=== PATIENT | male | born 1950 | race Caucasian/White ===

== ENCOUNTER → 2017-08-10 12:08 | Outpatient (CLI) | payer MEDICARE, OTHER, SELFPAY ==
--- NOTE | 2017-07-09 13:48 | EKG12_ITS ---
Test Reason : PRE OP Blood Pressure : / mmHG Vent. Rate : 068 BPM Atrial Rate : 068 BPM P-R Int : 176 ms QRS Dur : 078 ms QT Int : 380 ms P-R-T Axes : 073 -08 056 degrees QTc Int : 404 ms Normal sinus rhythm Low voltage QRS Possible Inferior infarct , age undetermined Abnormal ECG Confirmed by REMIGIO CROSS, GIL ([id number]), purchase request editor AMBREEN RIVERA ([id number]) on 07/12/2017 3:20:43 PM Referred By: Pramod Martin Confirmed By:GIL FLOOD MD
[2017-07-09 15:33] LABS: Hematocrit 44.9 % (40-54); Hemoglobin 14.8 g/dl (13.0-16.5); Mean Corpuscular Hgb 28.8 pg (27.0-32.0); Mean Corpuscular Volume 87.5 fL (80-94); Mean Platelet Vol. 11.5 fl (6.2-12.0); Platelet Count 178 K/mm3 (150-450); RBC Distribution Width CV 14.2 % (11.6-14.6); RBC Distribution Width SD 44.6 fl (35.1-43.9); Red Blood Count 5.13 M/mm3 (4.6-6.2); White Blood Count 8.5 K/mm3 (4.4-11.0)
[2017-07-09 15:41] LABS: International Normalized Ratio 1.1; Prothrombin Time (Protime)PT. 13.4 SECONDS (11.7-14.9); Scan Indicated on CBC? Y/N NO
[2017-07-09 15:42] LABS: Partial Thromboplast Time 34.9 Seconds (24.1-36.2)
[2017-07-09 16:06] LABS: AST(SGOT) 14 U/L (15-37); Alanine Aminotransfer ALT/SGPT 17 U/L (12-78); Albumin, Serum 3.4 g/dL (3.4-5.0); Alkaline Phosphatase 83 U/L (45-117); Anion Gap 9 (5-15); BUN 16 mg/dL (7-18); BUN/Creat Ratio 9.9 RATIO (10-20); Bilirubin, Direct 0.14 mg/dL (0.00-0.30); Calcium,Total 8.5 mg/dL (8.5-10.1); Chloride 98 mmol/L (98-107); Creatinine, Serum 1.62 mg/dL (0.70-1.30); EST Glomerular Filtration Rate 45 mL/min (>60); Est Glom Filt Rate - Afr Amer 55 mL/min (>60); Globulin 3.9 g/dL (2.2-4.2); Glucose 339 mg/dL (70-110); Potassium 4.4 mmol/L (3.5-5.1); Protein, Total 7.3 g/dL (6.4-8.2); Sodium Level 134 mmol/L (136-145)
[2017-07-09 16:32] LABS: Hemoglobin A1c 9.5 % (4.2-6.3)
== END ==
PROVIDERS: Family Provider Family Medicine; PCP Family Medicine; Visit Provider Surgery
DX: R94.31 Abnormal electrocardiogram [ECG] [EKG] (principal); Z53.9 Procedure and treatment not carried out, unspecified reason; I25.10 Atherosclerotic heart disease of native coronary artery without angina pectoris; Z95.5 Presence of coronary angioplasty implant and graft; E11.9 Type 2 diabetes mellitus without complications
CPT/HCPCS: 36415; 80048; 80076; 83036; 85027; 85610; 85730

== ENCOUNTER 2017-08-20 12:24 | Day surgery (SDC) | payer MEDICARE, OTHER, SELFPAY ==
[2017-08-20] VITALS (7 sets, daily range): BP systolic 127–171; BP diastolic 65–89; PULSE 54–68; RESP 16–20; TEMP 36.2–37; O2SAT 82–100; BMI 46.9
[2017-08-20 13:21] LABS: Bedside Glucose 183 mg/dL (70-110)
--- NOTE | 2017-08-20 14:00 | RAD_ITS ---
STUDY: X-RAY - LUMBAR SPINE REASON FOR EXAM: Male, 67 years old. Status post kyphoplasty TECHNIQUE: 7 view(s) of the lumbar spine were obtained. COMPARISON: Prior study of 03/04/2017 FINDINGS: Status post vertebroplasty changes of unknown level vertebral body noted. There is moderately severe decrease in vertical height with anterior wedging of this vertebral body. There is demonstrated a small amount of contrast extravasation into the adjacent superior disc space. RAD/Spine 1 View Any Level IMPRESSION: Status post vertebroplasty changes of an unknown level vertebral body. There is a small amount of contrast extravasation into the disc space superior to this vertebra. Electronically Signed: Alejandro Weinberg MD at 16:13 EST , Service support ,
[2017-08-20] MEDS: Cefazolin 2 GM in 0.9% Normal Saline 100 ML IV (14:24)
[2017-08-20] MEDS: Bupivacaine 0.25% 30 ML Vial (15:00)
[2017-08-20 15:40] LABS: Bedside Glucose 191 mg/dL (70-110)
--- NOTE | 2017-08-20 16:59 | SUR.PHASEII ---
reports that patient has no pain meds at home. Called Dr Yu office. Office states that Dr Lombardi can write a script for a couple days worth of pain meds and that patient can pick it up at the office. Notified patient and family of above info. They state they will probably not scrap picker the script as it will be a hassle. gave discharge instruction for kyphoplasty from [facility] on demand. patient and family deny questions.
== END 2017-08-20 17:03 | disposition home or self-care (01) ==
LOC: SDC 12:25 → ACINP 12:26 → AC 12:32
PROVIDERS: Family Provider Family Medicine; PCP Family Medicine; Visit Provider Anesthesiology Pain Medicine
DX: S22.089A Unspecified fracture of T11-T12 vertebra, initial encounter for closed fracture (principal); M89.9 Disorder of bone, unspecified; M80.08XA Age-related osteoporosis with current pathological fracture, vertebra(e), initial encounter for fracture; I10 Essential (primary) hypertension; K21.9 Gastro-esophageal reflux disease without esophagitis; F32.9 Major depressive disorder, single episode, unspecified; E11.9 Type 2 diabetes mellitus without complications; E78.00 Pure hypercholesterolemia, unspecified; Z79.4 Long term (current) use of insulin; Z87.891 Personal history of nicotine dependence; Z85.72 Personal history of non-Hodgkin lymphomas
CPT/HCPCS: 22513; 22515; 72020; 76000; 82962; J3010; J7120; J2405

== ENCOUNTER → 2017-09-29 13:26 | Outpatient (CLI) | payer MEDICARE, OTHER, SELFPAY ==
[2017-09-29 14:11] LABS: Amphetamine Urine VISTA NEGATIVE (<1000 ng/mL); Barbiturate Urine VISTA NEGATIVE (< 200 ng/mL); Benzodiazepine Urine VISTA NEGATIVE (< 200 ng/mL); Cocaine Urine VISTA NEGATIVE (< 300 ng/mL); Ecstacy Urine VISTA NEGATIVE (< 500 ng/mL); Methadone Urine VISTA NEGATIVE (< 300 ng/mL); PCP Urine VISTA NEGATIVE (< 25 ng/mL); THC Urine VISTA NEGATIVE (< 50 ng/mL); Vista UDS pH Range 6
== END ==
PROVIDERS: Family Provider Family Medicine; PCP Family Medicine; Visit Provider Anesthesiology Pain Medicine
DX: F11.20 Opioid dependence, uncomplicated (principal)
CPT/HCPCS: 80307

== ENCOUNTER 2017-11-16 16:08 | Emergency (ER) | payer MEDICARE, OTHER, SELFPAY ==
[2017-11-16 16:09] VITALS: BP 120/68; PULSE 65; RESP 20; TEMP 36.7; O2SAT 98; BMI 44.7
--- NOTE | 2017-11-16 16:12 | RAD_ITS ---
STUDY: X-RAY - LEFT HAND REASON FOR EXAM: Male, 67 years old. Smashed fingers TECHNIQUE: 3 view(s) of the hand. There is a ring on the fourth digit. COMPARISON: None. FINDINGS: There is a well-corticated appearing step-off in the distal radius suggesting prior injury. There is positive ulnar variance and chondrocalcinosis. Normal visualized carpal bones. Normal carpal articulations Normal carpometacarpal articulation of the thumb. Normal second through fifth carpometacarpal joints. Normal metacarpi. Normal metacarpophalangeal joint of the thumb. Normal interphalangeal joint of the thumb. Normal proximal and distal phalanges of the thumb. There is chondrocalcinosis or heterotopic bone at the metacarpophalangeal joint of the second digit and to a lesser degree the third digit. There is degenerative change of the first through fifth distal interphalangeal joints. Normal phalanges of the second through fifth fingers. RAD/Hand Min 3 Views IMPRESSION: Remote or prior fracture of the distal radius. Chondrocalcinosis involving the wrist and metacarpophalangeal joints of the second and third digits consistent with degenerative change and can be associated with osteoarthritis and/or other etiologies such as pleural phosphate arthritides. There is degenerative change without definitive evidence of an acute fracture of the second and third digits. Electronically Signed: Siobhan Alex MD at 16:37 EDT Tel , Service support ,
--- NOTE | 2017-11-16 17:09 | ED.DCSUM_ITS ---
- ER Visit Summary Date of Service: 11/16/17 Chief Complaint: Left hand injury History of Present Illness: The patient is a 67 M who states that just prior to arrival he was putting in screens and a storm window came down smashing his fingertips. He notes injury to the left index and long fingertips. Physical Examination: Afebrile vital signs are stable There is a very small subungual hematoma involving the left index fingernail. There is a 0.5 cm superficial well approximated non-gaping laceration to the volar aspect of the left long finger. Test Results: Hand films through protocol were negative for fracture Emergency Department Course and Treatment: Tetanus is updated with Adacel. Wound was cleansed and dressed. Follow-up as needed return if worsening. Impression: 1. Left index finger subungual hematoma 2. Left long finger 0.5 cm laceration without repair 3. Tetanus update This note was generated with [employer] dictation software. It may contain incorrect words, spelling, and punctuation that were not noted in review of the chart prior to signing ED Disposition - Plan for ED Patient: Disposition: Home or Assisted Living Chief Complaint: Upper Extremity Injury Instructions: Subungual Hematoma, ED Laceration Hand Referrals: Jorge Dao DO [Primary Care Provider] - As Needed
[2017-11-16] MEDS: Diphth,Pertuss(Acell),Tet Vac 0.5 ML Vial IM (17:27)
== END 2017-11-16 17:31 | disposition home or self-care (01) ==
PROVIDERS: Emergency Provider Emergency Medicine; Family Provider Family Medicine; PCP Family Medicine
DX: S61.213A Laceration without foreign body of left middle finger without damage to nail, initial encounter (principal); S60.122A Contusion of left index finger with damage to nail, initial encounter; W22.8XXA Striking against or struck by other objects, initial encounter; Y93.9 Activity, unspecified; Y92.9 Unspecified place or not applicable; Z23 Encounter for immunization; I10 Essential (primary) hypertension; E78.00 Pure hypercholesterolemia, unspecified; E66.9 Obesity, unspecified; Z79.4 Long term (current) use of insulin; Z79.899 Other long term (current) drug therapy
CPT/HCPCS: 73130; 90715; 99282

== ENCOUNTER 2017-12-15 13:00 | Inpatient (IN) | payer MEDICARE, OTHER, SELFPAY ==
[2017-12-15 13:02] VITALS: BP 128/68; PULSE 60; PULSE 66; RESP 18; TEMP 36.3; O2SAT 98; BMI 43.7
[2017-12-15 13:23] VITALS: O2SAT 95
--- NOTE | 2017-12-15 13:37 | CT_ITS ---
STUDY: CT BRAIN WITHOUT CONTRAST REASON FOR EXAM: Male, 67 years old. Fall. History of subdural hemorrhage 2014. RADIATION DOSAGE (If Supplied By Facility): CTDIvol = ( 44.99 ) mGy, DLP = ( 812.98 ) mGycm TECHNIQUE: Transaxial CT imaging of the brain was performed without administration of intravenous contrast material. Individualized dose optimization techniques were used for this CT. COMPARISON: January 29, 2015. FINDINGS: Normal soft tissue structures. Normal calvarium. There is asymmetry of the ventricles consistent with an anatomic variant. There are areas of decreased attenuation within the white matter tracts of the supratentorial brain, consistent with microvascular disease changes. This is most marked in the right frontal region. Normal basal ganglia and thalami. Normal brainstem. Normal cerebellum. There is no intracranial hemorrhage. There are no findings of an acute ischemic infarction. There is stable mucoperiosteal reaction in the maxillary sinuses. CT/Brain/Head without Contrast IMPRESSION: 1. Focal area of low attenuation in the right frontal white matter thought to represent a remote infarct. This was not present on the prior exam. There is no evidence of edema midline shift or sulcal effacement to suggest acuity. Remainder of the findings are unchanged and unremarkable. Electronically Signed: Kayode Mohan DO at 15:03 EDT Tel [phone], Service support ,
--- NOTE | 2017-12-15 13:38 | EKG12_ITS ---
Test Reason : FALL Blood Pressure : / mmHG Vent. Rate : 060 BPM Atrial Rate : 060 BPM P-R Int : 168 ms QRS Dur : 096 ms QT Int : 424 ms P-R-T Axes : 035 -13 048 degrees QTc Int : 424 ms Normal sinus rhythm Normal ECG Confirmed by CARITO GREWAL MD ([id number]), news editor AMBREEN RIVERA ([id number]) on 12/28/2017 12:58:14 PM Referred By: BAR Confirmed By:CARITO GREWAL MD
[2017-12-15] MEDS: Morphine 4 MG/ML Syringe IV (14:23)
[2017-12-15] MEDS: Ondansetron 4 MG/2 ML Vial IV (14:23)
[2017-12-15 14:27] LABS: Absolute Lymphocyte Count 0.81 X10^3/ul (0.83-4.51); Absolute Neutrophil Count 8.7 X10^3/uL (2.0-7.7); Basophil# 0.01 X10^3/uL; Basophil% 0.1 % (0-1); Eosinophil# 0.08 X10^3/uL; Eosinophils% 0.8 % (0-5); Hematocrit 43.9 % (40-54); Hemoglobin 14.5 g/dl (13.0-16.5); Lymphocyte # 0.81 X10^3/ul (4.0); Lymphocyte % 7.6 % (19-41); Mean Corpuscular Hgb 27.6 pg (27.0-32.0); Mean Corpuscular Volume 83.5 fL (80-94); Mean Platelet Vol. 11.6 fl (6.2-12.0); Monocyte# 0.98 X10^3/uL; Monocyte% 9.2 % (0-10); Neutrophil # 8.71 X10^3/uL (2.7-7.7); Platelet Count 185 K/mm3 (150-450); RBC Distribution Width CV 15.1 % (11.6-14.6); RBC Distribution Width SD 45.8 fl (35.1-43.9); Red Blood Count 5.26 M/mm3 (4.6-6.2); White Blood Count 10.6 K/mm3 (4.4-11.0)
[2017-12-15 14:28] LABS: POSITIVE COUNT NO; POSITIVE DIFFERENTIAL NO; POSITIVE MORPHOLOGY NO
[2017-12-15 14:44] LABS: Anion Gap 6 (5-15); BUN 18 mg/dL (7-18); BUN/Creat Ratio 11.5 RATIO (10-20); Calcium,Total 8.2 mg/dL (8.5-10.1); Chloride 104 mmol/L (98-107); Creatinine, Serum 1.57 mg/dL (0.70-1.30); EST Glomerular Filtration Rate 47 mL/min (>60); Est Glom Filt Rate - Afr Amer 57 mL/min (>60); Estimated Creatinine Clearance 47.96 ml/min; Glucose 139 mg/dL (74-106); Potassium 4.2 mmol/L (3.5-5.1); Sodium Level 138 mmol/L (136-145)
--- NOTE | 2017-12-15 14:55 | RAD_ITS ---
STUDY: X-RAY - UNILATERAL RIBS ( LEFT ) WITH CHEST REASON FOR EXAM: Male, 67 years old. Left mid lateral rib pain secondary to injury. TECHNIQUE - RIBS: 5 view(s) of the ribs. TECHNIQUE - CHEST: Single PA view of the chest. COMPARISON: April 05, 2016. FINDINGS - RIBS: Normal visualized ribs without a demonstrated fracture. FINDINGS - CHEST: Stable right jugular Port-A-Cath. The lungs are clear and expanded. No acute infiltrate or mass. There is no pneumothorax. There is no demonstrated pleural abnormality. Normal size heart. Normal mediastinum and tanya. Normal visualized pulmonary arteries. Normal visualized aortic arch and descending thoracic aorta. There are diffuse degenerative changes of the visualized thoracic spine. There is degenerative osteoarthritis of the bilateral shoulders. There is no demonstrated abnormality of the visualized soft tissue structures of the upper abdomen. RAD/Ribs Uni Min 3V w/PA Chest IMPRESSION: RIBS: Normal x-ray examination of the ribs. CHEST: No acute cardiopulmonary disease or interval change. Electronically Signed: Kayode Mohan DO at 15:11 EDT Tel [phone], Service support ,
[2017-12-15 15:57] VITALS: BP 127/60; PULSE 80; RESP 18; O2SAT 96
--- NOTE | 2017-12-15 15:59 | ED.VISSUMM ---
- ER Visit Summary Date of Service: 12/15/17 Chief Complaint: Ribs hurt History of Present Illness: The patient is a 67 M with frequent falls. He fell today and hit his left ribs on a lawn chair. He fell because his legs are weak. This is not a new issue, and he falls frequently. He does use a cane, but is unsteady even with the cane. He denies loss of consciousness. He denies head or neck pain. He only complains of pain to his left lateral chest wall. Worse with breathing and moving. Physical Examination: Vital signs unremarkable. Alert and oriented. No acute distress. Head and neck atraumatic. Neck nontender. Cranial nerves grossly intact. Heart regular. Lungs clear. Left anterior lateral inferior ribs are tender to palpation. No crepitus or deformity noted. Abdomen soft and nontender. Back is nontender. Extremities atraumatic. Skin appears slightly pale but otherwise unremarkable. He is alert and oriented with no focal or lateralizing neurologic abnormalities grossly. Test Results: EKG showed sinus rhythm at a rate of 60. No acute ischemia or infarction changes. CBC normal. Glucose 139 creatinine 1.57. Urinalysis pending. Troponin normal. X-rays of his ribs and chest showed no acute findings. 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 Emergency Department Course and Treatment: Patient received fluids, morphine, and Zofran while awaiting results. Patient's expressed to me that he falls very frequently. He is unsteady on his feet at baseline. He is continuing to do worse at home and she is concerned about his safety. Patient also does not feel comfortable going home. I advised that there is not much to do to help him in a short stay in the hospital, but he may require custodial or rehab placement. He voiced understanding. We will contact the hospitalist for further care. Treatment Plan: As above Disposition: Admission Impression: 1. Frequent falls 2. Left rib pain This note was generated with [employer] dictation software. It may contain incorrect words, spelling, and punctuation that were not noted in review of the chart prior to signing ED Disposition - Plan for ED Patient: Chief Complaint: Fall Referrals: Jorge Dao DO [Primary Care Provider] -
--- NOTE | 2017-12-15 16:03 | ED.DCSUM_ITS ---
- ER Visit Summary Date of Service: 12/15/17 Chief Complaint: Ribs hurt History of Present Illness: The patient is a 67 M with frequent falls. He fell today and hit his left ribs on a lawn chair. He fell because his legs are weak. This is not a new issue, and he falls frequently. He does use a cane, but is unsteady even with the cane. He denies loss of consciousness. He denies head or neck pain. He only complains of pain to his left lateral chest wall. Worse with breathing and moving. Physical Examination: Vital signs unremarkable. Alert and oriented. No acute distress. Head and neck atraumatic. Neck nontender. Cranial nerves grossly intact. Heart regular. Lungs clear. Left anterior lateral inferior ribs are tender to palpation. No crepitus or deformity noted. Abdomen soft and nontender. Back is nontender. Extremities atraumatic. Skin appears slightly pale but otherwise unremarkable. He is alert and oriented with no focal or lateralizing neurologic abnormalities grossly. Test Results: EKG showed sinus rhythm at a rate of 60. No acute ischemia or infarction changes. CBC normal. Glucose 139 creatinine 1.57. Urinalysis pending. Troponin normal. X-rays of his ribs and chest showed no acute findings. 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 Emergency Department Course and Treatment: Patient received fluids, morphine, and Zofran while awaiting results. Patient's expressed to me that he falls very frequently. He is unsteady on his feet at baseline. He is continuing to do worse at home and she is concerned about his safety. Patient also does not feel comfortable going home. I advised that there is not much to do to help him in a short stay in the hospital, but he may require mcc or rehab placement. He voiced understanding. We will contact the hospitalist for further care. Treatment Plan: As above Disposition: Admission Impression: 1. Frequent falls 2. Left rib pain This note was generated with [employer] dictation software. It may contain incorrect words, spelling, and punctuation that were not noted in review of the chart prior to signing ED Disposition - Plan for ED Patient: Chief Complaint: Fall Referrals: Jorge Dao DO [Primary Care Provider] -
--- NOTE | 2017-12-15 16:05 | CM.ED ---
CM INITIAL ASSESSMENT: Patient assessed in the ED with his at bedside. Home: Patient lives in a one story home with his . He states there are no steps into the home. HHS/Aides: Patient denies currently having HHS/aides. He states he's previously had HHS through [facility] and would be agreeable to receiving care from [facility] again, if needed. DME: Patient states he uses a cane, showever chair, and grab bars for the shower. He has a walker available to him. Home Oxygen: Denies. Pharmacy: [facility] in [place] Advance Directives: Yes, patient states his medical POA is Jorge Dao. Upon viewing patient's e-chart, the scanned AD documents are in fact for the patient's . Will notify family and request them to bring in the correct documents. PCP: Jorge Dao Specialists: Dr. Skelton, Dr. Villafana, Dr. Pandey at [facility] for non hodgkin's lymphoma, and [facility] for skin cancer removal. DC Plan: Undetermined. Patient would like to return home upon discharge. Patient's states that the patient was a resident at [facility] three years ago after a brain bleed. CM will continue to follow for safe and effective discharge planning.
[2017-12-15 16:13] VITALS: BP 139/69; PULSE 58; RESP 18; TEMP 34.4
--- NOTE | 2017-12-15 16:20 | CM.ED ---
Patient states that, if a senior living home is recommended, his preference would be [facility]. He was a previous resident there approximately three years ago. Patient and updated to bring in patient's advance directive documents to be correctly scanned to e-chart. HIM notified to correct chart.
[2017-12-15 16:35] LABS: Bacteria 0 SEEN /hpf (None Seen); Mucous, Urine 0 SEEN /hpf (<or=2+); Red Blood Cells-Urine 0 SEEN /hpf (0-5)
[2017-12-15 16:37] LABS: Color, Urine Yellow (Yellow); Glucose, Dipstick Normal (Normal); Ketone-Dipstick Negative (Negative); Leukocyte Esterase-Dipstick 100 /ul (Negative); Nitrite-Dipstick Negative (Negative); Occult Blood-Urine Negative /ul (Negative); Protein-Dipstick Negative (Negative); Specific Gravity, Urine 1.015 (1.002-1.030); Urine Bilirubin Dipstick Negative (Negative); Urine Clarity Sl. Cloudy (Clear); Urine Urobilinogen Normal (Normal)
--- NOTE | 2017-12-15 16:37 | HP.PCM_ITS ---
Problem List (1) Acute on chronic renal failure Status: Acute (2) Non Hodgkin's lymphoma Status: Chronic (3) Hypertension Status: Chronic (4) Morbid obesity Status: Chronic (5) Diabetes mellitus Status: Chronic (6) Hyperlipidemia Status: Chronic History of Present Illness Date of Admission: 12/15/17 Chief Complaint: Recurrent falls The patient is a 67 year old M with past medical history of essential hypertension, obesity, dyslipidemia, type 2 diabetes and non Hodgkin's lymphoma who presented to the emergency room due to recurrent falls. He most recently fell last night and presents today with left-sided chest wall pain. He denied any associated shortness of breath, chest x ray done in the emergency room is unremarkable. Due to his recurrent falls his family is concerned that they may not be able take care of him at home and he will like to go to a residential facility for rehab. . Past Medical History Past Medical History (Chronic Problems): Chronic Problems Pancytopenia (Chronic) Non Hodgkin's lymphoma (Chronic) Hypertension (Chronic) Morbid obesity (Chronic) History of DVT (deep vein thrombosis) (Chronic) Diabetes mellitus (Chronic) Hyperlipidemia (Chronic) Allergies niacin Allergy (Verified 12/15/17 13:01) Hives piroxicam [From Feldene] Adverse Reaction (Verified 12/15/17 13:01) Upset Stomach rivaroxaban [From Xarelto] Adverse Reaction (Verified 12/15/17 13:01) BRAIN BLEED Home Medications: Ambulatory Orders Medication Instructions Recorded Ascorbic Acid [Vitamin C] 1,000 mg PO DAILY@0800 05/30/13 Atorvastatin Calcium [Lipitor] 80 mg PO DAILY 05/30/13 Paroxetine HCl [Paxil] 20 mg PO DAILY 12/04/14 Pantoprazole Sodium [Protonix] 40 mg PO DAILY 02/14/16 Multivitamins,Therapeutic 1 tablet PO DAILYCM tablet 03/12/16 [Multivitamin] Furosemide 40 mg PO DAILY 04/05/16 Amlodipine [Norvasc] 5 mg PO DAILY 07/08/17 Enoxaparin Sodium [Lovenox] 40 mg SQ QHS 07/08/17 Insulin Aspart [Novolog Flexpen] 50 units SC TIDAC 07/08/17 Insulin Glargine [Lantus (BKC)] 50 units SC BID 07/08/17 Metoprolol Tartrate [Lopressor 12.5 mg PO BID 07/08/17 (beta jacoby)] Surgical History: noncontributory Psychiatric History: No pertinent psych hx Smoking Status: Former smoker - *Family History Maternal History Items: No pertinent history Paternal History Items: No pertinent history Review of Systems Comment: All Systems were reviewed with pertinent positives mentioned in the HPI above. VTE Information - Inpt Only VTE Present on Admission: No VTE Mechan Device Prophylaxis: SCD's VTE Pharm Prophylaxis ordered?: No - Physical Exam General: Alert, Oriented x3 Neck: Supple, No JVD Lungs: Clear to auscultation, No rales Cardiovascular: Regular rate, Normal S1, Normal S2 Abdomen: Bowel Sounds Present, Soft, Non Tender, Non-Distended Extremities: No edema Neurological: Cranial nerves II-XII grossly intact, Motor Exam 5/5 strength throughout Psych/Mental Status: Normal Affect Vital Signs Temp Pulse Resp BP Pulse Ox 94 F L 58 L 18 139/69 H 96 12/15/17 16:13 12/15/17 16:13 12/15/17 16:13 12/15/17 16:13 12/15/17 15:57 Oxygen Delivery Method Room Air Weight: 142 kg Body Mass Index (BMI) 43.7 Finger Stick Blood Glucose 191 Laboratory Tests Past 24 Hrs 12/15/17 12/15/17 12/15/17 14:19 14:19 16:30 WBC 10.6 RBC 5.26 Hgb 14.5 Hct 43.9 MCV 83.5 MCH 27.6 MCHC 33.0 RDW 15.1 H RDW Differential 45.8 H Plt Count 185 MPV 11.6 Immature Gran % (Auto) 0.300 Neut % (Auto) 82.0 H Lymph % (Auto) 7.6 L [place] % (Auto) 9.2 Eos % (Auto) 0.8 Baso % (Auto) 0.1 Absolute Neuts (auto) 8.7 H Absolute Lymphs (auto) 0.81 L Total Counted Not Reportable Sodium 138 Potassium 4.2 Chloride 104 Carbon Dioxide 28.0 Anion Gap 6 BUN 18 Creatinine 1.57 H Estim Creat Clear Calc 47.96 Est GFR (MDRD) Af Amer 57 L Est GFR (MDRD) Non-Af 47 L BUN/Creatinine Ratio 11.5 Glucose 139 H Calcium 8.2 L Troponin I < 0.015 Urine Color Pending Urine Clarity Pending Urine pH Pending Ur Specific [place] Pending Urine Protein Pending Urine Glucose (UA) Pending Urine Ketones Pending Urine Occult Blood Pending Urine Nitrite Pending Urine Bilirubin Pending Urine Urobilinogen Pending Ur Leukocyte Esterase Pending Urine RBC Pending Urine WBC Pending Ur Squamous Epith Cells Pending Urine Bacteria Pending Urine Mucus Pending Assessment/Plan All Active Problems Sepsis (Acute) Acute on chronic renal failure (Acute) Hyponatremia (Acute) Febrile neutropenia (Acute) 1. Recurrent falls; fall precautions PT/OT, social workers and case management to evaluate for residential facility. 2. Left chest wall contusion status post fall; no rib fracture noted, would optimize pain control 3. Morbid obesity; weight loss recommended. 4. Diabetes type 2, will resume his home insulin regimen as it is. 5. Stage III chronic kidney disease; would avoid potential nephrotoxic medications, will monitor his renal parameters closely. 6. History of non-Hodgkin's lymphoma; he is in remission. 7. History of DVT ; he is currently not on anticoagulation therapy. We will start him on Lovenox for DVT prophylaxis Code Visit OBSV E&M: [id number] Initial observation care L3
[2017-12-15 16:44] LABS: Squamous Epithelial Cells - UA 0-5 SEEN /hpf (0-5)
[2017-12-15 16:46] LABS: White Blood Cells 0-5 SEEN /hpf (0-5)
[2017-12-15 17:04] VITALS: BMI 43.7
[2017-12-15 17:10] VITALS: BMI 43.8
[2017-12-15 17:55] LABS: Bedside Glucose 93 mg/dL (70-110)
[2017-12-15 22:00] VITALS: BP 135/74; PULSE 57; RESP 18; TEMP 36.8; O2SAT 96
[2017-12-15 22:15] VITALS: PULSE 57
[2017-12-15] MEDS: Metoprolol(XL)Succ 25 MG Tablet 12.5 MG PO (22:15)
[2017-12-15] MEDS: traMADol 50 MG Tablet PO (22:18)
[2017-12-15 23:01] LABS: Bedside Glucose 167 mg/dL (70-110)
[2017-12-16] VITALS (10 sets, daily range): BP systolic 107–151; BP diastolic 49–80; PULSE 52–61; RESP 14–18; TEMP 36.4–36.8; O2SAT 92–98
[2017-12-16 06:56] LABS: Bedside Glucose 119 mg/dL (70-110)
[2017-12-16] MEDS: traMADol 50 MG Tablet PO ×2 (07:24→21:43)
[2017-12-16] MEDS: Ascorbic Acid 500 MG Tablet 1000 MG PO (08:07)
[2017-12-16] MEDS: Pantoprazole Sodium 40 MG Tablet PO (08:07)
[2017-12-16] MEDS: amLODIPine 5 MG Tablet PO (08:07)
[2017-12-16] MEDS: Multivitamins,Therapeutic Tablet 1 TABLET PO (08:07)
[2017-12-16] MEDS: Metoprolol(XL)Succ 25 MG Tablet 12.5 MG PO ×2 (08:08→21:38)
[2017-12-16] MEDS: Enoxaparin 40 MG/0.4 ML Syringe SC (08:09)
--- NOTE | 2017-12-16 10:06 | MRI_ITS ---
STUDY: MRI BRAIN WITHOUT CONTRAST REASON FOR EXAM: Male, 67 years old. WEAKNESS,RECURRENT FALLS, HX PRIOR BLEED, NON HODGKINS LYMPHOMA TECHNIQUE: Standardized multiplanar fat and water weighted pulse sequences were obtained. COMPARISON: CT December 15, 2017 FINDINGS: Motion artifact limits the exam. There is a small area of DWI hyperintensity of the medial right frontal lobe which does not demonstrate associated ADC hypointensity. On the T2 and FLAIR sequences there is associated hyperintensity. No focal lesion is seen. The findings are suspicious for a metastasis. There could be another smaller metastasis of the right occipital lobe medially. There appear to be several early subacute lacunar infarcts of the centrum semiovale, tomas radiata and basal ganglia on the right which demonstrate DWI, T2 and FLAIR hyperintensity. There is no significant mass effect or midline shift. Normal thalami. There is no extra-axial fluid accumulation. Normal flow voids within the major intracranial circulation suggesting patency by spin echo criteria. Normal sella turcica, pituitary gland, infundibular stalk, optic chiasm and hypothalamus. Normal tectal plate and pineal gland. Normal midbrain, sukumar and medulla. Normal cerebellum. Normal basal cisterns. There is minimal fluid in the left mastoid air cells.. Normal bilateral internal auditory canals. No demonstrated orbital abnormality, within the constraints of a routine brain study. There is mild right maxillary sinusitis.. Normal calvarium and skull base. Normal visualized soft tissue structures. Normal visualized upper cervical spine. MRI/Brain without Contrast IMPRESSION: There is suspicion of metastatic disease. Contrast-enhanced MRI sequences are recommended. There appear to be early subacute infarcts of the right cerebrum. Electronically Signed: Annemarie Riggs MD at 13:53 EDT , Service support ,
[2017-12-16] MEDS: Glucerna Shake 120 ML LIQUID PO ×2 (11:45→17:14)
--- NOTE | 2017-12-16 13:48 | PCM.PROGNOTE ---
<Kishore Rodríguez - Last Filed: 12/16/17 16:09> Subjective: Pt desires placement. States he was walking into his house and collapsed suddenly. He denies LOC. He denies focal weakness, dizziness, LH, numbness, tingling, blurry vision. NO CP today and no SOB or pleurisy. - Physical Exam General: Alert, Oriented x3, Cooperative HEENT: Atraumatic, PERRLA, EOMI, Normocephalic Neck: Supple, No JVD, Negative Carotid Bruits Lungs: Clear to auscultation, Normal air movement Cardiovascular: Regular rate, No murmurs Abdomen: Bowel Sounds Present, Soft, Non Tender Extremities: No edema, Capillary Refill Less than 3 Seconds Skin: No rashes, No breakdown Musculoskeletal: No Tenderness to Palpation of Joints or Extremities Neurological: Cranial nerves II-XII grossly intact Psych/Mental Status: Normal Affect, Appropriate, Alert and oriented to time, place, person, mood and affect Vital Signs Temp Pulse Resp BP Pulse Ox 97.8 F 52 L 18 130/64 H 94 12/16/17 08:02 12/16/17 08:08 12/16/17 08:02 12/16/17 08:02 12/16/17 08:02 Oxygen Delivery Method Room Air Weight: 142.4 kg Body Mass Index (BMI) 43.7 Intake and Output for Last 24 Hours 12/14/17 12/15/17 12/16/17 23:59 23:59 23:59 Intake Total 480 / 480 Balance 480 / 480 Laboratory Tests Past 24 Hrs 12/15/17 16:30 Urine Color Yellow Urine Clarity Sl. Cloudy Urine pH 6.0 Ur Specific [place] 1.015 Urine Protein Negative Urine Glucose (UA) Normal Urine Ketones Negative Urine Occult Blood Negative Urine Nitrite Negative Urine Bilirubin Negative Urine Urobilinogen Normal Ur Leukocyte Esterase 100 H Urine RBC 0 SEEN Urine WBC 0-5 SEEN Ur Squamous Epith Cells 0-5 SEEN Urine Bacteria 0 SEEN Urine Mucus 0 SEEN POC Glucose 12/16/17 12/15/17 12/15/17 06:51 22:10 17:48 POC Glucose 119 H 167 H 93 Medical Necessity - Tobacco Use Smoking Status: Former smoker Assessment/Plan All Active Problems Sepsis (Acute) Acute on chronic renal failure (Acute) Hyponatremia (Acute) Febrile neutropenia (Acute) 1. Recurrent falls - ct brain with possible remote infarct. He will have an MRI to better evaluate. Continue PTOT. Rib XR without evidence of fracture. UA neg. Trop neg. If prior CVA: should restart statin and consider aspirin ? hx brain bleed from xarelto in chart. 2. CKD III - does not appear significantly above baseline. 3. DMt2 - continue current therapy 4. Hx NHL - in remission 5. Morbid obesity - dietary consult. 6. Hx DVT - not on OAC. ppx ordered. DVT ppx: heparin DC planning: pt now stating he wants to go home. This patient was seen by Kishore Rodríguez PA-C under the supervision of Doctor Alyce. <Rosario Mead E - Last Filed: 12/17/17 08:00> - Physical Exam Vital Signs Temp Pulse Resp BP Pulse Ox 98.1 F 59 L 18 151/75 H 98 12/16/17 14:02 12/16/17 15:14 12/16/17 14:02 12/16/17 14:02 12/16/17 14:02 Assessment/Plan Hospitalist note: I am seeing this patient in conjunction with Kishore Rodríguez. I independently seen and examined the patient. Progress note above, laboratory data and imaging studies reviewed and I agree with above treatment plan. Patient was admitted because of frequent falls, had a fall before the day of admission in his left side. He complained of left lateral rib pain. He denied chest pain shortness of breath. Denied headache, blurred vision or slurred speech. His vital signs are stable. - Physical Exam General: Alert, Oriented x3, Cooperative, No apparent distress. HEENT: Atraumatic, PERRLA, EOMI. Neck: Supple, No JVD, Negative Carotid Bruits, Trachea Midline, Thyroid Normal. Lungs: Clear to auscultation, Normal air movement, No rhonchi, No wheeze, No rales. Cardiovascular: Regular rate, Regular Rhythm, Normal S1, Normal S2, PMI Normal. Abdomen: Bowel Sounds Present, Soft, Non Tender, Non-Distended, No Hepato-splenomegaly. Extremities: No clubbing, No cyanosis, No edema Skin: No rashes, No breakdown Neurological: Neuro grossly intact Vital Signs are stable. Assessment and plan: #1 recurrent falls/left lateral rib pain: CT scan brain with possible old infarct. X-ray of the ribs showed no acute fractures, official report is pending. Urine analysis revealed no evidence of acute cystitis. MRI brain revealed suspicious metastatic right frontal lobe lesion as well as a likely subacute infarct of the right cerebrum. Patient had a history of cerebral bleed while on Xarelto back in 2014. He had another episode of cerebral bleed while on Lovenox 07/10/2016 for DVT. Plan for PT OT evaluation and treatment. #2 abnormal MRI: It showed questionable metastatic right frontal lesion as well as subacute infarct of the right cerebrum. He has no focal deficit. Oncology consulted, recommended MRI of the brain with contrast. Neurology consulted for probable stroke, 2D echocardiogram and bilateral carotid Doppler ordered. #3 other chronic medical problems: Stable, continue current medications as above. This note was generated with [employer] dictation software. It may contain incorrect words, spelling, and punctuation that were not noted in checking the note before signing. Code Visit Inpatient E&M: 82526 Subs Hosp L3
--- NOTE | 2017-12-16 13:58 | PN_ITS ---
Addendum entered and electronically signed by ALISON Lyons 12/16/17 16:14: Code Visit Called patient's PCP Dr. Dao who was able to offer the following historical items: -Patient's Oncologist is Dr. Hogan at [facility] -He had Cerebral bleed on xarelto and had a drain placed for this at [facility] 6.16.15. -He had cerebral bleed while on lovenox for DVT 05/2017 -He had Diffuse B cell lymphoma in 2012 -He had Testicular Cancer with orchiectomy 1991 -His activity has been dimishing at recent visits. Addendum entered and electronically signed by ALISON Lyons 12/16/17 15:44: Code Visit Addendum: MRI with possible early subacute infarct and possible mets. Pt has a hx of brain bleed while on xarelto 4 years ago. He was told he should not take aspirin for bleed risk as well. He used to see an oncologist in [place] for NHL - states he never had mets and that it went into spontaneous remission. He cannot remember his oncologist, it was not Dr. Mckeon. Pt also was choking on his lunch in front of me states went down the wrong tube - speech therapy eval. Original Note: <Kishore Rodríguez - Last Filed: 12/16/17 16:09> Subjective: Pt desires placement. States he was walking into his house and collapsed suddenly. He denies LOC. He denies focal weakness, dizziness, LH, numbness, tingling, blurry vision. NO CP today and no SOB or pleurisy. - Physical Exam General: Alert, Oriented x3, Cooperative HEENT: Atraumatic, PERRLA, EOMI, Normocephalic Neck: Supple, No JVD, Negative Carotid Bruits Lungs: Clear to auscultation, Normal air movement Cardiovascular: Regular rate, No murmurs Abdomen: Bowel Sounds Present, Soft, Non Tender Extremities: No edema, Capillary Refill Less than 3 Seconds Skin: No rashes, No breakdown Musculoskeletal: No Tenderness to Palpation of Joints or Extremities Neurological: Cranial nerves II-XII grossly intact Psych/Mental Status: Normal Affect, Appropriate, Alert and oriented to time, place, person, mood and affect Vital Signs Temp Pulse Resp BP Pulse Ox 97.8 F 52 L 18 130/64 H 94 06/28/18 08:02 12/16/17 08:08 12/16/17 08:02 12/16/17 08:02 12/16/17 08:02 Oxygen Delivery Method Room Air Weight: 142.4 kg Body Mass Index (BMI) 43.7 Intake and Output for Last 24 Hours 12/14/17 12/15/17 12/16/17 23:59 23:59 23:59 Intake Total 480 / 480 Balance 480 / 480 Laboratory Tests Past 24 Hrs 12/15/17 16:30 Urine Color Yellow Urine Clarity Sl. Cloudy Urine pH 6.0 Ur Specific [place] 1.015 Urine Protein Negative Urine Glucose (UA) Normal Urine Ketones Negative Urine Occult Blood Negative Urine Nitrite Negative Urine Bilirubin Negative Urine Urobilinogen Normal Ur Leukocyte Esterase 100 H Urine RBC 0 SEEN Urine WBC 0-5 SEEN Ur Squamous Epith Cells 0-5 SEEN Urine Bacteria 0 SEEN Urine Mucus 0 SEEN POC Glucose 12/16/17 12/15/17 12/15/17 06:51 22:10 17:48 POC Glucose 119 H 167 H 93 Medical Necessity - Tobacco Use Smoking Status: Former smoker Assessment/Plan All Active Problems Sepsis (Acute) Acute on chronic renal failure (Acute) Hyponatremia (Acute) Febrile neutropenia (Acute) 1. Recurrent falls - ct brain with possible remote infarct. He will have an MRI to better evaluate. Continue PTOT. Rib XR without evidence of fracture. UA neg. Trop neg. If prior CVA: should restart statin and consider aspirin ? hx brain bleed from xarelto in chart. 2. CKD III - does not appear significantly above baseline. 3. DMt2 - continue current therapy 4. Hx NHL - in remission 5. Morbid obesity - dietary consult. 6. Hx DVT - not on OAC. ppx ordered. DVT ppx: heparin DC planning: pt now stating he wants to go home. This patient was seen by Kishore Rodríguez PA-C under the supervision of Doctor Alyce. <Rosario Mead E - Last Filed: 12/17/17 08:00> - Physical Exam Vital Signs Temp Pulse Resp BP Pulse Ox 98.1 F 59 L 18 151/75 H 98 12/16/17 14:02 12/16/17 15:14 12/16/17 14:02 12/16/17 14:12/16/17 14:02 Assessment/Plan Hospitalist note: I am seeing this patient in conjunction with Kishore Rodríguez. I independently seen and examined the patient. Progress note above, laboratory data and imaging studies reviewed and I agree with above treatment plan. Patient was admitted because of frequent falls, had a fall before the day of admission in his left side. He complained of left lateral rib pain. He denied chest pain shortness of breath. Denied headache, blurred vision or slurred speech. His vital signs are stable. - Physical Exam General: Alert, Oriented x3, Cooperative, No apparent distress. HEENT: Atraumatic, PERRLA, EOMI. Neck: Supple, No JVD, Negative Carotid Bruits, Trachea Midline, Thyroid Normal. Lungs: Clear to auscultation, Normal air movement, No rhonchi, No wheeze, No rales. Cardiovascular: Regular rate, Regular Rhythm, Normal S1, Normal S2, PMI Normal. Abdomen: Bowel Sounds Present, Soft, Non Tender, Non-Distended, No Hepato- splenomegaly. Extremities: No clubbing, No cyanosis, No edema Skin: No rashes, No breakdown Neurological: Neuro grossly intact Vital Signs are stable. Assessment and plan: #1 recurrent falls/left lateral rib pain: CT scan brain with possible old infarct. X-ray of the ribs showed no acute fractures, official report is pending. Urine analysis revealed no evidence of acute cystitis. MRI brain revealed suspicious metastatic right frontal lobe lesion as well as a likely subacute infarct of the right cerebrum. Patient had a history of cerebral bleed while on Xarelto back in 2014. He had another episode of cerebral bleed while on Lovenox 07/10/2016 for DVT. Plan for PT OT evaluation and treatment. #2 abnormal MRI: It showed questionable metastatic right frontal lesion as well as subacute infarct of the right cerebrum. He has no focal deficit. Oncology consulted, recommended MRI of the brain with contrast. Neurology consulted for probable stroke, 2D echocardiogram and bilateral carotid Doppler ordered. #3 other chronic medical problems: Stable, continue current medications as above. This note was generated with [employer] software. It may contain incorrect words, spelling, and punctuation that were not noted in checking the note before signing. Code Visit Inpatient E&M: 86974 [facility] Hosp L3
--- NOTE | 2017-12-16 14:05 | CASEMGMT ---
Social Work: Met with patient in room. Introduced self and the role of the social services designee. Discussed D/C planning as patient is having frequent falls at home. Reviewed OBS status with patient and explained that Medicare requires a 3 day qualifying inpatient stay for SNF placement under Medicare benefit. Patient states that he prefers to return home at D/C. This ICT BUSINESS ANALYST discussed home therapy with patient and patient is agreeable to home health referral. Patient currently has a walker and shower chair in the home. Patient encouraged to utilize walker in the home. Spoke with Kenyetta Moser RN CM regarding patient preference to return home. Kenyetta will check with patient on home care agency preference and make referral. Will continue to follow to assist as needed with D/C planning. SHOBHA Bush
--- NOTE | 2017-12-16 17:44 | PCM.CONS.B ---
- Consult Date of Consult: 12/16/17 Patient requested to be seen by Dr. Mead for abnormal MRI scan, possible metastatic lesions in right frontal lobe and history of non-Hodgkin lymphoma in complete remission. Final recommendation will be communicated to Dr. Mead and also by electronic medical record. - Reason for Consult History of non-Hodgkin lymphoma in remission Abnormal MRI brain and history of fall The patient is a 67 year old M with past medical history of essential hypertension, obesity, dyslipidemia, type 2 diabetes and h/o non Hodgkin's lymphoma in remission who presented to the emergency room due to recurrent falls. He most recently fell last night and presents today with left-sided chest wall pain. He denied any associated shortness of breath, chest x ray done in the emergency room is unremarkable. Patient had a cerebral hemorrhage in 2014 while taking Xarelto for DVT. Patient denies a history of stroke or TIA symptoms. He has no headaches, mental status changes. Patient has no cough or shortness of breath. No change in bowel habit, abdominal pain, jaundice, or melena or weight loss. He has no fever, chills or night sweats. CT scan of the brain was unremarkable for area of low attenuation in the right frontal white matter thought to represent an remote infarct. There is no edema, midline shift or effacement. MRI scan of the brain without contrast today indicates suspicion of metastatic disease or area of hyperintensity of the medial right frontal lobe on T2 and FLAIR sequence. No specific lesion is seen. A smaller area on the right occipital lobe medially also seen. There appeared to be early subacute infarct of the right cerebrum Past Medical History Past Medical History (Chronic Problems): Chronic Problems Pancytopenia (Chronic) Non Hodgkin's lymphoma (Chronic) Hypertension (Chronic) Morbid obesity (Chronic) History of DVT (deep vein thrombosis) (Chronic) Diabetes mellitus (Chronic) Hyperlipidemia (Chronic) Allergies niacin Allergy (Verified 12/15/17 13:01) Hives piroxicam [From Feldene] Adverse Reaction (Verified 12/15/17 13:01) Upset Stomach rivaroxaban [From Xarelto] Adverse Reaction (Verified 12/15/17 13:01) BRAIN BLEED Home Medications: Ambulatory Orders Medication Instructions Recorded Ascorbic Acid [Vitamin C] 1,000 mg PO DAILY@0800 05/30/13 Atorvastatin Calcium [Lipitor] 80 mg PO DAILY 05/30/13 Paroxetine HCl [Paxil] 20 mg PO DAILY 12/04/14 Pantoprazole Sodium [Protonix] 40 mg PO DAILY 02/14/16 Multivitamins,Therapeutic 1 tablet PO DAILYCM tablet 03/12/16 [Multivitamin] Furosemide 40 mg PO DAILY 04/05/16 Amlodipine [Norvasc] 5 mg PO DAILY 07/08/17 Enoxaparin Sodium [Lovenox] 40 mg SQ QHS 07/08/17 Insulin Aspart [Novolog Flexpen] 50 units SC TIDAC 07/08/17 Insulin Glargine [Lantus (BKC)] 50 units SC BID 07/08/17 Metoprolol Tartrate [Lopressor 12.5 mg PO BID 07/08/17 (beta jacoby)] Surgical History: noncontributory Psychiatric History: No pertinent psych hx Smoking Status: Former smoker - *Family History Maternal History Items: No pertinent history Paternal History Items: No pertinent history Review of Systems Comment: All Systems were reviewed with pertinent positives mentioned in the HPI above. - Physical Exam General: Alert, Oriented x3 Neck: Supple, No JVD Lungs: Clear to auscultation, No rales Cardiovascular: Regular rate, Normal S1, Normal S2 Abdomen: Bowel Sounds Present, Soft, Non Tender, Non-Distended Extremities: No edema Neurological: Cranial nerves II-XII grossly intact, Motor Exam 5/5 strength throughout Psych/Mental Status: Normal Affect no mental status changes MMS 29 Vital Signs Temp Pulse Resp BP Pulse Ox 94 F L 58 L 18 139/69 H 96 12/15/17 16:13 12/15/17 16:13 12/15/17 16:13 12/15/17 16:13 12/15/17 15:57 Oxygen Delivery Method Room Air Weight: 142 kg Body Mass Index (BMI) 43.7 Finger Stick Blood Glucose 191 Laboratory Tests Past 24 Hrs 12/15/17 12/15/17 12/15/17 14:19 14:19 16:30 WBC 10.6 RBC 5.26 Hgb 14.5 Hct 43.9 MCV 83.5 MCH 27.6 MCHC 33.0 RDW 15.1 H RDW Differential 45.8 H Plt Count 185 MPV 11.6 Immature Gran % (Auto) 0.300 Neut % (Auto) 82.0 H Lymph % (Auto) 7.6 L [place] % (Auto) 9.2 Eos % (Auto) 0.8 Baso % (Auto) 0.1 Absolute Neuts (auto) 8.7 H Absolute Lymphs (auto) 0.81 L Total Counted Not Reportable Sodium 138 Potassium 4.2 Chloride 104 Carbon Dioxide 28.0 Anion Gap 6 BUN 18 Creatinine 1.57 H Estim Creat Clear Calc 47.96 Est GFR (MDRD) Af Amer 57 L Est GFR (MDRD) Non-Af 47 L BUN/Creatinine Ratio 11.5 Glucose 139 H Calcium 8.2 L Troponin I < 0.015 Urine Color Pending Urine Clarity Pending Urine pH Pending Ur Specific [place] Pending Urine Protein Pending Urine Glucose (UA) Pending Urine Ketones Pending Urine Occult Blood Pending Urine Nitrite Pending Urine Bilirubin Pending Urine Urobilinogen Pending Ur Leukocyte Esterase Pending Urine RBC Pending Urine WBC Pending Ur Squamous Epith Cells Pending Urine Bacteria Pending Urine Mucus Pending Assessment/Plan All Active Problems 1. Abnormal MRI scan of the brain still be consistent with either a remote infarct or bleed, metastatic disease involving the right frontal lobe or primary brain tumor is still a possibility, although subacute infarct is more likely. The Patient remained neurologically stable with no mental status changes. 2. History of non-Hodgkin's lymphoma; he is in remission by history, he last saw Dr. Pal at 3 years ago. PLAN: -I recommend a contrast enhanced MRI sequence and of the brain after appropriate hydration overnight. -Consult neurology for further evaluation -If his MRI scan the brain is suggestive of a primary tumor in the right frontal lobe; then neuro surgery evaluation for biopsy is also appropriate once patient is stabilized. -Further recommendations depending on the results of his MRI scan tomorrow. cc: Dr. Heriberto Mccoy; Dr. Jorge Dao, Dr. Rosario Mead Code Visit Office Visits / Consults: [id number] IP Consult L4
[2017-12-16] MEDS: 0.9% Normal Saline 1,000 ML 100 ML IV (18:12)
[2017-12-16 22:45] LABS: Bedside Glucose 212 mg/dL (70-110)
[2017-12-17] VITALS (13 sets, daily range): BP systolic 121–147; BP diastolic 64–83; PULSE 51–62; RESP 16–18; TEMP 36.4–37; O2SAT 92–96; BMI 43.7
[2017-12-17] MEDS: 0.9% Normal Saline 1,000 ML 100 ML IV ×2 (04:12→14:34)
[2017-12-17] MEDS: 0.9% NaCl VAD Flush 10 ML IV ×2 (04:48)
[2017-12-17 05:24] LABS: Anion Gap 6 (5-15); BUN 17 mg/dL (7-18); BUN/Creat Ratio 12.7 RATIO (10-20); Calcium,Total 7.8 mg/dL (8.5-10.1); Chloride 106 mmol/L (98-107); Creatinine, Serum 1.34 mg/dL (0.70-1.30); EST Glomerular Filtration Rate 56 mL/min (>60); Est Glom Filt Rate - Afr Amer 68 mL/min (>60); Estimated Creatinine Clearance 56.19 ml/min; Glucose 156 mg/dL (74-106); Potassium 4.4 mmol/L (3.5-5.1); Sodium Level 139 mmol/L (136-145)
--- NOTE | 2017-12-17 07:50 | MRI_ITS ---
STUDY: MRI BRAIN WITH CONTRAST REASON FOR EXAM: Male, 67 years old. Concern for brain mets. TECHNIQUE: Standardized multiplanar fat and water weighted pulse sequences were obtained. 14 ml of Gadavist contrast material was administered intravenously for the contrast portion of the examination. COMPARISON: 12/16/2017 FINDINGS: Post contrast examination is performed to follow-up a noncontrast examination performed the day before. At the area of the vasogenic edema, there are multiple irregularly shaped enhancing lesions. The most prominent lesions are as follows: 1.2 cm left anterior frontal 2. 0.3 cm right anterior frontal adjacent to the frontal horn 4 mm right coronal radiata. 2 cm left caudate. 1 cm right occipital adjacent to the occipital horn MRI/Brain WITH Contrast IMPRESSION: Multiple enhancing lesions, consistent with intracranial lymphoma. N.B. : The above information has been verbally conveyed by Bennie Ricardo MD to , Covering Physician, on 12/17/2017 11:13:53 (ET). Electronically Signed: Bennie Ricardo MD at 9:56 EDT Tel , Service support , N.B. : The above information has been verbally conveyed by Bennie Ricardo MD to , Covering Physician, on 12/17/2017 11:13:53 (ET).
--- NOTE | 2017-12-17 08:00 | ECHOCS_ITS ---
Reason For Study: TIA/CVA Procedure This was a 2D Doppler, Color Flow transthoracic echocardiogram. Study quality was technically difficult due to patient body habitus. The patient was unable to lay on his left side due to broken left ribs. All images were taken with the patient supine. Contrast injection was performed. Exam performed portable in patient room. Left Ventricle Normal LV size. The estimated ejection fraction is 60 %. Transmitral diastolic flow velocities suggest mild (stage 1) diastolic dysfunction (reversed pattern). No regional wall motion abnormalities noted. Right Ventricle Normal RV size. Normal systolic function. Atria Normal left atrium. Normal right atrium. Mitral Valve Normal mitral valve. Tricuspid Valve Normal tricuspid valve. Aortic Valve Trisinus/trileaflet aortic valve. Planimetered aortic valve area 1.6 cm2. Pulmonic Valve The pulmonic valve is not well visualized. Great Vessels Mildly dilated aortic root. The pulmonary artery is normal size. Normal inferior vena cava. Pericardium/Pleural No pericardial effusion. Medication Diluted definity 2ml given slow IV push to enhance endocardial definition. Performed a rapid injection of agitated mix of 9 cc saline and 1cc air to assess for atrial septal defect. MMode/2D Measurements & Calculations LVIDd: 4.9 cm IVSd: 1.1 cm LVOT diam: 2.0 cm LVIDs: 3.4 cm LVPWd: 1.3 cm LVOT area: 3.1 cm2 FS: 30.2 % Ao root diam: 4.1 cm LAV(MOD-sp2): 65.6 ml ACS: 1.3 cm Aortic Valve Planimetry: 1.6 cm2 LA dimension: 3.6 cm Time Measurements MV dec time: 0.41 sec Doppler Measurements & Calculations MV E max gerardo: 56.3 cm/sec Lat Peak E' Gerardo: 9.8 cm/sec Med Peak E' Gerardo: 6.3 cm/sec MV A max gerardo: 77.1 cm/sec E/E' lat: 5.7 E/E' med: 9.0 MV E/A: 0.73 MV V2 max: 83.8 cm/sec MV P1/2t max gerardo: 83.0 cm/sec Ao V2 max: 168.5 cm/sec MV max P.8 mmHg MV P1/2t: 79.9 msec Ao max P.4 mmHg MV V2 mean: 41.6 cm/sec MV dec slope: 304.4 cm/sec2 Ao V2 mean: 117.8 cm/sec MV mean P.85 mmHg MVA(P1/2t): 2.8 cm2 Ao mean P.2 mmHg MV V2 VTI: 31.5 cm Ao V2 VTI: 37.7 cm MVA(VTI): 1.7 cm2 WILDER(I,D): 1.4 cm2 WILDER(V,D): 1.7 cm2 LV V1 max: 93.4 cm/sec SV(LVOT): 53.8 ml PA V2 max: 79.0 cm/sec LV V1 max P.5 mmHg LV V1 mean P.4 mmHg LV V1 mean: 53.1 cm/sec LV V1 VTI: 17.1 cm Interpretation Summary Normal LV size. The estimated ejection fraction is 60 %. Transmitral diastolic flow velocities suggest mild (stage 1) diastolic dysfunction (reversed pattern). Contrast injection was performed. Compared to prior study, there is no significant change. Ordering Physician: Kishore Rodríguez Referring Physician: ALEXANDRO GALDAMEZ Performed By: Wisam Oleary RCS
--- NOTE | 2017-12-17 08:00 | CDU_ITS ---
Reason For Study: CVA Rt. Velocities/BP Lt. Velocities/BP Prox CCA 64.5/0.0 cm/sec. Prox CCA 92.6/11.1 cm/sec. Mid CCA 73.9/11.1 cm/sec. Mid CCA 75.0/9.97 cm/sec. Dist CCA 76.2/9.97 cm/sec. Dist CCA 52.6/9.04 cm/sec. Prox ICA 39.4/7.95 cm/sec. Prox ICA 50.3/11.0 cm/sec. Mid ICA 52.2/8.64 cm/sec. Mid ICA 64.4/16.1 cm/sec. Dist ICA 42.0/10.2 cm/sec. Dist ICA 79.5/12.2 cm/sec. Rt. ICA/CCA = 52.2/73.9=0.70. Lt. ICA/CCA = 79.5/75.0=1.1. Prox ECA 41.0/0.0 cm/sec. Prox ECA 78.2/0.0 cm/sec. Rt. Vert. 34.6/8.25 cm/sec. Lt. Vert. 34.0/8.33 cm/sec. Right Extracranial There is heterogeneous, smooth atherosclerotic plaque noted in the right common carotid artery. There is homogeneous, smooth atherosclerotic plaque noted in the right internal carotid artery. The distal right internal carotid artery is not well visualized. There is heterogeneous, smooth atherosclerotic plaque noted in the right external carotid artery. Antegrade flow is noted in the right vertebral artery. Left Extracranial There is homogeneous, smooth atherosclerotic plaque noted in the left common carotid artery. There is homogeneous, smooth atherosclerotic plaque noted in the left internal carotid artery. The distal left internal carotid artery is not well visualized. There is homogeneous, smooth atherosclerotic plaque noted in the left external carotid artery. The left external carotid artery is not well visualized. Antegrade flow is noted in the left vertebral artery. Procedure Carotid Duplex [id number]. The study was technically difficult. Exam performed portable in patient room. Interpretation Summary Mild (<50%) stenosis right extracranial internal carotid. Mild (<50%) stenosis left extracranial internal carotid. Flow within the vertebral arteries is antegrade bilaterally. Ordering Physician: Kishore Rodríguez Referring Physician: ALEXANDRO GALDAMEZ Performed By: Sasha Guardado, HUGO, RVT
--- NOTE | 2017-12-17 08:01 | PCM.PROGNOTE ---
Subjective: Chief complaint: Follow-up after admission for recurrent falls, physical debility, left lateral rib pain, found to have abnormal MRI with questionable metastatic lesion and subacute infarction of the right cerebrum. Patient seen and examined. No acute events overnight. He still complaining of left lateral chest pain at the site of the fall. He mentioned that his legs are still weak bilaterally with no focal deficit. Denied any other symptoms. I explained to the patient that his MRI showed that he may have metastatic lesion versus primary brain tumor as well as stroke and we need to do an MRI with contrast. I informed the patient that he does have stage III chronic kidney disease and giving him IV contrast might worsen his kidney function. He agreed to proceed with MRI with IV contrast. His vital signs are stable. - Physical Exam General: Alert, Oriented x3, Cooperative, No apparent distress HEENT: Atraumatic, PERRLA, EOMI, Normocephalic Oral: Moist Mucosa, No Gingival or Mucosal Lesions/ Ulcerations Neck: Supple, No JVD, Negative Carotid Bruits, Trachea Midline, Thyroid Normal Size and Texture Lungs: Clear to auscultation, No rhonchi, No wheeze, No rales, Diminished Cardiovascular: Regular rate, Regular Rhythm, Normal S1, Normal S2, No murmurs Abdomen: Bowel Sounds Present, Soft, Non Tender, Non-Distended, No Hepato-splenomegaly Extremities: No clubbing, No cyanosis, No edema Skin: No rashes, No breakdown Lymphatic: No Cervical, Supraclavicular, or Inguinal Adenopathy Neurological: Cranial nerves II-XII grossly intact, Motor Exam 5/5 strength throughout Psych/Mental Status: Normal Affect, Appropriate, Alert and oriented to time, place, person, mood and affect Vital Signs Temp Pulse Resp BP Pulse Ox 97.5 F L 52 L 18 125/67 H 94 12/17/17 04:06 12/17/17 07:00 12/17/17 04:06 12/17/17 04:06 12/17/17 04:06 Oxygen Delivery Method Room Air Body Mass Index (BMI) 43.7 Intake and Output for Last 24 Hours 12/15/17 12/16/17 12/17/17 23:59 23:59 23:59 Intake Total 480 / 960 1358 / 1358 Balance 480 / 960 1358 / 1358 Laboratory Tests Past 24 Hrs 12/17/17 04:45 Sodium 139 Potassium 4.4 Chloride 106 Carbon Dioxide 27.0 Anion Gap 6 BUN 17 Creatinine 1.34 H Estim Creat Clear Calc 56.19 Est GFR (MDRD) Af Amer 68 Est GFR (MDRD) Non-Af 56 L BUN/Creatinine Ratio 12.7 Glucose 156 H Calcium 7.8 L POC Glucose 12/16/17 21:31 POC Glucose 212 H Medical Necessity - Tobacco Use Smoking Status: Never smoker Assessment/Plan All Active Problems Sepsis (Acute) Acute on chronic renal failure (Acute) Hyponatremia (Acute) Febrile neutropenia (Acute) This is a 67 years old male patient presented to the emergency room because of recurrent falls and generalized weakness and initially was admitted for PT OT as well as placement to intermediate facility. CT scan brain done and revealed probable acute infarct which MRI brain done and revealed questionable metastatic disease. #1 recurrent falls/functional decline/left lateral chest and rib pain: Patient complains of bilateral leg weakness and knee pain, no focal weakness. CT scan brain revealed questionable remote infarction in the right frontal lobe. Chest/rib x-ray done and no obvious rib fractures on the left side, official report is pending. Routine blood work was remarkable for chronically elevated creatinine, otherwise normal. His vital signs are stable. Plan for PT OT evaluation and treatment, awaiting official report of the chest/rib x-ray. #2 abnormal MRI: Because the CT scan showed questionable remote infarction, MRI brain without contrast done and revealed suspicious metastatic disease in the medial right frontal lobe as well as probable subacute infarction of the right cerebrum involving centrum semi-ovale, tomas radiata and basal ganglia. 2D echocardiogram and carotid Doppler ordered for evaluation of possible stroke. Patient has no focal deficit on physical examination. He does have history of non-Hodgkin's lymphoma as well as testicular cancer. Oncology consulted and recommended MRI brain with contrast which was done today and revealed metastatic disease according to available report from the radiologist Dr. Ricardo, awaiting official report. Plan to discuss with oncology about the future plan. #3 stage III chronic kidney disease: Baseline creatinine has been around 1.4-2 mg/dL. Admission creatinine is 1.57 mg/dL. Patient is on IV fluids, creatinine came down to 1.3 for fluid. Patient received IV contrast of the. He was informed that this IV contrast may worsen his kidney function and he agreed to proceed. Plan to continue IV fluids, Mucomyst twice daily, repeat BMP tomorrow morning. #4 history of DVT: With history of recurrent cerebral bleed while on Xarelto and Lovenox. Plan for no anticoagulation. SCDs for DVT prophylaxis. #5 history of non-Hodgkin's lymphoma: According to the patient, it has been in remission, last chemotherapy was more than 1-1/2 years ago. 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 Will discuss with oncology. #6 history of left testicular cancer: Status post left orchiectomy long time ago. #7 hypertension: Blood pressure stable, continue Norvasc and metoprolol. #8 type 2 diabetes mellitus: ADA diet, Accu-Cheks, insulin sliding scale, continue Lantus insulin as well as sliding scale. #9 DVT prophylaxis: SCDs. This note was generated with [employer] dictation software. It may contain incorrect words, spelling, and punctuation that were not noted in checking the note before signing. Code Visit Inpatient E&M: 39057 Subs Hosp L3
[2017-12-17] MEDS: Multivitamins,Therapeutic Tablet 1 TABLET PO (09:37)
[2017-12-17] MEDS: Ascorbic Acid 500 MG Tablet 1000 MG PO (09:37)
[2017-12-17] MEDS: amLODIPine 5 MG Tablet PO (09:38)
[2017-12-17] MEDS: Metoprolol(XL)Succ 25 MG Tablet 12.5 MG PO ×2 (09:38→21:53)
[2017-12-17] MEDS: Pantoprazole Sodium 40 MG Tablet PO (09:38)
[2017-12-17] MEDS: Glucerna Shake 120 ML LIQUID PO ×2 (09:43→12:32)
--- NOTE | 2017-12-17 09:57 | CON.PCM_ITS ---
Reason for Consult Date of Consultation: 12/17/17 Reason for Consultation: possible brain mets History of Present Illness: The patient is a 67 year old male with the below noted history. 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 pt feels normal now, remote history of tob. per admit h&p:The patient is a 67 year old M with past medical history of essential hypertension, obesity, dyslipidemia, type 2 diabetes and non Hodgkin' s lymphoma who presented to the emergency room due to recurrent falls. He most recently fell last night and presents today with left-sided chest wall pain. He denied any associated shortness of breath, chest x ray done in the emergency room is unremarkable. Due to his recurrent falls his family is concerned that they may not be able take care of him at home and he will like to go to a penitentiary facility for rehab. Past Medical History Past Medical History (Chronic Problems): Chronic Problems Pancytopenia (Chronic) Non Hodgkin's lymphoma (Chronic) Hypertension (Chronic) Morbid obesity (Chronic) History of DVT (deep vein thrombosis) (Chronic) Diabetes mellitus (Chronic) Hyperlipidemia (Chronic) Allergies niacin Allergy (Verified 12/15/17 13:01) Hives piroxicam [From Feldene] Adverse Reaction (Verified 12/15/17 13:01) Upset Stomach rivaroxaban [From Xarelto] Adverse Reaction (Verified 12/15/17 13:01) BRAIN BLEED Home Medications: Ambulatory Orders Medication Instructions Recorded Ascorbic Acid [Vitamin C] 1,000 mg PO DAILY@0800 05/30/13 Atorvastatin Calcium [Lipitor] 80 mg PO DAILY 05/30/13 Paroxetine HCl [Paxil] 20 mg PO DAILY 12/04/14 Multivitamins,Therapeutic 1 tablet PO DAILYCM tablet 03/12/16 [Multivitamin] Amlodipine [Norvasc] 5 mg PO DAILY 07/08/17 Enoxaparin Sodium [Lovenox] 40 mg SQ DAILY 07/08/17 Insulin Glargine [Lantus (BKC)] 50 units SC DAILY 07/08/17 Insulin Glargine/Lixisenatide 50 unit SQ QHS 12/15/17 [Soliqua 100 Unit-33 Mcg/ml Pen] Metoprolol(XL)Succ [Toprol Xl 12.5 mg PO BID 12/15/17 (Beta Mandeep)] Pantoprazole Sodium [Pantoprazole 40 mg PO DAILY 12/15/17 Sodium] Testosterone Cypionate 1 ml IM Q14D 12/15/17 [Testosterone Cypionate] traMADol [Ultram] 50 mg PO BID 12/15/17 Furosemide [Lasix] 40 mg PO DAILY 12/16/17 Magnesium Oxide [Mag-Ox 400] 1,200 mg PO DAILY 12/16/17 Surgical History: noncontributory Psychiatric History: No pertinent psych hx Smoking Status: Never smoker - *Family History Maternal History Items: No pertinent history Paternal History Items: No pertinent history Review of Systems Constitutional: Denies: Chills, Fever, Weight Change HEENT: Denies: Head Aches, Sinus Congestion, Sinus Drainage Cardiovascular: Denies: Chest Pain, Palpitations Respiratory: Denies: Cough, Shortness of breath at rest, Sputum production Gastrointestinal: Denies: Abdominal Pain, Nausea, Vomiting Genitourinary: Denies: Dysuria Musculoskeletal: Denies: Joint Pain, Joint Tenderness Skin: Denies: Rash, Wounds Neurological: Denies: Numbness, Tingling, Focal weakness Psychiatric: Denies: Anxiety, Depression, Homicidal Ideations, Suicidal Ideations Hematologic/ Lymphatic: Denies: Easy Bruising, Easy Bleeding - Physical Exam General: Alert, Oriented x3, Cooperative, No apparent distress Neurological: Cranial nerves II-XII grossly intact, Deep Tendon Reflexes 2+/4 and Symmetrical, Neuro grossly intact, Motor Exam 5/5 strength throughout Psych/Mental Status: Flat Affect Vital Signs Temp Pulse Resp BP Pulse Ox 36.4 C L 59 L 18 125/67 H 94 12/17/17 04:06 12/17/17 09:38 12/17/17 04:06 12/17/17 04:06 12/17/17 04:06 Oxygen Delivery Method Room Air Body Mass Index (BMI) 43.7 Intake and Output for Last 24 Hours 12/15/17 12/16/17 12/17/17 23:59 23:59 23:59 Intake Total 480 / 960 1358 / 1358 Balance 480 / 960 1358 / 1358 Laboratory Tests Past 24 Hrs 12/17/17 04:45 Sodium 139 Potassium 4.4 Chloride 106 Carbon Dioxide 27.0 Anion Gap 6 BUN 17 Creatinine 1.34 H Estim Creat Clear Calc 56.19 Est GFR (MDRD) Af Amer 68 Est GFR (MDRD) Non-Af 56 L BUN/Creatinine Ratio 12.7 Glucose 156 H Calcium 7.8 L POC Glucose 12/16/17 21:31 POC Glucose 212 H Current Home Med List Medication Instructions Recorded Confirmed Type Ascorbic Acid [Vitamin C] 1,000 mg PO DAILY@0800 05/30/13 12/15/17 History Atorvastatin Calcium [Lipitor] 80 mg PO DAILY 05/30/13 12/15/17 History Paroxetine HCl [Paxil] 20 mg PO DAILY 12/04/14 12/15/17 History Multivitamins,Therapeutic 1 tablet PO DAILYCM tablet 03/12/16 12/15/17 Rx [Multivitamin] Amlodipine [Norvasc] 5 mg PO DAILY 07/08/17 12/15/17 History Enoxaparin Sodium [Lovenox] 40 mg SQ DAILY 07/08/17 12/15/17 History Insulin Glargine [Lantus (BKC)] 50 units SC DAILY 07/08/17 12/15/17 History Insulin Glargine/Lixisenatide 50 unit SQ QHS 12/15/17 12/15/17 History [Soliqua 100 Unit-33 Mcg/ml Pen] Metoprolol(XL)Succ [Toprol Xl 12.5 mg PO BID 12/15/17 12/15/17 History (Beta Mandeep)] Pantoprazole Sodium [Pantoprazole 40 mg PO DAILY 12/15/17 12/15/17 History Sodium] Testosterone Cypionate 1 ml IM Q14D 12/15/17 12/15/17 History [Testosterone Cypionate] traMADol [Ultram] 50 mg PO BID 12/15/17 12/15/17 History Furosemide [Lasix] 40 mg PO DAILY 12/16/17 12/16/17 History Magnesium Oxide [Mag-Ox 400] 1,200 mg PO DAILY 12/16/17 12/16/17 History Current Medications Generic Name Dose Route Start Last Admin Trade Name Freq PRN Reason Stop Dose Admin Acetylcysteine 1,200 mg 12/17/17 10:00 Mucomyst PO 12/18/17 10:01 BID ALFA Amlodipine Besylate 5 mg 12/16/17 10:00 12/17/17 09:38 Norvasc PO 5 mg DAILY ALFA Administration Ascorbic Acid 1,000 mg 12/16/17 08:00 12/17/17 09:37 Vitamin C PO 1,000 mg DAILY@0800 ALFA Administration Heparin Sodium (Beef Lung) 500 unit 12/15/17 16:59 Heparin 500 Unit/5 Ml (100/Ml) IV UD PRN HEPARIN FLUSH Sodium Chloride 250 mls @ 15 mls/hr 12/15/17 17:00 IV .[id number] PRN SALINE FLUSH Sodium Chloride 1,000 mls @ 100 mls/hr 12/16/17 17:45 12/17/17 04:12 IV 100 mls/hr .Q10H ALFA Administration Insulin Glargine 50 units 12/15/17 22:00 12/16/17 21:39 Lantus (Bkc) SC 50 u QHS ALFA Administration Magnesium Hydroxide 30 ml 12/15/17 16:21 Milk Of Magnesia PO DAILY PRN PRN Constipation Metoprolol Succinate 12.5 mg 12/15/17 22:00 12/17/17 09:38 Toprol Xl (Beta Mandeep) PO 12.5 mg BID ALFA Administration Multivitamins 1 tablet 12/16/17 08:00 12/17/17 09:37 Multivitamin PO 1 tablet DAILYCM ALFA Administration Nutritional Formula (Lactose Free) 120 ml 12/16/17 08:00 12/17/17 09:43 Glucerna Shake PO 120 ml TIDCM ALFA Administration Pantoprazole Sodium 40 mg 12/16/17 10:00 12/17/17 09:38 Protonix PO 40 mg DAILY ALFA Administration Paroxetine HCl 20 mg 12/16/17 10:00 12/17/17 09:38 Paxil PO 20 mg DAILY ALFA Administration Sodium Chloride 10 ml 12/15/17 16:59 12/17/17 04:48 IV 10 ml UD PRN Administration VAD FLUSH Tramadol HCl 50 mg 12/15/17 18:46 12/16/17 21:43 Ultram PO 50 mg BID PRN PRN Administration MODERATE PAIN (4-5/10) mri and ct reviewed, appears to have at least 4 lesions consistent with mets, bilateral frontal, left basal ganglia, and right occipital. the right frontal lesion is edematous consistent with mass lesion. there are punctate right subcortical white matter infarcts, acute/subacute Assessment/Plan 1. brain mets: if no obvious source recommend referral to neurosurgery for biopsy 2. stroke: this is likely a hypercoaguable state due to malignancy. the stroke is very small and otherwise not clinically significant
[2017-12-17] MEDS: Acetylcysteine (Mucomyst Oral) 20% SOLN 1200 MG PO ×2 (10:00→21:54)
--- NOTE | 2017-12-17 11:00 | CASEMGMT ---
JOELLE spoke with patient again regarding placement since he is an inpatient now. He said he wants to go home. SW asked him how his feels and he said she told him whatever he wants. SW will check back if patient's comes in. Susan CISNEROS MSW
[2017-12-17 11:36] LABS: Bedside Glucose 236 mg/dL (70-110)
[2017-12-17] MEDS: Insulin Lispro 100 UNIT/ML INSULN.PEN SC ×3 (12:33→21:55)
--- NOTE | 2017-12-17 13:09 | CT_ITS ---
STUDY: CT CHEST WITHOUT CONTRAST REASON FOR EXAM: Male, 67 years old. The patient has a history of bladder cerebral metastasis. RADIATION DOSAGE (If Supplied By Facility): CTDIvol = ( 27.25 ) mGy, DLP = ( 945.76 ) mGycm TECHNIQUE: Transaxial imaging was performed without the administration of intravenous contrast material. Multiplanar coronal and sagittal images were reformatted. Individualized dose optimization techniques were used for this CT. COMPARISON: None. FINDINGS: A left-sided portacatheter is seen. Mild degree of increased markings at the left lung base suggestive of left basilar atelectasis. There is no demonstrated pleural abnormality. There are calcifications of the coronary arteries. There are multiple small lymph nodes within the mediastinum, which are normal in size and morphology most compatible with reactive lymph hyperplasia. Normal hilar regions. Normal unenhanced pulmonary arteries. Normal aorta arch and descending thoracic aorta. Prior vertebroplasty of the T12 vertebrae without loss of height of the T12 vertebrae. There is no demonstrated abnormality of the visualized upper abdomen. CT/Chest without Contrast IMPRESSION: Mild increased markings at the left lung base suggestive of atelectasis. Electronically Signed: Rayo Fowler MD at 15:13 EDT Tel [phone], Service support ,
--- NOTE | 2017-12-17 13:09 | CT_ITS ---
STUDY: CT ABDOMEN AND PELVIS WITHOUT CONTRAST REASON FOR EXAM: Male, 67 years old. History of brain metastasis. RADIATION DOSAGE (If Supplied By Facility): CTDIvol = ( 27.60 ) mGy, DLP = ( 1659.85 ) mGycm TECHNIQUE: Transaxial images were obtained from the dome of the diaphragm to the symphysis pubis without oral contrast, and without intravenous contrast. Sagittal and coronal images were reconstructed. Individualized dose optimization techniques were used for this CT. COMPARISON: Comparison is made with prior examination dated May 06, 2017. FINDINGS: Mild degree of increased markings at the left lung base suggestive of atelectasis. Coronary artery calcification. Normal liver. The gallbladder is contracted. Normal spleen. Normal pancreas. Normal bilateral adrenal glands. Normal right kidney. Normal left kidney. Mild degree of nonspecific bilateral perinephric stranding. Normal visualized stomach. Normal small intestine. Normal colon. The appendix is visualized and appears normal. There is scattered atherosclerotic calcification of the abdominal aorta, without a demonstrated aneurysm. Normal inferior vena cava. Normal retroperitoneum. Normal urinary bladder. There is a small umbilical hernia containing fat. Loss of height of the T12 vertebrae with evidence of a vertebroplasty. Degenerative changes. CT/Abdomen/Pelvis without Cont IMPRESSION: Findings suggestive mild left basilar atelectasis. No acute abnormality is seen. Electronically Signed: Rayo Fowler MD at 15:11 EDT Tel [phone], Service support ,
--- NOTE | 2017-12-17 13:10 | PCM.PN.BLA ---
Progress Note I called and I informed him that brain MRI with contrast revealed multiple metastatic lesions and this could be metastasis versus primary brain tumor. He recommended to discuss the case with the patient's primary oncologist Dr. Pal at [facility] and also recommended CT scan chest, abdomen and pelvis without contrast. I spoke with Dr. 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 He mentioned that it is likely that this type of lymphoma can spread to brain. I spoke with Dr. Mccoy after that and he recommended to do CT scan chest, abdomen and pelvis without contrast looking for primary and if those CAT scans came back unremarkable, patient may have primary brain tumor and in that case, he needs to be evaluated by neurosurgery. CT scan chest, abdomen and pelvis ordered.
--- NOTE | 2017-12-17 13:13 | PN_ITS ---
Progress Note I called and I informed him that brain MRI with contrast revealed multiple metastatic lesions and this could be metastasis versus primary brain tumor. He recommended to discuss the case with the patient's primary oncologist Dr. Pal at [facility] and also recommended CT scan chest, abdomen and pelvis without contrast. I spoke with Dr. 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 He mentioned that it is likely that this type of lymphoma can spread to brain. I spoke with Dr. Mccoy after that and he recommended to do CT scan chest, abdomen and pelvis without contrast looking for primary and if those CAT scans came back unremarkable, patient may have primary brain tumor and in that case, he needs to be evaluated by neurosurgery. CT scan chest, abdomen and pelvis ordered.
--- NOTE | 2017-12-17 16:01 | PCM.PN.BLA ---
Progress Note Hematology oncology progress note: Patient has history of diffuse large B-cell lymphoma ( limited to his abdomen & pelvis ) treated with chemotherapy & radiation therapy I reviewed MRI with the patient today. Multiple lesions in the brain consistent with either metastatic disease or ROCKET ASSEMBLY OPERATOR lymphoma. Patient has mild headache but neurologically stable. CT chest abdomen and pelvis without contrast showed no adenopathy or primary cancer. IMPRESSION: 1. Multiple brain lesions suggestive of either ROCKET ASSEMBLY OPERATOR lymphoma or metastatic carcinoma Plan: -Consider starting dexamethasone 2-4mg twice daily -Transfer to [place]; either or [facility] for neurosurgery evaluation and biopsy 2. Acute stroke: Likely hypercoagulable state due to malignancy Plan: -Continue Lovenox subcu injection now -Follow neurological status. cc: Dr. Jorge Dao, Dr. Heriberto Mccoy; Dr. Noel Squires; Dr. Rosario Mead
--- NOTE | 2017-12-17 16:10 | PN_ITS ---
Progress Note Hematology oncology progress note: Patient has history of diffuse large B-cell lymphoma ( limited to his abdomen & pelvis ) treated with chemotherapy & radiation therapy I reviewed MRI with the patient today. Multiple lesions in the brain consistent with either metastatic disease or WIRELESS MANAGER lymphoma. Patient has mild headache but neurologically stable. CT chest abdomen and pelvis without contrast showed no adenopathy or primary cancer. IMPRESSION: 1. Multiple brain lesions suggestive of either WIRELESS MANAGER lymphoma or metastatic carcinoma Plan: -Consider starting dexamethasone 2-4mg twice daily -Transfer to [place]; either or [facility] for neurosurgery evaluation and biopsy 2. Acute stroke: Likely hypercoagulable state due to malignancy Plan: -Continue Lovenox subcu injection now -Follow neurological status. cc: Dr. Jorge Dao, Dr. Heriberto Mccoy; Dr. Noel Squires; Dr. Rosario Mead
[2017-12-17 16:45] LABS: Bedside Glucose 248 mg/dL (70-110)
[2017-12-17] MEDS: traMADol 50 MG Tablet PO (19:30)
[2017-12-17 22:35] LABS: Bedside Glucose 248 mg/dL (70-110)
[2017-12-18] VITALS (14 sets, daily range): BP systolic 114–151; BP diastolic 65–78; PULSE 51–62; RESP 16–18; TEMP 36.5–36.9; O2SAT 93–98; BMI 43.7
[2017-12-18] MEDS: 0.9% Normal Saline 1,000 ML 100 ML IV ×2 (00:18→09:56)
[2017-12-18] MEDS: 0.9% NaCl VAD Flush 10 ML IV ×2 (04:42→04:43)
[2017-12-18 04:47] LABS: Absolute Lymphocyte Count 0.94 X10^3/ul (0.83-4.51); Absolute Neutrophil Count 6.4 X10^3/uL (2.0-7.7); Basophil# 0.02 X10^3/uL; Basophil% 0.2 % (0-1); Eosinophil# 0.34 X10^3/uL; Hematocrit 42.4 % (40-54); Lymphocyte # 0.94 X10^3/ul (4.0); Lymphocyte % 11.1 % (19-41); Mean Corpuscular Hgb 27.7 pg (27.0-32.0); Mean Corpuscular Volume 83.8 fL (80-94); Monocyte# 0.72 X10^3/uL; Monocyte% 8.5 % (0-10); Neutrophil # 6.44 X10^3/uL (2.7-7.7); Neutrophil % 75.8 % (47-70); POSITIVE COUNT NO; POSITIVE DIFFERENTIAL NO; POSITIVE MORPHOLOGY NO; Platelet Count 190 K/mm3 (150-450); RBC Distribution Width SD 45.1 fl (35.1-43.9); Red Blood Count 5.06 M/mm3 (4.6-6.2); White Blood Count 8.5 K/mm3 (4.4-11.0)
[2017-12-18 05:11] LABS: Anion Gap 7 (5-15); BUN 17 mg/dL (7-18); BUN/Creat Ratio 12.4 RATIO (10-20); Chloride 104 mmol/L (98-107); Creatinine, Serum 1.37 mg/dL (0.70-1.30); EST Glomerular Filtration Rate 55 mL/min (>60); Est Glom Filt Rate - Afr Amer 66 mL/min (>60); Estimated Creatinine Clearance 54.96 ml/min; Glucose 162 mg/dL (74-106); Potassium 4.2 mmol/L (3.5-5.1); Sodium Level 138 mmol/L (136-145)
[2017-12-18 07:01] LABS: Bedside Glucose 151 mg/dL (70-110)
[2017-12-18] MEDS: Multivitamins,Therapeutic Tablet 1 TABLET PO (08:40)
[2017-12-18] MEDS: Glucerna Shake 120 ML LIQUID PO ×3 (08:40→16:17)
[2017-12-18] MEDS: Insulin Lispro 100 UNIT/ML INSULN.PEN SC ×4 (08:40→22:40)
[2017-12-18] MEDS: Ascorbic Acid 500 MG Tablet 1000 MG PO (08:40)
[2017-12-18] MEDS: Pantoprazole Sodium 40 MG Tablet PO (09:11)
[2017-12-18] MEDS: Metoprolol(XL)Succ 25 MG Tablet 12.5 MG PO ×2 (09:11→22:37)
[2017-12-18] MEDS: amLODIPine 5 MG Tablet PO (09:11)
[2017-12-18] MEDS: traMADol 50 MG Tablet PO ×2 (09:11→20:19)
[2017-12-18] MEDS: Acetylcysteine (Mucomyst Oral) 20% SOLN 1200 MG PO (09:11)
--- NOTE | 2017-12-18 10:07 | PCM.PROGNOTE ---
Subjective: Chief complaint: Follow-up after admission for frequent falls, physical debility, left lateral rib pain, metastatic brain lesions and acute versus subacute right subcortical infarcts. Patient seen and examined. No acute events overnight. Still complaining of left lateral chest discomfort/pain. No other symptoms. His vital signs are stable. - Physical Exam General: Alert, Oriented x3, Cooperative, No apparent distress HEENT: Atraumatic, PERRLA, EOMI, Normocephalic Oral: Moist Mucosa, No Gingival or Mucosal Lesions/ Ulcerations Neck: Supple, No JVD, Negative Carotid Bruits, Trachea Midline, Thyroid Normal Size and Texture Lungs: Clear to auscultation, No rhonchi, No wheeze, No rales, Diminished Cardiovascular: Regular rate, Regular Rhythm, Normal S1, Normal S2, No murmurs Abdomen: Bowel Sounds Present, Soft, Non Tender, Non-Distended, No Hepato-splenomegaly Extremities: No clubbing, No cyanosis, No edema Skin: No rashes, No breakdown Lymphatic: No Cervical, Supraclavicular, or Inguinal Adenopathy Neurological: Cranial nerves II-XII grossly intact, Neuro grossly intact Psych/Mental Status: Flat Affect, Alert and oriented to time, place, person, mood and affect Vital Signs Temp Pulse Resp BP Pulse Ox 97.7 F L 60 16 150/78 H 95 12/18/17 08:38 12/18/17 09:11 12/18/17 08:38 12/18/17 08:38 12/18/17 08:38 Oxygen Delivery Method Room Air Body Mass Index (BMI) 43.7 Intake and Output for Last 24 Hours 12/16/17 12/17/17 12/18/17 23:59 23:59 23:59 Intake Total 480 / 960 2900 / 2900 2696 / 2696 Balance 480 / 960 2900 / 2900 2696 / 2696 Laboratory Tests Past 24 Hrs 12/18/17 12/18/17 04:40 04:40 WBC 8.5 RBC 5.06 Hgb 14.0 Hct 42.4 MCV 83.8 MCH 27.7 MCHC 33.0 RDW 15.0 H RDW Differential 45.1 H Plt Count 190 MPV 11.0 Immature Gran % (Auto) 0.400 Neut % (Auto) 75.8 H Lymph % (Auto) 11.1 L Wheeler % (Auto) 8.5 Eos % (Auto) 4.0 Baso % (Auto) 0.2 Absolute Neuts (auto) 6.4 Absolute Lymphs (auto) 0.94 Total Counted Not Reportable Sodium 138 Potassium 4.2 Chloride 104 Carbon Dioxide 27.0 Anion Gap 7 BUN 17 Creatinine 1.37 H Estim Creat Clear Calc 54.96 Est GFR (MDRD) Af Amer 66 Est GFR (MDRD) Non-Af 55 L BUN/Creatinine Ratio 12.4 Glucose 162 H Calcium 8.0 L POC Glucose 12/18/17 12/17/17 12/17/17 06:49 21:52 16:35 POC Glucose 151 H 248 H 248 H 12/17/17 11:27 POC Glucose 236 H Clinical Impression(s) from Imaging Studies Brain CT 12/15/17 13:37 IMPRESSION: 1. Focal area of low attenuation in the right frontal white matter thought to represent a remote infarct. This was not present on the prior exam. There is no evidence of edema midline shift or sulcal effacement to suggest acuity. Remainder of the findings are unchanged and unremarkable. Electronically Signed: Kayode Mohan DO at 15:03 EDT Tel [phone], Service support , Ribs w/Chest X-Ray 12/15/17 14:55 IMPRESSION: RIBS: Normal x-ray examination of the ribs. CHEST: No acute cardiopulmonary disease or interval change. Electronically Signed: Kayode Mohan DO at 15:11 EDT Tel [phone], Service support , Brain MRI 12/16/17 10:06 IMPRESSION: There is suspicion of metastatic disease. Contrast-enhanced MRI sequences are recommended. There appear to be early subacute infarcts of the right cerebrum. Electronically Signed: Annemarie Riggs MD at 13:53 EDT , Service support , Brain MRI 12/17/17 07:50 IMPRESSION: Multiple enhancing lesions, consistent with intracranial lymphoma. N.B. : The above information has been verbally conveyed by Bennie Ricardo MD to , Covering Physician, on 12/17/2017 11:13:53 (ET). Electronically Signed: Bennie Ricardo MD at 9:56 EDT Tel , Service support , N.B. : The above information has been verbally conveyed by Bennie Ricardo MD to , Covering Physician, on 12/17/2017 11:13:53 (ET). Abdomen/Pelvis CT 12/17/17 13:09 IMPRESSION: Findings suggestive mild left basilar atelectasis. No acute abnormality is seen. Electronically Signed: Rayo Fowler MD at 15:11 EDT Tel [phone], Service support , Chest CT 12/17/17 13:09 IMPRESSION: Mild increased markings at the left lung base suggestive of atelectasis. Electronically Signed: Rayo Fowler MD at 15:13 EDT Tel [phone], Service support , Medical Necessity - Tobacco Use Smoking Status: Former smoker Assessment/Plan This is a 67 years old male patient presented to the emergency room because of recurrent falls and generalized weakness and initially was admitted for PT OT as well as [facility] scan brain done and revealed probable acute infarct which MRI brain done and revealed metastatic brain lesions. #1 recurrent falls/functional decline/left lateral chest and rib pain: He is on tramadol for pain control. X-ray shows no acute findings, no rib fractures. His vital signs are stable. Plan for PT OT evaluation and treatment, [facility] pending insurance approval. #2 Metastatic brain lesions: MRI brain with contrast revealed 4 enhancing lesions consistent with metastasis, it is in the left anterior frontal lobe, right frontal, right tomas radiata, left caudate and right occipital region. CT scan chest, abdomen and pelvis revealed no evidence of active lymphadenopathy. After discussion with Dr. Mccoy as well as patient's oncologist up in [facility], Dr. Seymour, plan is to have the patient follow-up with Dr. Seymour outpatient this coming week for further evaluation workup. Patient has no focal deficit on physical exam. #3 very small acute versus subacute punctate right subcortical infarcts: Without focal deficit. 2D echocardiogram revealed ejection fraction 60%. Neurology consulted, mentioned that this very small stroke and clinically not significant. #4 stage III chronic kidney disease: Baseline creatinine has been around 1.4-2 mg/dL. Admission creatinine is 1.57 mg/dL. patient has been on IV fluids after he received contrast for MRI brain. Today's creatinine is 1.7, stable at baseline. #5 history of DVT: With history of recurrent cerebral bleed while on Xarelto and Lovenox. Plan for no anticoagulation. SCDs for DVT prophylaxis. #6 history of diffuse large B cell non-Hodgkin's lymphoma: Status post chemotherapy. CT scan chest, abdomen and pelvis revealed no active disease. Plan to follow-up with his oncologist at [facility] this coming week. #7 history of left testicular cancer: Status post left orchiectomy long time ago. #8 hypertension: Blood pressure stable, continue Norvasc and metoprolol. #9 type 2 diabetes mellitus: ADA diet, Accu-Cheks, insulin sliding scale, continue Lantus insulin as well as sliding scale. #10 DVT prophylaxis: SCDs. This note was generated with [employer] dictation software. It may contain incorrect words, spelling, and punctuation that were not noted in checking the note before signing. Code Visit Inpatient E&M: 70126 Subs Hosp L2
--- NOTE | 2017-12-18 10:21 | PN_ITS ---
Subjective: Chief complaint: Follow-up after admission for frequent falls, physical debility , left lateral rib pain, metastatic brain lesions and acute versus subacute right subcortical infarcts. Patient seen and examined. No acute events overnight. Still complaining of left lateral chest discomfort/pain. No other symptoms. His vital signs are stable. - Physical Exam General: Alert, Oriented x3, Cooperative, No apparent distress HEENT: Atraumatic, PERRLA, EOMI, Normocephalic Oral: Moist Mucosa, No Gingival or Mucosal Lesions/ Ulcerations Neck: Supple, No JVD, Negative Carotid Bruits, Trachea Midline, Thyroid Normal Size and Texture Lungs: Clear to auscultation, No rhonchi, No wheeze, No rales, Diminished Cardiovascular: Regular rate, Regular Rhythm, Normal S1, Normal S2, No murmurs Abdomen: Bowel Sounds Present, Soft, Non Tender, Non-Distended, No Hepato- splenomegaly Extremities: No clubbing, No cyanosis, No edema Skin: No rashes, No breakdown Lymphatic: No Cervical, Supraclavicular, or Inguinal Adenopathy Neurological: Cranial nerves II-XII grossly intact, Neuro grossly intact Psych/Mental Status: Flat Affect, Alert and oriented to time, place, person, mood and affect Vital Signs Temp Pulse Resp BP Pulse Ox 97.7 F L 60 16 150/78 H 95 12/18/17 08:38 12/18/17 09:11 12/18/17 08:38 12/18/17 08:38 12/18/17 08:38 Oxygen Delivery Method Room Air Body Mass Index (BMI) 43.7 Intake and Output for Last 24 Hours 12/16/17 12/17/17 12/18/17 23:59 23:59 23:59 Intake Total 480 / 960 2900 / 2900 2696 / 2696 Balance 480 / 960 2900 / 2900 2696 / 2696 Laboratory Tests Past 24 Hrs 12/18/17 12/18/17 04:40 04:40 WBC 8.5 RBC 5.06 Hgb 14.0 Hct 42.4 MCV 83.8 MCH 27.7 MCHC 33.0 RDW 15.0 H RDW Differential 45.1 H Plt Count 190 MPV 11.0 Immature Gran % (Auto) 0.400 Neut % (Auto) 75.8 H Lymph % (Auto) 11.1 L [place] % (Auto) 8.5 Eos % (Auto) 4.0 Baso % (Auto) 0.2 Absolute Neuts (auto) 6.4 Absolute Lymphs (auto) 0.94 Total Counted Not Reportable Sodium 138 Potassium 4.2 Chloride 104 Carbon Dioxide 27.0 Anion Gap 7 BUN 17 Creatinine 1.37 H Estim Creat Clear Calc 54.96 Est GFR (MDRD) Af Amer 66 Est GFR (MDRD) Non-Af 55 L BUN/Creatinine Ratio 12.4 Glucose 162 H Calcium 8.0 L POC Glucose 12/18/17 12/17/17 12/17/17 06:49 21:52 16:35 POC Glucose 151 H 248 H 248 H 12/17/17 11:27 POC Glucose 236 H Clinical Impression(s) from Imaging Studies Brain CT 12/15/17 13:37 IMPRESSION: 1. Focal area of low attenuation in the right frontal white matter thought to represent a remote infarct. This was not present on the prior exam. There is no evidence of edema midline shift or sulcal effacement to suggest acuity. Remainder of the findings are unchanged and unremarkable. Electronically Signed: Kayode Mohan DO at 15:03 EDT Tel [phone], Service support , Ribs w/Chest X-Ray 12/15/17 14:55 IMPRESSION: RIBS: Normal x-ray examination of the ribs. CHEST: No acute cardiopulmonary disease or interval change. Electronically Signed: Kayode Mohan DO at 15:11 EDT Tel [phone], Service support , Brain MRI 12/16/17 10:06 IMPRESSION: There is suspicion of metastatic disease. Contrast-enhanced MRI sequences are recommended. There appear to be early subacute infarcts of the right cerebrum. Electronically Signed: Annemarie Riggs MD at 13:53 EDT , Service support , Brain MRI 12/17/17 07:50 IMPRESSION: Multiple enhancing lesions, consistent with intracranial lymphoma. N.B. : The above information has been verbally conveyed by Bennie Ricardo MD to , Covering Physician, on 12/17/2017 11:13:53 (ET). Electronically Signed: Bennie Ricardo MD at 9:56 EDT Tel , Service support , N.B. : The above information has been verbally conveyed by Bennie Ricardo MD to , Covering Physician, on 12/17/2017 11:13:53 (ET). Abdomen/Pelvis CT 12/17/17 13:09 IMPRESSION: Findings suggestive mild left basilar atelectasis. No acute abnormality is seen. Electronically Signed: Rayo Fowler MD at 15:11 EDT Tel [phone], Service support , Chest CT 12/17/17 13:09 IMPRESSION: Mild increased markings at the left lung base suggestive of atelectasis. Electronically Signed: Rayo Fowelr MD at 15:13 EDT Tel [phone], Service support , Medical Necessity - Tobacco Use Smoking Status: Former smoker Assessment/Plan This is a 67 years old male patient presented to the emergency room because of recurrent falls and generalized weakness and initially was admitted for PT OT as well as placement to custodial facility. CT scan brain done and revealed probable acute infarct which MRI brain done and revealed metastatic brain lesions. #1 recurrent falls/functional decline/left lateral chest and rib pain: He is on tramadol for pain control. X-ray shows no acute findings, no rib fractures. His vital signs are stable. Plan for PT OT evaluation and treatment, placement to custodial facility pending insurance approval. #2 Metastatic brain lesions: MRI brain with contrast revealed 4 enhancing lesions consistent with metastasis, it is in the left anterior frontal lobe, right frontal, right tomas radiata, left caudate and right occipital region. CT scan chest, abdomen and pelvis revealed no evidence of active lymphadenopathy. After discussion with Dr. Mccoy as well as patient's oncologist up in [facility], Dr. Seymour, plan is to have the patient follow-up with Dr. Seymour outpatient this coming week for further evaluation workup. Patient has no focal deficit on physical exam. #3 very small acute versus subacute punctate right subcortical infarcts: Without focal deficit. 2D echocardiogram revealed ejection fraction 60%. Neurology consulted, mentioned that this very small stroke and clinically not significant. #4 stage III chronic kidney disease: Baseline creatinine has been around 1.4-2 mg/dL. Admission creatinine is 1.57 mg/dL. patient has been on IV fluids after he received contrast for MRI brain. Today's creatinine is 1.7, stable at baseline. #5 history of DVT: With history of recurrent cerebral bleed while on Xarelto and Lovenox. Plan for no anticoagulation. SCDs for DVT prophylaxis. #6 history of diffuse large B cell non-Hodgkin's lymphoma: Status post chemotherapy. CT scan chest, abdomen and pelvis revealed no active disease. Plan to follow-up with his oncologist at [facility] this coming week. #7 history of left testicular cancer: Status post left orchiectomy long time ago. #8 hypertension: Blood pressure stable, continue Norvasc and metoprolol. #9 type 2 diabetes mellitus: ADA diet, Accu-Cheks, insulin sliding scale, continue Lantus insulin as well as sliding scale. #10 DVT prophylaxis: SCDs. This note was generated with [employer] dictation software. It may contain incorrect words, spelling, and punctuation that were not noted in checking the note before signing. Code Visit Inpatient E&M: 38875 Subs Hosp L2
[2017-12-18 10:46] LABS: Bedside Glucose 175 mg/dL (70-110)
--- NOTE | 2017-12-18 12:18 | CASEMGMT ---
Social Work Referral for placement. Spoke with patient in room along with patient spouse. Patient reporting to now want placement to a [facility] facility. Patient reporting to not be able to return home with spouse. Patient spouse agreeable to this and confirming to not be able to help patient within the home. Patient first choice is [facility] and second choice is [facility] (if they are accepting medicare now). Patient and patient spouse aware that no referrals can be made over the weekend and social work will follow up with patient on Wednesday. Support given. Collaborating with RN CM and Doctor, both aware of above information. 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 Ashlyn SOLIS, GENERAL PURCHASING AGENT
[2017-12-18 17:05] LABS: Bedside Glucose 177 mg/dL (70-110)
[2017-12-19] VITALS (15 sets, daily range): BP systolic 101–135; BP diastolic 61–86; PULSE 50–66; RESP 16–20; TEMP 36.3–37.2; O2SAT 93–98; BMI 43.7
[2017-12-19 00:51] LABS: Bedside Glucose 235 mg/dL (70-110)
[2017-12-19 06:55] LABS: Bedside Glucose 199 mg/dL (70-110)
--- NOTE | 2017-12-19 07:41 | PCM.PROGNOTE ---
Subjective: Chief complaint: Follow-up after admission for frequent falls, physical debility, left lateral rib pain, metastatic brain lesions and acute versus subacute right subcortical infarcts. Patient seen and examined. No acute events overnight. He is asymptomatic, denies any complaints. His vital signs are stable. - Physical Exam General: Alert, Oriented x3, Cooperative, No apparent distress HEENT: Atraumatic, PERRLA, EOMI, Normocephalic Oral: Moist Mucosa, No Gingival or Mucosal Lesions/ Ulcerations Neck: Supple, No JVD, Negative Carotid Bruits, Trachea Midline, Thyroid Normal Size and Texture Lungs: Clear to auscultation, No rhonchi, No wheeze, No rales, Diminished Cardiovascular: Regular rate, Regular Rhythm, Normal S1, Normal S2, PMI Normal Abdomen: Bowel Sounds Present, Soft, Non Tender, Non-Distended, No Hepato-splenomegaly, Obese Extremities: No clubbing, No cyanosis, No edema Skin: No rashes, No breakdown Lymphatic: No Cervical, Supraclavicular, or Inguinal Adenopathy Neurological: Cranial nerves II-XII grossly intact, Neuro grossly intact Psych/Mental Status: Flat Affect, Alert and oriented to time, place, person, mood and affect Vital Signs Temp Pulse Resp BP Pulse Ox 98.3 F 50 L 16 120/70 98 12/19/17 06:00 12/19/17 06:59 12/19/17 06:00 12/19/17 06:00 12/19/17 06:00 Oxygen Delivery Method Room Air Body Mass Index (BMI) 43.7 Intake and Output for Last 24 Hours 12/17/17 12/18/17 12/19/17 23:59 23:59 23:59 Intake Total 2900 / 2900 4336 / 4336 120 / 120 Balance 2900 / 2900 4336 / 4336 120 / 120 POC Glucose 12/19/17 12/18/17 12/18/17 06:50 22:35 16:13 POC Glucose 199 H 235 H 177 H 12/18/17 10:35 POC Glucose 175 H Medical Necessity - Tobacco Use Smoking Status: Former smoker Assessment/Plan This is a 67 years old male patient presented to the emergency room because of recurrent falls and generalized weakness and initially was admitted for PT OT as well as placement to [facility] facility. CT scan brain done and revealed probable acute infarct which MRI brain done and revealed metastatic brain lesions. #1 recurrent falls/functional decline/left lateral chest and rib pain: He is on tramadol for pain control. X-ray shows no acute findings, no rib fractures. His vital signs are stable. Awaiting insurance approval for placement to [facility] facility. #2 Metastatic brain lesions: MRI brain with contrast revealed 4 enhancing lesions consistent with metastasis, it is in the left anterior frontal lobe, right frontal, right tomas radiata, left caudate and right occipital region. CT scan chest, abdomen and pelvis revealed no evidence of active lymphadenopathy. After discussion with Dr. Mccoy as well as patient's oncologist up in [facility], Dr. Seymour, plan is to have the patient follow-up with Dr. Seymour outpatient this coming week for further evaluation workup. Patient has no focal deficit on physical exam. #3 very small acute versus subacute punctate right subcortical infarcts: Without focal deficit. 2D echocardiogram revealed ejection fraction 60%. Neurology consulted, mentioned that this very small stroke and clinically not significant. #4 stage III chronic kidney disease: Baseline creatinine has been around 1.4-2 mg/dL. Admission creatinine is 1.57 mg/dL. patient has been on IV fluids after he received contrast for MRI brain. Yesterday's creatinine is 1.7, stable at baseline. #5 history of DVT: With history of recurrent cerebral bleed while on Xarelto and Lovenox. Plan for no anticoagulation. SCDs for DVT prophylaxis. #6 history of diffuse large B cell non-Hodgkin's lymphoma: Status post chemotherapy. CT scan chest, abdomen and pelvis revealed no active disease. Plan to follow-up with his oncologist at [facility] this coming week. #7 history of left testicular cancer: Status post left orchiectomy long time ago. #8 hypertension: Blood pressure stable, continue Norvasc and metoprolol. #9 type 2 diabetes mellitus: ADA diet, Accu-Cheks, insulin sliding scale, continue Lantus insulin as well as sliding scale. #10 DVT prophylaxis: SCDs. This note was generated with [employer] software. It may contain incorrect words, spelling, and punctuation that were not noted in checking the note before signing. Code Visit Inpatient E&M: 22653 Subs Hosp L2
--- NOTE | 2017-12-19 07:48 | PN_ITS ---
Subjective: Chief complaint: Follow-up after admission for frequent falls, physical debility , left lateral rib pain, metastatic brain lesions and acute versus subacute right subcortical infarcts. Patient seen and examined. No acute events overnight. He is asymptomatic, denies any complaints. His vital signs are stable. - Physical Exam General: Alert, Oriented x3, Cooperative, No apparent distress HEENT: Atraumatic, PERRLA, EOMI, Normocephalic Oral: Moist Mucosa, No Gingival or Mucosal Lesions/ Ulcerations Neck: Supple, No JVD, Negative Carotid Bruits, Trachea Midline, Thyroid Normal Size and Texture Lungs: Clear to auscultation, No rhonchi, No wheeze, No rales, Diminished Cardiovascular: Regular rate, Regular Rhythm, Normal S1, Normal S2, PMI Normal Abdomen: Bowel Sounds Present, Soft, Non Tender, Non-Distended, No Hepato- splenomegaly, Obese Extremities: No clubbing, No cyanosis, No edema Skin: No rashes, No breakdown Lymphatic: No Cervical, Supraclavicular, or Inguinal Adenopathy Neurological: Cranial nerves II-XII grossly intact, Neuro grossly intact Psych/Mental Status: Flat Affect, Alert and oriented to time, place, person, mood and affect Vital Signs Temp Pulse Resp BP Pulse Ox 98.3 F 50 L 16 120/70 98 12/19/17 06:00 12/19/17 06:59 12/19/17 06:00 12/19/17 06:00 12/19/17 06:00 Oxygen Delivery Method Room Air Body Mass Index (BMI) 43.7 Intake and Output for Last 24 Hours 12/17/17 12/18/17 12/19/17 23:59 23:59 23:59 Intake Total 2900 / 2900 4336 / 4336 120 / 120 Balance 2900 / 2900 4336 / 4336 120 / 120 POC Glucose 12/19/17 12/18/17 12/18/17 06:50 22:35 16:13 POC Glucose 199 H 235 H 177 H 12/18/17 10:35 POC Glucose 175 H Medical Necessity - Tobacco Use Smoking Status: Former smoker Assessment/Plan This is a 67 years old male patient presented to the emergency room because of recurrent falls and generalized weakness and initially was admitted for PT OT as well as placement to long-term facility. CT scan brain done and revealed probable acute infarct which MRI brain done and revealed metastatic brain lesions. #1 recurrent falls/functional decline/left lateral chest and rib pain: He is on tramadol for pain control. X-ray shows no acute findings, no rib fractures. His vital signs are stable. Awaiting insurance approval for placement to long-term facility. #2 Metastatic brain lesions: MRI brain with contrast revealed 4 enhancing lesions consistent with metastasis, it is in the left anterior frontal lobe, right frontal, right tomas radiata, left caudate and right occipital region. CT scan chest, abdomen and pelvis revealed no evidence of active lymphadenopathy. After discussion with Dr. Mccoy as well as patient's oncologist up in [facility], Dr. Seymour, plan is to have the patient follow-up with Dr. Seymour outpatient this coming week for further evaluation workup. Patient has no focal deficit on physical exam. #3 very small acute versus subacute punctate right subcortical infarcts: Without focal deficit. 2D echocardiogram revealed ejection fraction 60%. Neurology consulted, mentioned that this very small stroke and clinically not significant. #4 stage III chronic kidney disease: Baseline creatinine has been around 1.4-2 mg/dL. Admission creatinine is 1.57 mg/dL. patient has been on IV fluids after he received contrast for MRI brain. Yesterday's creatinine is 1.7, stable at baseline. #5 history of DVT: With history of recurrent cerebral bleed while on Xarelto and Lovenox. Plan for no anticoagulation. SCDs for DVT prophylaxis. #6 history of diffuse large B cell non-Hodgkin's lymphoma: Status post chemotherapy. CT scan chest, abdomen and pelvis revealed no active disease. Plan to follow-up with his oncologist at [facility] this coming week. #7 history of left testicular cancer: Status post left orchiectomy long time ago. #8 hypertension: Blood pressure stable, continue Norvasc and metoprolol. #9 type 2 diabetes mellitus: ADA diet, Accu-Cheks, insulin sliding scale, continue Lantus insulin as well as sliding scale. #10 DVT prophylaxis: SCDs. This note was generated with [employer] software. It may contain incorrect words, spelling, and punctuation that were not noted in checking the note before signing. Code Visit Inpatient E&M: 01664 Subs Hosp L2
[2017-12-19] MEDS: Insulin Lispro 100 UNIT/ML INSULN.PEN SC ×4 (08:58→22:49)
[2017-12-19] MEDS: Glucerna Shake 120 ML LIQUID PO ×3 (08:59→16:43)
[2017-12-19] MEDS: Ascorbic Acid 500 MG Tablet 1000 MG PO (08:59)
[2017-12-19] MEDS: Pantoprazole Sodium 40 MG Tablet PO (08:59)
[2017-12-19] MEDS: Multivitamins,Therapeutic Tablet 1 TABLET PO (08:59)
[2017-12-19] MEDS: amLODIPine 5 MG Tablet PO (08:59)
[2017-12-19] MEDS: Metoprolol(XL)Succ 25 MG Tablet 12.5 MG PO ×2 (08:59→22:46)
[2017-12-19 12:05] LABS: Bedside Glucose 290 mg/dL (70-110)
[2017-12-19 16:20] LABS: Bedside Glucose 224 mg/dL (70-110)
[2017-12-20] VITALS (8 sets, daily range): BP systolic 127–143; BP diastolic 58–86; PULSE 50–64; RESP 16–18; TEMP 36.6–36.8; O2SAT 95–99; BMI 43.7
[2017-12-20 00:26] LABS: Bedside Glucose 231 mg/dL (70-110)
[2017-12-20 07:10] LABS: Bedside Glucose 197 mg/dL (70-110)
[2017-12-20] MEDS: Glucerna Shake 120 ML LIQUID PO ×2 (08:55→12:41)
[2017-12-20] MEDS: Multivitamins,Therapeutic Tablet 1 TABLET PO (08:55)
[2017-12-20] MEDS: Insulin Lispro 100 UNIT/ML INSULN.PEN SC ×2 (08:56→12:41)
[2017-12-20] MEDS: Ascorbic Acid 500 MG Tablet 1000 MG PO (08:56)
[2017-12-20] MEDS: amLODIPine 5 MG Tablet PO (08:56)
[2017-12-20] MEDS: Pantoprazole Sodium 40 MG Tablet PO (08:57)
--- NOTE | 2017-12-20 09:26 | CASEMGMT ---
SW received note from weekend SW that patient's first choice would be [facility] and second would be [facility]. SW faxed referral to [facility] and called Xuan at [facility] with referral. Await response from [facility]. Susan CISNEROS MSW
--- NOTE | 2017-12-20 09:54 | CASEMGMT ---
JOELLE received a call from Marga at [facility]. They can accept patient. They will obtain a specialized bed due to patient's weight. JOELLE will notify patient and physician of [facility] acceptance. Plan: d/c to [facility] under skilled level of care on a convalescent stay. Susan PARADA
[2017-12-20] MEDS: Metoprolol(XL)Succ 25 MG Tablet 12.5 MG PO (10:57)
[2017-12-20 11:45] LABS: Bedside Glucose 224 mg/dL (70-110)
--- NOTE | 2017-12-20 11:54 | PCM.TXEXTCAR ---
- Routine Orders/Code Status Suppository Type: Dulcolax 10mg Suppository Frequency: Daily PRN Routine Lab Work: CBC, BMP Code Status: Full Code - Therapies Physical Therapy: Eval and Treat Occupational Therapy: Eval and Treat - Problem/Diagnosis (1) Non Hodgkin's lymphoma Status: Chronic Current Visit: No (2) CVA (cerebral vascular accident) Status: Acute Current Visit: Yes (3) Weakness Status: Chronic Current Visit: Yes (4) CKD (chronic kidney disease), stage III Status: Chronic Current Visit: Yes (5) Hypertension Status: Chronic Current Visit: No (6) Morbid obesity Status: Chronic Current Visit: No (7) History of DVT (deep vein thrombosis) Status: Chronic Current Visit: No (8) Diabetes mellitus Status: Chronic Current Visit: No - Allergies/Procedures Done in Hospital Allergies/Adverse Reactions: Allergies niacin Allergy (Verified 12/15/17 13:01) Hives piroxicam [From Feldene] Adverse Reaction (Verified 12/15/17 13:01) Upset Stomach rivaroxaban [From Xarelto] Adverse Reaction (Verified 12/15/17 13:01) BRAIN BLEED Procedures: 2-D Echocardiogram - Type of Care/Length of Stay Estimated LOS: Convalescent Care Less Than 30 days Type of Care Needed: Skilled Rehab Potential: Fair Prognosis: Fair - Additional Orders/Day of Discharge Day of Discharge: 12/20/17 - Dietary and Speech Recommendations Dietitian Recommendations/Changes: Recommend diet change to [place] Carbohydrate-Controlled, no added salt. Continue 120 ml Glucerna Shake TID on medpass as tolerated. New weight as able. - Follow Up Care Primary Care Physician: Jorge Dao DO [Primary Care Provider] - Please follow up with your Primary Care Physician in: 1-2 weeks Please Follow Up With: [facility] Oncology When: Call for appointment - to be seen this week. Please Follow Up With: Noel Squires MD When: 2 weeks
--- NOTE | 2017-12-20 12:02 | TREXTCAR_ITS ---
- Routine Orders/Code Status Suppository Type: Dulcolax 10mg Suppository Frequency: Daily PRN Routine Lab Work: CBC, BMP Code Status: Full Code - Therapies Physical Therapy: Eval and Treat Occupational Therapy: Eval and Treat - Problem/Diagnosis (1) Non Hodgkin's lymphoma Status: Chronic Current Visit: No (2) CVA (cerebral vascular accident) Status: Acute Current Visit: Yes (3) Weakness Status: Chronic Current Visit: Yes (4) CKD (chronic kidney disease), stage III Status: Chronic Current Visit: Yes (5) Hypertension Status: Chronic Current Visit: No (6) Morbid obesity Status: Chronic Current Visit: No (7) History of DVT (deep vein thrombosis) Status: Chronic Current Visit: No (8) Diabetes mellitus Status: Chronic Current Visit: No - Allergies/Procedures Done in Hospital Allergies/Adverse Reactions: Allergies niacin Allergy (Verified 12/15/17 13:01) Hives piroxicam [From Feldene] Adverse Reaction (Verified 12/15/17 13:01) Upset Stomach rivaroxaban [From Xarelto] Adverse Reaction (Verified 12/15/17 13:01) BRAIN BLEED Procedures: 2-D Echocardiogram - Type of Care/Length of Stay Estimated LOS: Convalescent Care Less Than 30 days Type of Care Needed: Skilled Rehab Potential: Fair Prognosis: Fair - Additional Orders/Day of Discharge Day of Discharge: 12/20/17 - Dietary and Speech Recommendations Dietitian Recommendations/Changes: Recommend diet change to [place] Carbohydrate -Controlled, no added salt. Continue 120 ml Glucerna Shake TID on medpass as tolerated. New weight as able. - Follow Up Care Primary Care Physician: Jorge Dao DO [Primary Care Provider] - Please follow up with your Primary Care Physician in: 1-2 weeks Please Follow Up With: [facility] Oncology When: Call for appointment - to be seen this week. Please Follow Up With: Noel Squires MD When: 2 weeks
--- NOTE | 2017-12-20 13:07 | CASEMGMT ---
JOELLE spoke with patient's and she would like to transport patient on her own. JOELLE faxed orders to [facility]. Completed convalescent form on [facility]. All in agreement with d/c plan. Plan: d/c to [facility] under skilled level of care on a convalescent stay. transported via private vehicle. Susan CISNEROS MSW
--- NOTE | 2017-12-20 13:43 | PCM.DC.SUM ---
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 CKD stage III Debility with recurrent falls, functional decline History of intracerebral hemorrhage on Xarelto and Lovenox History of DVTs History of diffuse large B cell non-Hodgkin's lymphoma History of left testicular cancer status post orchiectomy Hypertension Type 2 diabetes mellitus - Secondary Discharge Diagnosis Chronic Problems CKD (chronic kidney disease), stage III (Chronic) Weakness (Chronic) Pancytopenia (Chronic) Non Hodgkin's lymphoma (Chronic) Hypertension (Chronic) Morbid obesity (Chronic) History of DVT (deep vein thrombosis) (Chronic) Diabetes mellitus (Chronic) Hyperlipidemia (Chronic) Hospital Course and Treatment Imaging Results: CT/Brain/Head without Contrast IMPRESSION: 1. Focal area of low attenuation in the right frontal white matter thought to represent a remote infarct. This was not present on the prior exam. There is no evidence of edema midline shift or sulcal effacement to suggest acuity. Remainder of the findings are unchanged and unremarkable. RAD/Ribs Uni Min 3V w/PA Chest IMPRESSION: RIBS: Normal x-ray examination of the ribs. CHEST: No acute cardiopulmonary disease or interval change. MRI/Brain without Contrast IMPRESSION: There is suspicion of metastatic disease. Contrast-enhanced MRI sequences are recommended. There appear to be early subacute infarcts of the right cerebrum. MRI/Brain WITH Contrast IMPRESSION: Multiple enhancing lesions, consistent with intracranial lymphoma. N.B. : The above information has been verbally conveyed by Bennie Ricardo MD to , Covering Physician, on 12/17/2017 11:13:53 (ET). Echo: Interpretation Summary Normal LV size. The estimated ejection fraction is 60 %. Transmitral diastolic flow velocities suggest mild (stage 1) diastolic dysfunction (reversed pattern). Contrast injection was performed. Compared to prior study, there is no significant change. CT/Abdomen/Pelvis without Cont IMPRESSION: Findings suggestive mild left basilar atelectasis. No acute abnormality is seen. Consults: D[facility] - [facility] - neuro Operations: None Procedures: 2-D Echocardiogram Summary of Care Provided: Physical exam on day of discharge: General: Resting comfortably NAD Psych: A/Ox3 normal affect HEENT: PEARRLA AT NC Neck: Supple NT CV: RRR no m/t/r/g/h Resp: CTA Abd: [id number] Soft NT no guarding or rigidity Ext: DP2+= no edema Skin: W/D normal turgor Lymph/Heme: No active bleeding or adenopathy Neuro: CN2-12 intact Hospital course: The patient is a 67 year old M with a history of functional decline, recurrent falls at home, history of diffuse B cell non-Hodgkin's lymphoma, testicular cancer, type 2 diabetes mellitus, hypertension, CKD 3 who presented to the emergency room after falling at home attempting to enter his house. He did not have any focal deficits, and he cannot remember any unusual sensations prior to the fall and the circumstances were unclear. He is admitted to the PCU and underwent MRI of the brain this demonstrated diffuse metastatic brain disease, and small subacute punctate right subcortical infarcts. Oncology and neurology were consulted. 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 Is felt to be secondary to the NHL that he had previously been diagnosed with and was prior thought to be in remission. The patient's oncologists were at [facility] and did not come here so he was evaluated by Dr. Mccoy while here. Neurology evaluated the patient as well and did not feel that the small infarcts seen were clinically significant. The patient had prior history of DVTs and had been on both Xarelto and Lovenox in the past and had intracranial hemorrhage with both of these, and therefore no anticoagulation was recommended at this time. His oncologist Dr. Pal and Dr. Seymour who agreed to see the patient this week as an outpatient. He remained clinically stable and he was discharged to snf in stable condition as he had been experiencing functional decline at home with multiple falls, and is expected to have further complications depending on what treatments he pursues for his metastatic disease. Should follow-up with his oncologist as above, with neurology, and with his PCP. Also of note his beta-jacoby was discontinued while here as he had bradycardia. [] This patient was seen by Kishore Rodríguez PA-C under the supervision of Doctor Jim. Discharge Diet: Low fat/ Low Cholesterol, 1800 Calorie Control Diet, 2000 mg Sodium Diet Discharge Activity: Return to Normal Activity Home Medications: Medications to take at Discharge Ascorbic Acid [Vitamin C] 1,000 mg PO DAILY@0800 05/30/13 Paroxetine HCl [Paxil] 20 mg PO DAILY 12/04/14 Multivitamins,Therapeutic [Multivitamin] 1 tablet PO DAILYCM tablet 03/12/16 Amlodipine [Norvasc] 5 mg PO DAILY 07/08/17 Insulin Glargine [Lantus SoloStar Pen] 50 units SC DAILY 07/08/17 Insulin Glargine/Lixisenatide [Soliqua 100 Unit-33 Mcg/ml Pen] 50 unit SQ QHS 12/15/17 Pantoprazole Sodium 40 mg PO DAILY 12/15/17 Glucerna Shake 120 ml PO TIDCM liquid 12/20/17 Magnesium Hydroxide [Milk Of Magnesia] 30 ml PO DAILY PRN PRN udc 12/20/17 traMADol [Ultram] 50 mg PO BID 3 Days #6 tab 12/20/17 Following Prescrptions Were Given to Patient: traMADol [Ultram] 50 mg PO BID 3 Days #6 tab Primary Care Physician: Jorge Dao DO [Primary Care Provider] - Please follow up with your Primary Care Physician in: 1-2 weeks Please Follow Up With: [facility] Oncology When: Call for appointment - to be seen this week. Please Follow Up With: Noel Squires MD When: 2 weeks Disposition: Intermediate facility Minutes spent on discharge:: 35 Patient Condition:: Stable Medical Necessity - Tobacco Use Smoking Status: Former smoker Meaningful Use Info Meaningful Use Diagnoses (Choose all that apply): None applicable <Brandt Fernandez - Last Filed: 12/20/17 16:35> Discharge Date and Diagnosis - Secondary Discharge Diagnosis Chronic Problems CKD (chronic kidney disease), stage III (Chronic) Weakness (Chronic) Pancytopenia (Chronic) Non Hodgkin's lymphoma (Chronic) Hypertension (Chronic) Morbid obesity (Chronic) History of DVT (deep vein thrombosis) (Chronic) Diabetes mellitus (Chronic) Hyperlipidemia (Chronic) Hospital Course and Treatment Summary of Care Provided: This patient was seen in conjunction with Kishore ROSAS. I have independently interviewed and examined the patient and reviewed pertinent history, examination findings, laboratory and plan of management. I have reviewed the note and agree with the documented findings with the few additional points. In brief, patient is admitted for acute on recurrent fall at home, functional decline with history of diffuse B cell non-Hodgkin's lymphoma in remission with right subclavian mediport, follows Dr Wood. PT Saw Dr. Pal about 3 years ago. MRI of the scan without contrast rules suspicion of metastatic disease or area of hyperintensity of the medial right frontal lobe. Repeat MRI brain with contrast shows multiple enhancing lesion consistent with intracranial lymphoma. Patient has appointment with oncologist on coming Wednesday. Patient might need brain biopsy. I have discussed my assessment with Kishore ROSAS and orders have been reviewed. [] Discharge medication reconciliation done. Discharge follow-up instructions completed. Patient is being transferred to SNF Total time spent, exact 35 minutes on discharge meds reconciliation, examination, review of imaging and blood test and discussion with the patient on follow-up instructions. Clinical Impression(s) from Imaging Studies Brain CT 12/15/17 13:37 IMPRESSION: 1. Focal area of low attenuation in the right frontal white matter thought to represent a remote infarct. This was not present on the prior exam. There is no evidence of edema midline shift or sulcal effacement to suggest acuity. Remainder of the findings are unchanged and unremarkable. Brain MRI 12/16/17 10:06 IMPRESSION: There is suspicion of metastatic disease. Contrast-enhanced MRI sequences are recommended. There appear to be early subacute infarcts of the right cerebrum. Brain MRI 12/17/17 07:50 IMPRESSION: Multiple enhancing lesions, consistent with intracranial lymphoma. Code Visit Inpatient E&M: [id number] Disch Hosp
--- NOTE | 2017-12-20 13:52 | DS.PCM_ITS ---
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 CKD stage III Debility with recurrent falls, functional decline History of intracerebral hemorrhage on Xarelto and Lovenox History of DVTs History of diffuse large B cell non-Hodgkin's lymphoma History of left testicular cancer status post orchiectomy Hypertension Type 2 diabetes mellitus - Secondary Discharge Diagnosis Chronic Problems CKD (chronic kidney disease), stage III (Chronic) Weakness (Chronic) Pancytopenia (Chronic) Non Hodgkin's lymphoma (Chronic) Hypertension (Chronic) Morbid obesity (Chronic) History of DVT (deep vein thrombosis) (Chronic) Diabetes mellitus (Chronic) Hyperlipidemia (Chronic) Hospital Course and Treatment Imaging Results: CT/Brain/Head without Contrast IMPRESSION: 1. Focal area of low attenuation in the right frontal white matter thought to represent a remote infarct. This was not present on the prior exam. There is no evidence of edema midline shift or sulcal effacement to suggest acuity. Remainder of the findings are unchanged and unremarkable. RAD/Ribs Uni Min 3V w/PA Chest IMPRESSION: RIBS: Normal x-ray examination of the ribs. CHEST: No acute cardiopulmonary disease or interval change. MRI/Brain without Contrast IMPRESSION: There is suspicion of metastatic disease. Contrast-enhanced MRI sequences are recommended. There appear to be early subacute infarcts of the right cerebrum. MRI/Brain WITH Contrast IMPRESSION: Multiple enhancing lesions, consistent with intracranial lymphoma. N.B. : The above information has been verbally conveyed by Bennie Ricardo MD to , Covering Physician, on 12/17/2017 11:13:53 (ET). Echo: Interpretation Summary Normal LV size. The estimated ejection fraction is 60 %. Transmitral diastolic flow velocities suggest mild (stage 1) diastolic dysfunction (reversed pattern). Contrast injection was performed. Compared to prior study, there is no significant change. CT/Abdomen/Pelvis without Cont IMPRESSION: Findings suggestive mild left basilar atelectasis. No acute abnormality is seen. Consults: [facility] - [facility] - neuro Operations: None Procedures: 2-D Echocardiogram Summary of Care Provided: Physical exam on day of discharge: General: Resting comfortably NAD Psych: A/Ox3 normal affect HEENT: PEARRLA AT NC Neck: Supple NT CV: RRR no m/t/r/g/h Resp: CTA Abd: [id number] Soft NT no guarding or rigidity Ext: DP2+= no edema Skin: W/D normal turgor Lymph/Heme: No active bleeding or adenopathy Neuro: CN2-12 intact Hospital course: The patient is a 67 year old M with a history of functional decline, recurrent falls at home, history of diffuse B cell non-Hodgkin's lymphoma, testicular cancer, type 2 diabetes mellitus, hypertension, CKD 3 who presented to the emergency room after falling at home attempting to enter his house. He did not have any focal deficits, and he cannot remember any unusual sensations prior to the fall and the circumstances were unclear. He is admitted to the PCU and underwent MRI of the brain this demonstrated diffuse metastatic brain disease, and small subacute punctate right subcortical infarcts. Oncology and neurology were consulted. 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 Is felt to be secondary to the NHL that he had previously been diagnosed with and was prior thought to be in remission. The patient's oncologists were at [facility] and did not come here so he was evaluated by Dr. Mccoy while here. Neurology evaluated the patient as well and did not feel that the small infarcts seen were clinically significant. The patient had prior history of DVTs and had been on both Xarelto and Lovenox in the past and had intracranial hemorrhage with both of these, and therefore no anticoagulation was recommended at this time. His oncologist Dr. Pal and Dr. Seymour who agreed to see the patient this week as an outpatient. He remained clinically stable and he was discharged to [facility] in stable condition as he had been experiencing functional decline at home with multiple falls, and is expected to have further complications depending on what treatments he pursues for his metastatic disease. Should follow-up with his oncologist as above, with neurology, and with his PCP. Also of note his beta-jacoby was discontinued while here as he had bradycardia. [] This patient was seen by Kishore Rodríguez PA-C under the supervision of Doctor Jim. Discharge Diet: Low fat/ Low Cholesterol, 1800 Calorie Control Diet, 2000 mg Sodium Diet Discharge Activity: Return to Normal Activity Home Medications: Medications to take at Discharge Ascorbic Acid [Vitamin C] 1,000 mg PO DAILY@0800 05/30/13 Paroxetine HCl [Paxil] 20 mg PO DAILY 12/04/14 Multivitamins,Therapeutic [Multivitamin] 1 tablet PO DAILYCM tablet 03/12/16 Amlodipine [Norvasc] 5 mg PO DAILY 07/08/17 Insulin Glargine [Lantus SoloStar Pen] 50 units SC DAILY 07/08/17 Insulin Glargine/Lixisenatide [Soliqua 100 Unit-33 Mcg/ml Pen] 50 unit SQ QHS Pantoprazole Sodium 40 mg PO DAILY 12/15/17 Glucerna Shake 120 ml PO TIDCM liquid 12/20/17 Magnesium Hydroxide [Milk Of Magnesia] 30 ml PO DAILY PRN PRN udc 12/20/17 traMADol [Ultram] 50 mg PO BID 3 Days #6 tab 12/20/17 Following Prescrptions Were Given to Patient: traMADol [Ultram] 50 mg PO BID 3 Days #6 tab Primary Care Physician: Jorge Dao DO [Primary Care Provider] - Please follow up with your Primary Care Physician in: 1-2 weeks Please Follow Up With: Lion [facility] Oncology When: Call for appointment - to be seen this week. Please Follow Up With: Noel Squires MD When: 2 weeks Disposition: Nursing Home facility Minutes spent on discharge:: 35 Patient Condition:: Stable Medical Necessity - Tobacco Use Smoking Status: Former smoker Meaningful Use Info Meaningful Use Diagnoses (Choose all that apply): None applicable <Brandt Fernandez - Last Filed: 12/20/17 16:35> Discharge Date and Diagnosis - Secondary Discharge Diagnosis Chronic Problems CKD (chronic kidney disease), stage III (Chronic) Weakness (Chronic) Pancytopenia (Chronic) Non Hodgkin's lymphoma (Chronic) Hypertension (Chronic) Morbid obesity (Chronic) History of DVT (deep vein thrombosis) (Chronic) Diabetes mellitus (Chronic) Hyperlipidemia (Chronic) Hospital Course and Treatment Summary of Care Provided: This patient was seen in conjunction with Kishore ROSAS. I have independently interviewed and examined the patient and reviewed pertinent history, examination findings, laboratory and plan of management. I have reviewed the note and agree with the documented findings with the few additional points. In brief, patient is admitted for acute on recurrent fall at home, functional decline with history of diffuse B cell non-Hodgkin's lymphoma in remission with right subclavian mediport, follows Dr Wood. PT Saw Dr. Pal about 3 years ago. MRI of the scan without contrast rules suspicion of metastatic disease or area of hyperintensity of the medial right frontal lobe. Repeat MRI brain with contrast shows multiple enhancing lesion consistent with intracranial lymphoma. Patient has appointment with oncologist on coming Wednesday. Patient might need brain biopsy. I have discussed my assessment with Kishore ROSAS and orders have been reviewed. [] Discharge medication reconciliation done. Discharge follow-up instructions completed. Patient is being transferred to SNF Total time spent, exact 35 minutes on discharge meds reconciliation, examination , review of imaging and blood test and discussion with the patient on follow-up instructions. Clinical Impression(s) from Imaging Studies Brain CT 12/15/17 13:37 IMPRESSION: 1. Focal area of low attenuation in the right frontal white matter thought to represent a remote infarct. This was not present on the prior exam. There is no evidence of edema midline shift or sulcal effacement to suggest acuity. Remainder of the findings are unchanged and unremarkable. Brain MRI 12/16/17 10:06 IMPRESSION: There is suspicion of metastatic disease. Contrast-enhanced MRI sequences are recommended. There appear to be early subacute infarcts of the right cerebrum. Brain MRI 12/17/17 07:50 IMPRESSION: Multiple enhancing lesions, consistent with intracranial lymphoma. Code Visit Inpatient E&M: [id number] Disch Hosp
[2017-12-20] MEDS: 0.9% NaCl VAD Flush 10 ML IV (14:45)
== END 2017-12-20 15:00 | disposition skilled nursing facility (03) | DRG 840 ==
LOC: ED 16:17 → PCU 12-16 06:22
PROVIDERS: Hospitalist; Physician Assistant; Admitting Provider Internal Medicine; Emergency Provider Emergency Medicine; Family Provider Family Medicine; PCP Family Medicine; Visit Provider Internal Medicine
DX: C83.39 Diffuse large B-cell lymphoma, extranodal and solid organ sites (principal); I63.9 Cerebral infarction, unspecified; Z68.41 Body mass index [BMI] 40.0-44.9, adult; E66.01 Morbid (severe) obesity due to excess calories; E78.5 Hyperlipidemia, unspecified; R29.6 Repeated falls; Z79.4 Long term (current) use of insulin; S20.212A Contusion of left front wall of thorax, initial encounter; W19.XXXA Unspecified fall, initial encounter; Y92.019 Unspecified place in single-family (private) house as the place of occurrence of the external cause; Z86.718 Personal history of other venous thrombosis and embolism; N18.3 Chronic kidney disease, stage 3 (moderate); E11.22 Type 2 diabetes mellitus with diabetic chronic kidney disease; I12.9 Hypertensive chronic kidney disease with stage 1 through stage 4 chronic kidney disease, or unspecified chronic kidney disease; Z85.47 Personal history of malignant neoplasm of testis; Z90.79 Acquired absence of other genital organ(s); Z92.21 Personal history of antineoplastic chemotherapy; R53.81 Other malaise; Z86.79 Personal history of other diseases of the circulatory system; Z87.891 Personal history of nicotine dependence
CPT/HCPCS: 36591; 70450; 70551; 70552; 71101; 71250; 74176; 80048; 81001; 82962; 84484; 85025; 93005; 93306; 93880; 97116; 97162; 97165; 97530; 97802; 99283; A9585; J7030; J7040; Q9957; A4216; C8929; J2405

== ENCOUNTER 2018-02-02 10:56 | Inpatient (IN) | payer MEDICARE, OTHER, SELFPAY ==
[2018-02-02] VITALS (14 sets, daily range): BP systolic 111–116; BP diastolic 58–72; PULSE 65–77; RESP 12–22; TEMP 36.2–37.2; O2SAT 92–96; BMI 40.5; BMI 43.1; BMI 43.2
--- NOTE | 2018-02-02 11:23 | ED.VISSUMM ---
- ER Visit Summary Date of Service: 02/02/18 Chief Complaint: Shortness of breath History of Present Illness: The patient is a 67 M presenting with shortness of breath. This has been ongoing for the past 3 days. It is worsened with exertion. He has had a mild dry cough. He has had chills with no fever. He denies chest pain. He has a history of non-Hodgkin's lymphoma with recently diagnosed metastatic brain lesions. He his oncologist is at and he is scheduled to start a new chemotherapy next week. He has a history of DVT. He is not currently on anticoagulants. He denies headache, weakness, numbness. Denies other complaints. Physical Examination: Vitals are stable. Patient is afebrile. Alert no acute distress. HEENT exam is unremarkable. Neck is supple. Lungs are clear and equal bilaterally. Heart is regular rate and rhythm. Abdomen is soft nontender nondistended. Extremities are unremarkable. Skin is warm and dry. No focal neurologic deficit. Remainder of exam is unremarkable. Emergency Department Course and Treatment: EKG is sinus rate of 71 with no acute ischemic changes, unchanged from previous. CBC shows a white count 11.8, platelets 78. Chemistries show sodium 131, glucose 388, BUN 41, creatinine 2.27. His creatinine is elevated from baseline. Troponin is indeterminate 0.059. BNP is normal. Unable to obtain CTA chest due to his elevated creatinine. Chest x-ray shows no acute process. VQ scan was ordered. NORMAL 99m Tc DTPA aerosol ventilation/Tc 99m MAA pulmonary perfusion imaging examination, according to PIOPED II interpretive criteria. While in the emergency department, he has been hypoxic in the high 80s. He was put on 2 L nasal cannula oxygen with improvement. Discussed with the hospitalist for admission. Disposition: Admission Impression: Dyspnea, hypoxia; acute on chronic renal insufficiency; indeterminate troponin This note was generated with Richard Pauer - 3P dictation software. It may contain incorrect words, spelling, and punctuation that were not noted in review of the chart prior to signing ED Disposition - Plan for ED Patient: Chief Complaint: Shortness of Breath
[2018-02-02 11:38] LABS: Absolute Lymphocyte Count 0.63 X10^3/ul (0.83-4.51); Absolute Neutrophil Count 10.5 X10^3/uL (2.0-7.7); Basophil# 0.01 X10^3/uL; Basophil% 0.1 % (0-1); Hematocrit 43.8 % (40-54); Hemoglobin 14.3 g/dl (13.0-16.5); Lymphocyte # 0.63 X10^3/ul (4.0); Lymphocyte % 5.3 % (19-41); Mean Corp Hgb Conc 32.6 g/gl (32-36); Mean Corpuscular Hgb 27.2 pg (27.0-32.0); Mean Corpuscular Volume 83.3 fL (80-94); Mean Platelet Vol. 9.8 fl (6.2-12.0); Monocyte# 0.54 X10^3/uL; Monocyte% 4.6 % (0-10); Neutrophil # 10.53 X10^3/uL (2.7-7.7); Neutrophil % 89.1 % (47-70); Platelet Count 78 K/mm3 (150-450); RBC Distribution Width CV 16.8 % (11.6-14.6); RBC Distribution Width SD 50.1 fl (35.1-43.9); Red Blood Count 5.26 M/mm3 (4.6-6.2); White Blood Count 11.8 K/mm3 (4.4-11.0)
[2018-02-02 11:39] LABS: POSITIVE COUNT NO; POSITIVE DIFFERENTIAL NO; POSITIVE MORPHOLOGY NO
[2018-02-02 11:57] LABS: Anion Gap 9 (5-15); BUN 41 mg/dL (7-18); BUN/Creat Ratio 18.1 RATIO (10-20); Calcium,Total 8.2 mg/dL (8.5-10.1); Chloride 94 mmol/L (98-107); Creatinine, Serum 2.27 mg/dL (0.70-1.30); EST Glomerular Filtration Rate 31 mL/min (>60); Est Glom Filt Rate - Afr Amer 37 mL/min (>60); Estimated Creatinine Clearance 33.17 ml/min; Glucose 388 mg/dL (74-106); Potassium 4.2 mmol/L (3.5-5.1); Sodium Level 131 mmol/L (136-145)
[2018-02-02 12:07] LABS: BNP,B-Type NATRIURETIC PEPTIDE 61.8 pg/mL (0-100)
[2018-02-02] MEDS: 0.9% Normal Saline 1,000 ML 999 ML IV (12:38)
--- NOTE | 2018-02-02 15:11 | NURSING ---
DR KINNEY FOR ER DOC
--- NOTE | 2018-02-02 15:16 | NURSING ---
PCU DYSPNEA, MEGAN, INDETERMAINATE TROP NIRMAL
--- NOTE | 2018-02-02 15:49 | HP.PCM_ITS ---
<Kishore Rodríguez - Last Filed: 02/02/18 15:58> Problem List (1) Brain metastases Status: Chronic (2) CKD (chronic kidney disease), stage III Status: Chronic (3) CVA (cerebral vascular accident) Status: Chronic (4) Non Hodgkin's lymphoma Status: Chronic (5) Hypertension Status: Chronic (6) Morbid obesity Status: Chronic (7) History of DVT (deep vein thrombosis) Status: Chronic (8) Diabetes mellitus Status: Chronic (9) Hyperlipidemia Status: Chronic History of Present Illness Date of Admission: 02/02/18 Chief Complaint: SOB The patient is a 67 year old M with a hx of NH lymphoma with known brain mets ( pt of oncology due for chemo next week), hx of recent CVA, HTN, HLD, CAD s/p x1 stent, hx of DVTs, hx of intracerebral hemorrhage on xarelto and lovenox, hx of testicular CA s/p orchiectomy, who presents to the ER with SOB worse with exertion. He was in the hospital about 1 month ago for weakness and at that time was diagnoses with a small stroke and multiple brain mets felt to be 2/2 NHL though to be in remission. He was referred to his oncologists at who are planning to start chemo next week. He was discharged from the hospital to intermediate. He was doing well with SNF and was discharged about ten days ago. He started to decline at home. About 3 days ago he started to become SOB. This occurs at rest, but is worse with even walking across the room to the bathroom. He denies cough. He denies chest pain, tightness, or heaviness. He did have severe heartburn 2 days ago. He has also had shaking chills at night and night sweats. He has no LE edema. He has no abdominal pain, nausea, vomiting , diarrhea, distention, or dysuria. In the ER workup was significant for mildly elevated WBC count, clear cxr and negative VQ scan. He appears to have MEGAN on BMP and hyponatremia. [] Past Medical History Past Medical History (Chronic Problems): Chronic Problems CKD (chronic kidney disease), stage III (Chronic) Weakness (Chronic) CVA (cerebral vascular accident) (Chronic) Brain metastases (Chronic) Pancytopenia (Chronic) Non Hodgkin's lymphoma (Chronic) Hypertension (Chronic) Morbid obesity (Chronic) History of DVT (deep vein thrombosis) (Chronic) Diabetes mellitus (Chronic) Hyperlipidemia (Chronic) Allergies niacin Allergy (Verified 02/02/18 10:58) Hives piroxicam [From Feldene] Adverse Reaction (Verified 02/02/18 10:58) Upset Stomach rivaroxaban [From Xarelto] Adverse Reaction (Verified 02/02/18 10:58) BRAIN BLEED Home Medications: Ambulatory Orders Medication Instructions Recorded Ascorbic Acid [Vitamin C] 1,000 mg PO DAILY@0800 05/30/13 Paroxetine HCl [Paxil] 20 mg PO DAILY 12/04/14 Multivitamins,Therapeutic 1 tablet PO DAILYCM tablet 03/12/16 [Multivitamin] Amlodipine [Norvasc] 5 mg PO DAILY 07/08/17 Insulin Glargine [Lantus SoloStar 20 units SC DAILY 07/08/17 Pen] Insulin Glargine/Lixisenatide 50 unit SQ QHS 12/15/17 [Soliqua 100 Unit-33 Mcg/ml Pen] Pantoprazole Sodium 40 mg PO DAILY 12/15/17 Glucerna Shake 120 ml PO TIDCM liquid 12/20/17 traMADol [Ultram] 50 mg PO BID 3 Days #6 tab 12/20/17 Atorvastatin Calcium [Lipitor] 80 mg PO QHS 02/02/18 Insulin Glargine,Hum.rec.anlog 80 units SQ BID 02/02/18 [Basaglar Kwikpen U-100] Metoprolol Tartrate [Lopressor 12.5 mg PO BID 02/02/18 (Beta Mandeep)] Nystatin Powder [Mycostatin Powder] 1 applicatio TOPICAL BID PRN 02/02/18 Polyethylene Glycol 3350 [Miralax] 17 gm PO BID PRN 02/02/18 Surgical History: noncontributory Psychiatric History: No pertinent psych hx Lives: Spouse/ Significant Other Smoking Status: Former smoker Tobacco Use: Non-smoker Alcohol: None Drugs: None - *Family History Maternal History Items: No pertinent history Paternal History Items: No pertinent history Review of Systems Constitutional: Reports: Chills, Night Sweats. Denies: Fever, Weight Change HEENT: Denies: Head Aches, Sinus Congestion, Sinus Drainage Cardiovascular: Denies: Chest Pain, Chest Pressure, Chest Tightness, Edema, Heaviness, Light Headedness, Palpitations, Paroxysmal Noc. Dyspnea, Syncope Respiratory: Reports: Shortness of Breath, Shortness of breath at rest, Shortness of breath upon exertion. Denies: Cough, Hemoptysis, Pleuritic Pain, Sputum production, Wheezing Gastrointestinal: Denies: Abdominal Pain, Nausea, Vomiting Genitourinary: Denies: Dysuria Musculoskeletal: Denies: Joint Pain, Joint Tenderness Skin: Denies: Rash, Wounds Neurological: Denies: Numbness, Tingling, Focal weakness Psychiatric: Denies: Anxiety, Depression, Homicidal Ideations, Suicidal Ideations Hematologic/ Lymphatic: Denies: Easy Bruising, Easy Bleeding VTE Information - Inpt Only VTE Present on Admission: No VTE Mechan Device Prophylaxis: SCD's VTE Pharm Prophylaxis ordered?: No Reason prophylaxis not ordered:: Medical Contraindication - Physical Exam General: Alert, Oriented x3, Cooperative HEENT: Atraumatic, PERRLA, EOMI, Normocephalic Neck: Supple, No JVD, Negative Carotid Bruits Lungs: Clear to auscultation, Normal air movement Cardiovascular: Regular rate, No murmurs Abdomen: Bowel Sounds Present, Soft, Non Tender, Obese Extremities: No edema, Capillary Refill Less than 3 Seconds Skin: No rashes, No breakdown Musculoskeletal: No Tenderness to Palpation of Joints or Extremities Neurological: Cranial nerves II-XII grossly intact Psych/Mental Status: Normal Affect, Appropriate, Alert and oriented to time, place, person, mood and affect Vital Signs Temp Pulse Resp BP Pulse Ox 98.9 F 73 22 H 114/67 92 02/02/18 10:58 02/02/18 15:16 02/02/18 15:16 02/02/18 15:16 02/02/18 15:16 Assessment/Plan 1. Increased SOB worse with exertion - etiology unclear. -SOB, but no cough, lungs clear on exam. -CXR negative. BNP neg. VQ scan neg. -no GI symproms, no urinary symptoms -Does have elevated white count, and reported chills and night sweats, however he is afebrile. -On presentation was 95% on RA. -Troponin is elevated and he did have severe heartburn 2 days ago, may be angina equivalent. Currently no CP, heaviness, tightness, palp, LH, dizziness. EKG is normal. Cycle enzymes, repeat EKG, maintain on tele. -Provide aerosols and IS. -CO2 normal. -Check ketone level, gap is normal tho -last echo 11/2017 with EF 60%, stage 1 diastolic dysfxn 2. MEGAN on CKD III, with hyponatremia - Provide IV hydration 3. NHL with known brain mets - chemo at next week. 4. Hx CVA - on statin, no asa likely 2/2 hx cerebral hemorrhage. 5. Hx cerebral hemorrhage on xarelto and lovenox - no anticoagulation 6. DMt2 - poorly controlled. 388 on BMP. Check ketone level as above. Continue long and short acting. 7. HTN - stable DVT ppx: SCDs DC planning: PTOT. recently DC'd from SNF Patient was seen by Kishore Rodríguez PA-C under the supervision of Dr. Fernandez. <Brandt Fernandez - Last Filed: 02/02/18 17:28> History of Present Illness The patient came to ER with shortness of breath and dyspnea even on minimal exertion for last 3 days and hypoxia. Patient has known history of NHL with brain metastases, DVT with history of intracerebral hemorrhage on Xarelto. Also complained of chills and sweating last night. Agree with above note [] Past Medical History Allergies niacin Allergy (Verified 02/02/18 10:58) Hives piroxicam [From Feldene] Adverse Reaction (Verified 02/02/18 10:58) Upset Stomach rivaroxaban [From Xarelto] Adverse Reaction (Verified 02/02/18 10:58) BRAIN BLEED - Physical Exam HEENT: Atraumatic, PERRLA, EOMI, Normocephalic Neck: Supple, No JVD, Negative Carotid Bruits Lungs: Clear to auscultation, Normal air movement, No rhonchi, No wheeze Cardiovascular: Normal S1, Normal S2, No murmurs Musculoskeletal: Arthritic Changes Vital Signs Temp Pulse Resp BP Pulse Ox 98.0 F 69 18 113/71 96 02/02/18 15:52 02/02/18 16:09 02/02/18 15:52 02/02/18 15:52 02/02/18 15:52 Oxygen Flow Rate (L/min) 3 Oxygen Delivery Method Nasal Cannula Weight: 309 lb 6.4 oz Body Mass Index (BMI) 43.1 POC Glucose 02/02/18 16:22 POC Glucose 346 H Assessment/Plan This patient was seen in conjunction with Kishore ROSAS. I have independently interviewed and examined the patient and reviewed pertinent history, examination findings, laboratory and plan of management. I have reviewed the note and agree with the documented findings with the few additional points. In brief, patient is admitted for shortness of breath and hypoxia over 3 days. Patient said shortness of breath getting worse for last 3 days even with minimal exertion. Workup in the ER is negative for the cause of hypoxia including chest x-ray and VQ scan. CT chest without IV contrast ordered to look for atelectasis or pneumonia or possible mass in view of NHL. I have discussed my assessment with Kishore ROSAS and orders have been reviewed. Code Visit Inpatient E&M: 39067 Init Hosp L3
[2018-02-02 16:26] LABS: Bedside Glucose 346 mg/dL (70-110)
--- NOTE | 2018-02-02 16:39 | NURSING ---
Unable to complete home medication rec. due to patient not knowing his medications. This RN attempted to reach Ariella at [phone] and message left to return call to update med list.
[2018-02-02] MEDS: 0.9% Normal Saline 1,000 ML 100 ML IV (18:08)
[2018-02-02] MEDS: 0.9% NaCl Peripheral Flush Adult/Peds IV (18:08)
[2018-02-02] MEDS: Glucerna Shake 120 ML LIQUID PO (18:09)
[2018-02-02] MEDS: Insulin Lispro 100 UNIT/ML INSULN.PEN SC ×2 (18:15→21:54)
[2018-02-02] MEDS: Ipratropium/Albuterol Sulfate 3 ML AMPUL.NEB INHALATION (19:39)
[2018-02-02] MEDS: Menthol/Lanolin/Calamine/Znox 113 GM Tube 1 APPLIC TOPICAL (21:53)
[2018-02-02] MEDS: Doxycycline 100 MG CAPSULE PO (21:53)
[2018-02-02] MEDS: Insulin Lispro 100 UNIT/ML INSULN.PEN 7 UNIT SC (21:54)
[2018-02-02] MEDS: Metoprolol Tartrate 25 MG Tablet 12.5 MG PO (21:55)
[2018-02-02 22:06] LABS: Bedside Glucose 460 mg/dL (70-110)
--- NOTE | 2018-02-02 22:57 | NURSING ---
This RN taking over care at this time.
[2018-02-03] VITALS (18 sets, daily range): BP systolic 112–137; BP diastolic 49–78; PULSE 63–101; RESP 16–20; TEMP 36.4–37.2; O2SAT 93–99; BMI 43.1
[2018-02-03] MEDS: 0.9% Normal Saline 1,000 ML 100 ML IV ×3 (03:23→22:42)
--- NOTE | 2018-02-03 05:56 | NURSING ---
All charting completed by SN Nery reviewed by this RN. This RN agrees with documentation - 02/03
[2018-02-03 06:35] LABS: Absolute Lymphocyte Count 0.34 X10^3/ul (0.83-4.51); Absolute Neutrophil Count 6.7 X10^3/uL (2.0-7.7); Hematocrit 41.4 % (40-54); Hemoglobin 13.4 g/dl (13.0-16.5); Lymphocyte # 0.34 X10^3/ul (4.0); Lymphocyte % 4.6 % (19-41); Mean Corp Hgb Conc 32.4 g/gl (32-36); Mean Corpuscular Hgb 26.7 pg (27.0-32.0); Mean Corpuscular Volume 82.6 fL (80-94); Mean Platelet Vol. 9.8 fl (6.2-12.0); Monocyte# 0.38 X10^3/uL; Monocyte% 5.1 % (0-10); Neutrophil # 6.73 X10^3/uL (2.7-7.7); Platelet Count 55 K/mm3 (150-450); RBC Distribution Width CV 16.5 % (11.6-14.6); RBC Distribution Width SD 49.7 fl (35.1-43.9); Red Blood Count 5.01 M/mm3 (4.6-6.2); White Blood Count 7.5 K/mm3 (4.4-11.0)
[2018-02-03 06:38] LABS: Differential Indicated SCAN CRITERIA MET; POSITIVE COUNT NO; POSITIVE DIFFERENTIAL YES; POSITIVE MORPHOLOGY NO
[2018-02-03 06:52] LABS: Anion Gap 8 (5-15); BUN 43 mg/dL (7-18); BUN/Creat Ratio 22.8 RATIO (10-20); Chloride 96 mmol/L (98-107); Creatinine, Serum 1.89 mg/dL (0.70-1.30); EST Glomerular Filtration Rate 38 mL/min (>60); Est Glom Filt Rate - Afr Amer 46 mL/min (>60); Estimated Creatinine Clearance 39.84 ml/min; Glucose 302 mg/dL (74-106); Potassium 4.3 mmol/L (3.5-5.1); Sodium Level 132 mmol/L (136-145)
[2018-02-03] MEDS: Ipratropium/Albuterol Sulfate 3 ML AMPUL.NEB INHALATION ×3 (07:21→19:30)
[2018-02-03] MEDS: Insulin Lispro 100 UNIT/ML INSULN.PEN SC ×4 (09:15→22:50)
[2018-02-03] MEDS: Glucerna Shake 120 ML LIQUID PO ×2 (09:16→17:04)
[2018-02-03] MEDS: Insulin Lispro 100 UNIT/ML INSULN.PEN 8 UNIT SC ×2 (09:16→11:32)
[2018-02-03] MEDS: Multivitamins,Therapeutic Tablet 1 TABLET PO (09:16)
[2018-02-03] MEDS: Metoprolol Tartrate 25 MG Tablet 12.5 MG PO ×2 (09:17→22:43)
[2018-02-03] MEDS: Pantoprazole Sodium 40 MG Tablet PO (09:17)
[2018-02-03] MEDS: Furosemide 40 MG Tablet PO (09:17)
[2018-02-03] MEDS: Doxycycline 100 MG CAPSULE PO ×2 (09:17→22:44)
[2018-02-03] MEDS: Allopurinol 100 MG Tablet PO (09:17)
[2018-02-03] MEDS: Menthol/Lanolin/Calamine/Znox 113 GM Tube 1 APPLIC TOPICAL ×2 (09:17→22:42)
[2018-02-03] MEDS: amLODIPine 5 MG Tablet PO (09:17)
--- NOTE | 2018-02-03 11:04 | PCM.PN.HOSP ---
Subjective: Patient seen and examined. Chart reviewed. History of non-Hodgkin's lymphoma with brain metastases, G for radiation therapy next week in [facility], recently discharged from a care home facility after a one-month stay. He was at home for about 5 days when he started having progressive shortness of breath. Workup so far has been negative for PE. He is reportedly positive for a left lower extremity acute DVT and chronic right DVT. He denies chest pain, worsening SOB, dizziness, palpitations. Vitals/I&O's: Vital Signs Temp Pulse Resp BP Pulse Ox 98.8 F 99 20 H 127/59 H 95 02/03/18 09:30 02/03/18 09:30 02/03/18 09:30 02/03/18 09:30 02/03/18 09:30 Oxygen Flow Rate (L/min) 1 Oxygen Delivery Method Nasal Cannula Weight: 140.341 kg Body Mass Index (BMI) 43.1 Intake and Output for Last 24 Hours 02/01/18 02/02/18 02/03/18 23:59 23:59 23:59 Intake Total 1320.4 / 1320.4 497 / 497 Balance 1320.4 / 1320.4 497 / 497 General: Alert, Oriented x3, Cooperative, No apparent distress HEENT: Atraumatic, PERRLA, EOMI, Normocephalic Oral: Moist Mucosa Neck: Supple Lungs: Clear to auscultation, Normal air movement Cardiovascular: Regular rate, Regular Rhythm, Normal S1, Normal S2, No murmurs Abdomen: Bowel Sounds Present, Soft, Non Tender, Non-Distended, No Hepato-splenomegaly Extremities: No edema Skin: No rashes, No breakdown Musculoskeletal: No Tenderness to Palpation of Joints or Extremities Lymphatic: No Cervical, Supraclavicular, or Inguinal Adenopathy Neurological: Cranial nerves II-XII grossly intact, Neuro grossly intact Psych/Mental Status: Normal Affect, Appropriate Laboratory Results 02/02/18 16:22: POC Glucose 346 H 02/02/18 17:10: Troponin I 0.037 02/02/18 18:58: Troponin I 0.031 02/02/18 21:42: POC Glucose 460 H* 02/03/18 06:00: WBC 7.5, RBC 5.01, Hgb 13.4, Hct 41.4, MCV 82.6, MCH 26.7 L, MCHC 32.4, RDW 16.5 H, RDW Differential 49.7 H, Plt Count 55 L, MPV 9.8, Immature Gran % (Auto) 0.300, Neut % (Auto) 90.0 H, Lymph % (Auto) 4.6 L, [place] % (Auto) 5.1, Eos % (Auto) 0.0, Baso % (Auto) 0.0, Absolute Neuts (auto) 6.7, Absolute Lymphs (auto) 0.34 L, Total Counted Not Reportable 02/03/18 06:00: Sodium 132 L, Potassium 4.3, Chloride 96 L, Carbon Dioxide 28.0, Anion Gap 8, BUN 43 H, Creatinine 1.89 H, Estim Creat Clear Calc 39.84, Est GFR (MDRD) Af Amer 46 L, Est GFR (MDRD) Non-Af 38 L, BUN/Creatinine Ratio 22.8 H, Glucose 302 H, Calcium 8.0 L Current Medications Albuterol Sulfate (Ventolin Aerosols) 2.5 mg INHALATION Q2H PRN PRN PRN Reason: SOB &/OR WHEEZING Albuterol/Ipratropium (Duoneb) 3 ml INHALATION Q4HWA.RT [facility] Last Admin: 02/03/18 07:21 Dose: 3 ml Allopurinol (Zyloprim) 100 mg PO DAILY [facility] Last Admin: 02/03/18 09:17 Dose: 100 mg Amlodipine Besylate (Norvasc) 5 mg PO DAILY [facility] Last Admin: 02/03/18 09:17 Dose: 5 mg Calamine/Phenol (Calmoseptine Ointment) 1 applic TOPICAL BID [facility] PRN Reason: Protocol Last Admin: 02/03/18 09:17 Dose: 1 applic Docusate Sodium (Colace) 100 mg PO BID PRN PRN Reason: Constipation Doxycycline Monohydrate (Doxycycline) 100 mg PO BID [facility] Stop: 02/07/18 22:01 Last Admin: 02/03/18 09:17 Dose: 100 mg Furosemide (Lasix) 40 mg PO DAILY [facility] Last Admin: 02/03/18 09:17 Dose: 40 mg Sodium Chloride () 1,000 mls @ 100 mls/hr IV .Q10H [facility] Last Admin: 02/03/18 03:23 Dose: 100 mls/hr Insulin Glargine (Lantus (Bkc)) 50 units SC QHS [facility] Last Admin: 02/02/18 21:53 Dose: 50 units Insulin Human Lispro (Humalog Kwikpen (Bkc)) 0 unit SC ACHS [facility] PRN Reason: Protocol Last Admin: 02/03/18 09:15 Dose: 6 units Insulin Human Lispro (Humalog Kwikpen (Bkc)) 8 unit SC TIDCM [facility] Last Admin: 02/03/18 09:16 Dose: 8 u Metoprolol Tartrate (Lopressor (Beta Mandeep)) 12.5 mg PO BID [facility] Last Admin: 02/03/18 09:17 Dose: 12.5 mg Multivitamins (Multivitamin) 1 tablet PO DAILYCM [facility] Last Admin: 02/03/18 09:16 Dose: 1 tablet Nutritional Formula (Lactose Free) (Glucerna Shake) 120 ml PO TIDCM [facility] Last Admin: 02/03/18 09:16 Dose: 120 ml Nystatin (Mycostatin Powder) 1 applic TOPICAL BID PRN; Protocol PRN Reason: redness/yeast Pantoprazole Sodium (Protonix) 40 mg PO DAILY [facility] Last Admin: 02/03/18 09:17 Dose: 40 mg Paroxetine HCl (Paxil) 30 mg PO DAILY [facility] Last Admin: 02/03/18 09:17 Dose: 30 mg Polyethylene Glycol (Miralax) 17 gm PO BID PRN PRN Reason: Constipation Sodium Chloride () 5 - 30 ml IV UD PRN PRN Reason: SALINE FLUSH Last Admin: 02/02/18 18:08 Dose: 10 ml Tramadol HCl (Ultram) 50 mg PO Q6H PRN PRN PRN Reason: PAIN Medical Necessity - Tobacco Use Smoking Status: Former smoker Tobacco Use: Cigarettes, Cigars, Pipe Assessment/Plan 67-year-old male with multiple comorbidities comes seen with shortness of breath 1. Acute hypoxic respiratory failure, unclear etiology, Less likely from CHF, PE, suspect obesity hypoventilation syndrome, will continue to encourage use of incentive spirometer. 2. Reported acute left leg DVT, patient has history of intracerebral bleed 5 years ago, cannot anticoagulate, vascular surgery-Dr. Calvillo consult for possible IVC filter. 3. MEGAN on CKD stage III, improving, will continue on IV fluids 4. History of CVA, on statin not on aspirin 5. NHL with brain metastases, following with oncology next week 6. Type II DM, poorly controlled, on Lantus 15 units nightly, will increase pre-meal insulin to 110 units TID, continue with Accu-Cheks and insulin sliding scale 7. Hypertension, controlled 8. DVT PPx- SCDs Code Visit Inpatient E&M: 64721 Subs Hosp L2
[2018-02-03 11:36] LABS: Bedside Glucose 361 mg/dL (70-110)
[2018-02-03 11:40] LABS: Bedside Glucose 362 mg/dL (70-110)
--- NOTE | 2018-02-03 11:44 | CASEMGMT ---
Face to Face with patient for initial transition planning/care coordination assessment. RN NICHOLAS introduced self and role at [facility], pt voices understanding and consents to assessment at this time. Pt is sitting up in chair in no distress at this time. Pt is A/O x4 at this time and answers all questions appropriately at this time. Care providers, pharmacy, and demographics verified. See attached link. Pt voices no further concerns/needs at this time. Advised pt to ask for CM if any further questions/concerns/needs arise, voices understanding. CM to follow for any further discharge planning/needs. PLAN: MANUELD Ori RN NICHOLAS
--- NOTE | 2018-02-03 13:49 | CON.PCM_ITS ---
Problem List (1) Acute DVT (deep venous thrombosis) Status: Acute (2) History of DVT (deep vein thrombosis) Status: Chronic Reason for Consult Date of Consultation: 02/03/18 Reason for Consultation: Acute left lower extremity DVT. Chronic right lower extremity DVT. History of ICH. Anticoagulation is contraindicated. History of Present Illness: The patient is a 67 year old M who presents with a 3 day history of worsening shortness of breath. Patient denies home oxygen. He denies chest pain. He has a history of chronic right lower extremity DVT. Patient has a history of non- Hodgkin's lymphoma with metastasis to the brain. He was diagnosed approximately 5 years ago. He found out he had brain metastasis recently. He is scheduled to go to for chemotherapy next Wednesday. Patient noted he had a right IJ port-a- cath placement at [facility] [place] when he started chemotherapy approximately 5 years ago. Patient denies complications or issues with the port. He also has a history of left testicular cancer. He had a left orchiectomy in 1990. Patient also has a history of intracranial bleed. Patient was visiting family in [place] approximately 5 years ago. He had a fall. He did not lose consciousness. He noted him and his drove home. He fell asleep and then next thing he knew he was in [facility]. He noted having a drain placed. He denies having any memory of driving home. He has a history of stroke. He denies myocardial infarction. He notes cardiac stent placement in 2001. Dr. Villafana is his blood bank booking clerk. Patient also states he was recently in [facility] last month after having a fall. Per [facility] records, patient suffered from a hypoglycemia event. He was discharged same day. Patient seems as though he has difficulty remembering dates and time frame of events. he does note he is unable to drive due to the brain mets from the non-Hodgkin lymphoma. Patient had a chest CT in the ED which was unremarkable for pulmonary embolism. Venous Doppler was obtained today with preliminary read demonstrating chronic clot in the mid/Dist femoral vein of the right lower extremity. Left lower extremity demonstrates an acute soleus vein DVT. Patient notes he has had a chronic clot in the right lower extremity for 5 years at least. Today's labs: WBC 7.5, Hgb 13.4, Hct 41.4, Plt 55. Creat. 1.89, BUN 43. Past Medical History Past Medical History (Chronic Problems): Chronic Problems CKD (chronic kidney disease), stage III (Chronic) Weakness (Chronic) CVA (cerebral vascular accident) (Chronic) Brain metastases (Chronic) Pancytopenia (Chronic) Non Hodgkin's lymphoma (Chronic) Hypertension (Chronic) Morbid obesity (Chronic) History of DVT (deep vein thrombosis) (Chronic) Diabetes mellitus (Chronic) Hyperlipidemia (Chronic) Allergies niacin Allergy (Verified 02/02/18 10:58) Hives piroxicam [From Feldene] Adverse Reaction (Verified 02/02/18 10:58) Upset Stomach rivaroxaban [From Xarelto] Adverse Reaction (Verified 02/02/18 10:58) BRAIN BLEED Home Medications: Ambulatory Orders Medication Instructions Recorded Ascorbic Acid [Vitamin C] 1,000 mg PO DAILY@0800 05/30/13 Paroxetine HCl [Paxil] 30 mg PO DAILY 12/04/14 Multivitamins,Therapeutic 1 tablet PO DAILYCM tablet 03/12/16 [Multivitamin] Amlodipine [Norvasc] 5 mg PO DAILY 07/08/17 Insulin Glargine [Lantus SoloStar 50 units SC QHS 07/08/17 Pen] Insulin Glargine/Lixisenatide 50 unit SQ DAILY 12/15/17 [Soliqua 100 Unit-33 Mcg/ml Pen] Pantoprazole Sodium 40 mg PO DAILY 12/15/17 Allopurinol [Zyloprim] 300 mg PO DAILY 02/02/18 Atorvastatin Calcium [Lipitor] 80 mg PO QHS 02/02/18 Docusate Sodium [Dok] 100 mg PO BID PRN 02/02/18 Doxycycline Hyclate [Doxycycline 100 mg PO BID 02/02/18 Hyclate] Furosemide [Furosemide] 40 mg PO DAILY 02/02/18 Insulin Lispro [Humalog KwikPen] 5 units SC TIDCM 02/02/18 Insulin Lispro [Humalog KwikPen] See Protocol SC TIDCM 02/02/18 Metoprolol Tartrate [Lopressor 12.5 mg PO BID 02/02/18 (Beta Mandeep)] Nystatin Powder [Mycostatin Powder] 1 applicatio TOPICAL BID PRN 02/02/18 Polyethylene Glycol 3350 [Miralax] 17 gm PO BID PRN 02/02/18 traMADol [Ultram (G)] 50 mg PO Q6H PRN PRN 02/02/18 Surgical History: noncontributory, - - Orchiectomy, left in ; Cardiac stent placed in 2001; Right IJ port placed 5 years ago Psychiatric History: No pertinent psych hx Lives: Spouse/ Significant Other Smoking Status: Former smoker Tobacco Use: Cigarettes, Cigars, Pipe Alcohol: None Drugs: None - *Family History Maternal History Items: No pertinent history Paternal History Items: No pertinent history Review of Systems Constitutional: Reports: Weakness, Fatigue HEENT: Denies: Head Aches, Sinus Congestion, Sinus Drainage Cardiovascular: Denies: Chest Pain, Palpitations Respiratory: Reports: Shortness of Breath Gastrointestinal: Denies: Abdominal Pain, Nausea, Vomiting Genitourinary: Denies: Dysuria Musculoskeletal: Reports: Joint Pain. Denies: Joint Tenderness Skin: Denies: Rash, Wounds Neurological: Denies: Numbness, Tingling, Focal weakness Psychiatric: Denies: Anxiety, Depression, Homicidal Ideations, Suicidal Ideations Hematologic/ Lymphatic: Reports: Hx of blood clot, - - Hx ICH Patient Problems: Active and Suspected Problems Acute DVT (deep venous thrombosis) (Acute) - Physical Exam General: Alert, Oriented x3, Cooperative, - - Obese HEENT: Atraumatic, PERRLA, EOMI, Normocephalic Neck: Supple, No JVD, Negative Carotid Bruits, - - Right IJ port-a-cath placed. Thick neck Lungs: Clear to auscultation, Normal air movement Cardiovascular: Regular rate, No murmurs Abdomen: Bowel Sounds Present, Soft, Non Tender, Obese Extremities: Edema - 1+ Skin: No rashes Musculoskeletal: No Tenderness to Palpation of Joints or Extremities Neurological: Neuro grossly intact Psych/Mental Status: Appropriate, Flat Affect Vital Signs Temp Pulse Resp BP Pulse Ox 98.8 F 70 18 127/59 H 96 02/03/18 09:30 02/03/18 11:18 02/03/18 11:18 02/03/18 09:30 02/03/18 11:18 Oxygen Flow Rate (L/min) 1.5 Oxygen Delivery Method Nasal Cannula Weight: 309 lb 6.4 oz Body Mass Index (BMI) 43.1 Intake and Output for Last 24 Hours 02/01/18 02/02/18 02/03/18 23:59 23:59 23:59 Intake Total 1320.4 / 1320.4 2010 Balance 1320.4 / 1320.4 2010 Laboratory Tests Past 24 Hrs 02/02/18 02/02/18 02/03/18 17:10 18:58 06:00 WBC 7.5 RBC 5.01 Hgb 13.4 Hct 41.4 MCV 82.6 MCH 26.7 L MCHC 32.4 RDW 16.5 H RDW Differential 49.7 H Plt Count 55 L MPV 9.8 Immature Gran % (Auto) 0.300 Neut % (Auto) 90.0 H Lymph % (Auto) 4.6 L [place] % (Auto) 5.1 Eos % (Auto) 0.0 Baso % (Auto) 0.0 Absolute Neuts (auto) 6.7 Absolute Lymphs (auto) 0.34 L Total Counted Not Reportable Sodium Potassium Chloride Carbon Dioxide Anion Gap BUN Creatinine Estim Creat Clear Calc Est GFR (MDRD) Af Amer Est GFR (MDRD) Non-Af BUN/Creatinine Ratio Glucose Calcium Troponin I 0.037 0.031 02/03/18 06:00 WBC RBC Hgb Hct MCV MCH MCHC RDW RDW Differential Plt Count MPV Immature Gran % (Auto) Neut % (Auto) Lymph % (Auto) [place] % (Auto) Eos % (Auto) Baso % (Auto) Absolute Neuts (auto) Absolute Lymphs (auto) Total Counted Sodium 132 L Potassium 4.3 Chloride 96 L Carbon Dioxide 28.0 Anion Gap 8 BUN 43 H Creatinine 1.89 H Estim Creat Clear Calc 39.84 Est GFR (MDRD) Af Amer 46 L Est GFR (MDRD) Non-Af 38 L BUN/Creatinine Ratio 22.8 H Glucose 302 H Calcium 8.0 L Troponin I POC Glucose 02/03/18 02/03/18 02/02/18 11:30 06:41 21:42 POC Glucose 362 H 361 H 460 H* 02/02/18 16:22 POC Glucose 346 H Assessment/Plan All Active Problems Acute DVT (deep venous thrombosis) (Acute) I have been consulted in conjunction with Dr. Calvillo. He will independently evaluate this patient Impression: Chronic right lower extremity DVT. Acute left lower extremity DVT. History of ICH. Anticoagulation contraindicated. Plan: Dr. Calvillo will plan to perform Right inferior vena cava placement. Procedure details, risks and benefits have been explained to the patient. Patient has had the opportunity to ask and have questions answered. Patient verbally understands and agrees to proceed with the proposed procedure. Patient did eat lunch today. NPO order was not placed in time. Thank you for allowing me to participate in this patient's care. My recommendations will be made available via electronic medical records. Code Visit Office Visits / Consults: [id number] IP Consult L1 - No charge; IVC filter placed same day by Dr. Calvillo
--- NOTE | 2018-02-03 14:21 | NURSING ---
VERBAL REPORT GIVEN TO SARITA IN [employer]
[2018-02-03] MEDS: Cefazolin 2 GM in 0.9% Normal Saline 100 ML IV (16:41)
--- NOTE | 2018-02-03 16:43 | PCM.OPRPT ---
Problem List (1) Acute DVT (deep venous thrombosis) Status: Acute Qualifiers: DVT location: lower extremity Affected thrombotic vein of extremity: other lower extremity vein Laterality: left Qualified Code(s): I82.492 - Acute embolism and thrombosis of other specified deep vein of left lower extremity Report of Operation Date of Procedure: 02/03/18 Pre-Operative Diagnosis: Shortness of breath and chronic deep venous thrombosis right femoral vein and acute thrombosis left soleus vein Post-Operative Diagnosis: Same plus normal inferior vena cava Surgery/Procedure Performed:: Inferior venacavogram with inferior vena cava Summer filter placement Description of Surgical Findings:: Timeout and informed consent was obtained. 57-year-old gentleman was taken to the special procedures lab placed upon the table. Because he had lunch no sedative was given. The right neck was sterilely prepped and draped. Under ultrasound guidance right internal jugular vein was identified. Under ultrasound guidance 2% lidocaine was instilled with 30-gauge needle and then a 25-gauge needle. Micropuncture needle was used to gain access to the right internal jugular jugular vein under ultrasound guidance. Micropuncture wire inserted. Micropuncture sheath inserted. 035 J-wire was inserted. A micropuncture sheath was removed and a 5 [place] sheath data was inserted. Using a 035 J-wire a 5 [place] universal flush catheter was placed in the right proximal common iliac vein. Using Isovue contrast diluted at the rate of 15 cc a second for 20 cc totaling approximately 16 cc of contrast a inferior venacavogram was obtained. The inferior venacavogram demonstrates a unremarkable proximal right common iliac and left external external iliac. The distal inferior vena cava is well outlined and is unremarkable without thrombus. The positioning of the left renal vein is felt to been identified with a blush. There is no gross thrombus noted and the vena cava appear to be of adequate dimension for filter placement. Over the J-wire the sheath was removed. The tract was dilated with a 9 [place] sheath. The 8 [place] delivery mechanism was inserted over the J-wire. The filter was then deployed ensuring that the hope is on on fast view. Good positioning was achieved. The delivery mechanism was removed. The filter appeared to be upright. The sheath was then carefully removed continuously watching the previous tubing of the right IJ port. There was no disruption of the tubing and the sheath was successfully removed. He tolerated procedure well no apparent complication blood loss was minimal he was taken back to recovery in satisfactory condition. Summer vena cava filter. Jugular subclavian approach. Reference number [id number]. Lot number [id number]. Expiry date 11/19/2019 Hira Calvillo M.D., F.A.C.S. Type of Anesthesia:: Local
[2018-02-03] MEDS: Insulin Lispro 100 UNIT/ML INSULN.PEN 10 UNIT SC (17:04)
[2018-02-03 17:21] LABS: Bedside Glucose 312 mg/dL (70-110)
[2018-02-03 23:00] LABS: Bedside Glucose 266 mg/dL (70-110)
[2018-02-04] VITALS (19 sets, daily range): BP systolic 116–133; BP diastolic 36–62; PULSE 68–91; RESP 12–23; TEMP 36.6–36.9; O2SAT 92–99
[2018-02-04] MEDS: Albuterol 2.5 MG/3 ML VIAL.NEB. INHALATION (01:30)
[2018-02-04 06:55] LABS: Bedside Glucose 181 mg/dL (70-110)
[2018-02-04] MEDS: Ipratropium/Albuterol Sulfate 3 ML AMPUL.NEB INHALATION ×3 (07:09→14:47)
--- NOTE | 2018-02-04 07:31 | PCM.PN.HOSP ---
Patient Problems: Active and Suspected Problems Acute DVT (deep venous thrombosis) (Acute) Subjective: Patient was seen and examined. Feels slightly short of breath. Denies any chest pain no dizziness or palpitation. Denies any fever or chills. States he feels slightly better. Vitals/I&O's: Vital Signs Temp Pulse Resp BP Pulse Ox 98.4 F 72 18 118/62 94 02/04/18 05:00 02/04/18 05:00 02/04/18 05:00 02/04/18 05:00 02/04/18 05:00 Oxygen Flow Rate (L/min) 2 Oxygen Delivery Method Nasal Cannula Weight: 140.341 kg Body Mass Index (BMI) 43.1 Intake and Output for Last 24 Hours 02/02/18 02/03/18 02/04/18 23:59 23:59 23:59 Intake Total 1320.4 / 1320.4 2712 / 2712 1107 / 1107 Output Total 400 / 400 338 / 338 Balance 1320.4 / 1320.4 2312 / 2312 769 / 769 Laboratory Results 02/03/18 06:41: POC Glucose 361 H 02/03/18 11:30: POC Glucose 362 H 02/03/18 17:03: POC Glucose 312 H 02/03/18 22:50: POC Glucose 266 H 02/04/18 06:44: POC Glucose 181 H Current Medications Albuterol Sulfate (Ventolin Aerosols) 2.5 mg INHALATION Q2H PRN PRN PRN Reason: SOB &/OR WHEEZING Last Admin: 02/04/18 01:30 Dose: 2.5 mg Albuterol/Ipratropium (Duoneb) 3 ml INHALATION Q4HWA.RT [facility] Last Admin: 02/04/18 07:09 Dose: 3 ml Allopurinol (Zyloprim) 100 mg PO DAILY [facility] Last Admin: 02/03/18 09:17 Dose: 100 mg Amlodipine Besylate (Norvasc) 5 mg PO DAILY [facility] Last Admin: 02/03/18 09:17 Dose: 5 mg Calamine/Phenol (Calmoseptine Ointment) 1 applic TOPICAL BID ALFA PRN Reason: Protocol Last Admin: 02/03/18 22:42 Dose: 1 applic Docusate Sodium (Colace) 100 mg PO BID PRN PRN Reason: Constipation Doxycycline Monohydrate (Doxycycline) 100 mg PO BID [facility] Stop: 02/07/18 22:01 Last Admin: 02/03/18 22:44 Dose: 100 mg Furosemide (Lasix) 40 mg PO DAILY [facility] Last Admin: 02/03/18 09:17 Dose: 40 mg Sodium Chloride () 1,000 mls @ 100 mls/hr IV .Q10H [facility] Last Admin: 02/03/18 22:42 Dose: 100 mls/hr Insulin Glargine (Lantus (Bkc)) 50 units SC QHS [facility] Last Admin: 02/03/18 22:45 Dose: 50 units Insulin Human Lispro (Humalog Kwikpen (Bkc)) 0 unit SC ACHS [facility] PRN Reason: Protocol Last Admin: 02/03/18 22:50 Dose: 3 units Insulin Human Lispro (Humalog Kwikpen (Bkc)) 10 unit SC TIDCM [facility] Last Admin: 02/03/18 17:04 Dose: 10 u Metoprolol Tartrate (Lopressor (Beta Mandeep)) 12.5 mg PO BID [facility] Last Admin: 02/03/18 22:43 Dose: 12.5 mg [facility]it[facility] ([facility]amin) [facility] Last Admin: 02/03/18 09:16 Dose: 1 tablet Nutritional Formula (Lactose Free) (Glucerna Shake) 120 ml PO TIDCM [facility] Last Admin: 02/03/18 17:04 Dose: 120 ml Nystatin (Mycostatin Powder) 1 applic TOPICAL BID PRN; Protocol PRN Reason: redness/yeast Pantoprazole Sodium (Protonix) 40 mg PO DAILY [facility] Last Admin: 02/03/18 09:17 Dose: 40 mg Paroxetine HCl (Paxil) 30 mg PO DAILY [facility] Last Admin: 02/03/18 09:17 Dose: 30 mg Polyethylene Glycol (Miralax) 17 gm PO BID PRN PRN Reason: Constipation Sodium Chloride () 5 - 30 ml IV UD PRN PRN Reason: SALINE FLUSH Last Admin: 02/02/18 18:08 Dose: 10 ml Tramadol HCl (Ultram) 50 mg PO Q6H PRN PRN PRN Reason: PAIN Medical Necessity - Tobacco Use Smoking Status: Former smoker Tobacco Use: Cigarettes, Cigars, Pipe Assessment/Plan All Active Problems Acute DVT (deep venous thrombosis) (Acute) 67-year-old male with multiple comorbidities admitted with shortness of breath. 1. Acute hypoxic respiratory failure, likely from atelectasis, obesity, Less likely from CHF, PE, possibly obesity hypoventilation syndrome, will continue to encourage use of incentive spirometer. Pulmo consulted- appreciate recommendations. 2. Acute left leg DVT, history of intracerebral bleed 5 years ago, s/p IVC filter by vascular surgery. 3. MEGAN on CKD stage III, Cr is slightly elevated compared to prior, increase from 1.89 to 1.93, will repeat BMP in am 4. Possible Sleep disordered breathing, pulmo consulted, recommended Bipap at night, sleep study in outpatient 5. History of CVA, on statin not on aspirin 6. NHL with brain metastases, following with oncology next week 7. Type II DM, poorly controlled, on Lantus 15 units nightly, will increase pre-meal insulin to 110 units TID, continue with Accu-Cheks and insulin sliding scale 8. Hypertension, controlled 9. DVT PPx- SCDs 10. Disposition: DC to [facility] in the next 24-48hrs Code Visit Inpatient E&M: 86098 Subs Hosp L2
[2018-02-04] MEDS: Insulin Lispro 100 UNIT/ML INSULN.PEN SC ×4 (09:58→21:27)
--- NOTE | 2018-02-04 09:59 | CASEMGMT ---
RN NICHOLAS Note. Intro role of CM to patient in room. He states he was having difficulty @ home. Had been to [facility] recently and would like to return on dc. PT/OT to see patient today. LILY PETERSON noted pt continues to have conversational dyspnea. Is on oxygen 2L DARIN. Matthew, updated. Guerrero OVERTONN LILY ACM
[2018-02-04] MEDS: Glucerna Shake 120 ML LIQUID PO ×3 (10:00→17:19)
[2018-02-04] MEDS: 0.9% Normal Saline 1,000 ML 100 ML IV (10:01)
[2018-02-04] MEDS: Multivitamins,Therapeutic Tablet 1 TABLET PO (10:02)
[2018-02-04] MEDS: Menthol/Lanolin/Calamine/Znox 113 GM Tube 1 APPLIC TOPICAL ×2 (10:02→21:18)
[2018-02-04] MEDS: Insulin Lispro 100 UNIT/ML INSULN.PEN 10 UNIT SC ×3 (10:02→17:20)
[2018-02-04] MEDS: Doxycycline 100 MG CAPSULE PO ×2 (10:03→21:23)
[2018-02-04] MEDS: Pantoprazole Sodium 40 MG Tablet PO (10:03)
[2018-02-04] MEDS: Furosemide 40 MG Tablet PO (10:03)
[2018-02-04] MEDS: Metoprolol Tartrate 25 MG Tablet 12.5 MG PO ×2 (10:04→21:23)
[2018-02-04] MEDS: Allopurinol 100 MG Tablet PO (10:06)
[2018-02-04] MEDS: amLODIPine 5 MG Tablet PO (10:06)
--- NOTE | 2018-02-04 10:44 | CASEMGMT ---
LILY PETERSON told JOELLE patient wants to return to [facility]. Per physician's notes he will be getting chemo. JOELLE obtained patient's Oncologist's contact number (Dr Ata Seymour with [facility] [phone]). JOELLE spoke with Susan at Dr Seymour's office and patient will be participating in a clinical trial. He will have appts, but this will be paid for by the clinical trial not his insurance. She said as far as she can see in his chart he will not be getting any treatment outside of the clinical trial unless something else would come up. She will call JOELLE back with dates. JOELLE will check with patient on transportation to these appointments. JOELLE called [facility] and left a message with referral as well as faxed over referral information. Await return call. Susan PARADA
[2018-02-04 10:55] LABS: Absolute Lymphocyte Count 0.49 X10^3/ul (0.83-4.51); Absolute Neutrophil Count 6.2 X10^3/uL (2.0-7.7); Basophil# 0.01 X10^3/uL; Basophil% 0.1 % (0-1); Eosinophil# 0.01 X10^3/uL; Eosinophils% 0.1 % (0-5); Hematocrit 38.2 % (40-54); Hemoglobin 12.8 g/dl (13.0-16.5); Lymphocyte # 0.49 X10^3/ul (4.0); Lymphocyte % 6.8 % (19-41); Mean Corp Hgb Conc 33.5 g/gl (32-36); Mean Corpuscular Hgb 27.4 pg (27.0-32.0); Mean Corpuscular Volume 81.6 fL (80-94); Mean Platelet Vol. 9.6 fl (6.2-12.0); Monocyte# 0.44 X10^3/uL; Monocyte% 6.1 % (0-10); Neutrophil # 6.17 X10^3/uL (2.7-7.7); Neutrophil % 85.5 % (47-70); Platelet Count 85 K/mm3 (150-450); RBC Distribution Width CV 16.7 % (11.6-14.6); RBC Distribution Width SD 49.2 fl (35.1-43.9); Red Blood Count 4.68 M/mm3 (4.6-6.2); White Blood Count 7.2 K/mm3 (4.4-11.0)
[2018-02-04 10:58] LABS: Differential Indicated SCAN CRITERIA MET; POSITIVE COUNT NO; POSITIVE DIFFERENTIAL YES; POSITIVE MORPHOLOGY NO
[2018-02-04 11:02] LABS: Anion Gap 8 (5-15); BUN 39 mg/dL (7-18); BUN/Creat Ratio 20.2 RATIO (10-20); Calcium,Total 7.7 mg/dL (8.5-10.1); Chloride 100 mmol/L (98-107); Creatinine, Serum 1.93 mg/dL (0.70-1.30); EST Glomerular Filtration Rate 37 mL/min (>60); Est Glom Filt Rate - Afr Amer 45 mL/min (>60); Estimated Creatinine Clearance 39.02 ml/min; Glucose 344 mg/dL (74-106); Potassium 4.1 mmol/L (3.5-5.1); Sodium Level 133 mmol/L (136-145)
[2018-02-04 11:50] LABS: Bedside Glucose 267 mg/dL (70-110)
--- NOTE | 2018-02-04 11:57 | PCM.CONS.GEN ---
Reason for Consult Date of Consultation: 02/04/18 Reason for Consultation: Acute hypoxic respiratory insufficiency History of Present Illness: The patient is a 67-year-old male, with a history as outlined below, who presented to the emergency department on February 02 with complaints of shortness of breath. The patient has a history of non-Hodgkin's lymphoma with metastases to the brain. He also has a history of venous thromboembolic disease, with contraindications to the use of oral anticoagulation due to the development of an intracranial bleed. On presentation to the emergency department, the patient was noted to be afebrile hemodynamically stable. He was initially maintaining appropriate oxygen saturations on room air. Initial CBC revealed a mildly elevated white blood cell count with evidence of thrombocytopenia. Chemistry profile revealed hyponatremia/hypochloremia and acute kidney injury with a creatinine of 2.27. Glucose was elevated to 388. Troponin was mildly elevated to 0.059. A VQ scan was obtained which was normal. Subsequent plain film chest x-ray revealed no acute cardiopulmonary process. The patient was admitted to the progressive care unit for further workup. His hospital course has included supplemental IV fluid hydration for his acute kidney injury. A chest CT without contrast was completed on February 02 and revealed no acute cardiopulmonary process, with the exception of dependent atelectasis. Given that the patient had been off of his oral anticoagulation regimen a lower extremity Doppler was obtained and did reveal new onset lower extremity thrombosis, for which the patient underwent IVC filter placement. Surface echocardiogram completed in November 2017 revealed evidence of stage I diastolic dysfunction with preserved ejection fraction. Although I was consulted to evaluate the patient for hypoxia, the documented vital signs, do not indicate an oxygen saturation lower than 93% at any point during his hospitalization. In addition, there is no documentation as to why his supplemental oxygen flow rate was increased today, as he was not noted to be increasingly hypoxic prior to its escalation. The patient has a normal serum bicarbonate level at his baseline. He is currently overall net +5.4 L for the admission. Past Medical History Past Medical History (Chronic Problems): Chronic Problems CKD (chronic kidney disease), stage III (Chronic) Weakness (Chronic) CVA (cerebral vascular accident) (Chronic) Brain metastases (Chronic) Pancytopenia (Chronic) Non Hodgkin's lymphoma (Chronic) Hypertension (Chronic) Morbid obesity (Chronic) History of DVT (deep vein thrombosis) (Chronic) Diabetes mellitus (Chronic) Hyperlipidemia (Chronic) Allergies niacin Allergy (Verified 02/02/18 10:58) Hives piroxicam [From Feldene] Adverse Reaction (Verified 02/02/18 10:58) Upset Stomach rivaroxaban [From Xarelto] Adverse Reaction (Verified 02/02/18 10:58) BRAIN BLEED Home Medications: Ambulatory Orders Medication Instructions Recorded Ascorbic Acid [Vitamin C] 1,000 mg PO DAILY@0800 05/30/13 Paroxetine HCl [Paxil] 30 mg PO DAILY 12/04/14 Multivitamins,Therapeutic 1 tablet PO DAILYCM tablet 03/12/16 [Multivitamin] Amlodipine [Norvasc] 5 mg PO DAILY 07/08/17 Insulin Glargine [Lantus SoloStar 50 units SC QHS 07/08/17 Pen] Insulin Glargine/Lixisenatide 50 unit SQ DAILY 12/15/17 [Soliqua 100 Unit-33 Mcg/ml Pen] Pantoprazole Sodium 40 mg PO DAILY 12/15/17 Allopurinol [Zyloprim] 300 mg PO DAILY 02/02/18 Atorvastatin Calcium [Lipitor] 80 mg PO QHS 02/02/18 Docusate Sodium [Dok] 100 mg PO BID PRN 02/02/18 Doxycycline Hyclate [Doxycycline 100 mg PO BID 02/02/18 Hyclate] Furosemide [Furosemide] 40 mg PO DAILY 02/02/18 Insulin Lispro [Humalog KwikPen] 5 units SC TIDCM 02/02/18 Insulin Lispro [Humalog KwikPen] See Protocol SC TIDCM 02/02/18 Metoprolol Tartrate [Lopressor 12.5 mg PO BID 02/02/18 (Beta Mandeep)] Nystatin Powder [Mycostatin Powder] 1 applicatio TOPICAL BID PRN 02/02/18 Polyethylene Glycol 3350 [Miralax] 17 gm PO BID PRN 02/02/18 traMADol [Ultram (G)] 50 mg PO Q6H PRN PRN 02/02/18 Surgical History: noncontributory, - - Orchiectomy, left in ; Cardiac stent placed in 2001; Right IJ port placed 5 years ago Psychiatric History: No pertinent psych hx Lives: Spouse/ Significant Other Smoking Status: Former smoker Tobacco Use: Cigarettes, Cigars, Pipe Alcohol: None Drugs: None - *Family History Maternal History Items: No pertinent history Paternal History Items: No pertinent history Review of Systems Constitutional: Reports: Weight Change. Denies: Chills, Fever Eyes: Denies: Blurred vision, Double vision HEENT: Denies: Dysphasia, Head Aches, Sinus Congestion, Sinus Drainage Cardiovascular: Denies: Chest Pain, Palpitations Respiratory: Reports: Shortness of Breath. Denies: Cough, Wheezing Gastrointestinal: Denies: Abdominal Pain, Nausea, Vomiting Genitourinary: Reports: Frequency Musculoskeletal: Denies: Joint Pain, Joint Tenderness Skin: Denies: Rash, Wounds Neurological: Denies: Numbness, Tingling, Focal weakness Psychiatric: Denies: Anxiety, Depression, Homicidal Ideations, Suicidal Ideations Hematologic/ Lymphatic: Reports: Hx of blood clot Patient Problems: Active and Suspected Problems Acute DVT (deep venous thrombosis) (Acute) Objective: The patient's most recent lab work, culture data and imaging studies have all been personally reviewed. - Physical Exam General: Alert, Oriented x3, Cooperative, - - Morbidly obese. Sitting in bedside recliner. is present at the bedside. HEENT: Atraumatic, PERRLA, Normocephalic Oral: No Gingival or Mucosal Lesions/ Ulcerations Neck: Supple, No Nodes, Trachea Midline, - - Large neck circumference with redundant soft tissue. Lungs: No rhonchi, No wheeze, No rales, Diminished, - - Speaking in complete sentences. No accessory muscle use. Cardiovascular: Regular rate, Regular Rhythm, Normal S1, Normal S2, No murmurs Abdomen: Bowel Sounds Present, Soft, Non Tender, Obese Extremities: No clubbing, No cyanosis, No edema Skin: No breakdown Musculoskeletal: No Tenderness to Palpation of Joints or Extremities Neurological: Neuro grossly intact Psych/Mental Status: Alert and oriented to time, place, person, mood and affect Vital Signs Temp Pulse Resp BP Pulse Ox 98.3 F 78 16 133/53 H 97 02/04/18 10:00 02/04/18 11:14 02/04/18 11:14 02/04/18 10:04 02/04/18 10:00 Oxygen Flow Rate (L/min) 4 Oxygen Delivery Method Nasal Cannula Weight: 309 lb 6.383 oz Body Mass Index (BMI) 43.1 Intake and Output for Last 24 Hours 0802/03/18 02/04/18 23:59 23:59 23:59 Intake Total 1320.4 / 1320.4 2712 / 2712 2307 / 2307 Output Total 400 / 400 538 / 538 Balance 1320.4 / 1320.4 2312 / 2312 1769 / 1769 Laboratory Tests Past 24 Hrs 02/04/18 02/04/18 10:32 10:32 WBC 7.2 RBC 4.68 Hgb 12.8 L Hct 38.2 L MCV 81.6 MCH 27.4 MCHC 33.5 RDW 16.7 H RDW Differential 49.2 H Plt Count 85 L MPV 9.6 Immature Gran % (Auto) 1.400 H Neut % (Auto) 85.5 H Lymph % (Auto) 6.8 L Patrick % (Auto) 6.1 Eos % (Auto) 0.1 Baso % (Auto) 0.1 Absolute Neuts (auto) 6.2 Absolute Lymphs (auto) 0.49 L Total Counted Not Reportable Differential Comment COMMENT Sodium 133 L Potassium 4.1 Chloride 100 Carbon Dioxide 25.0 Anion Gap 8 BUN 39 H Creatinine 1.93 H Estim Creat Clear Calc 39.02 Est GFR (MDRD) Af Amer 45 L Est GFR (MDRD) Non-Af 37 L BUN/Creatinine Ratio 20.2 H Glucose 344 H Calcium 7.7 L POC Glucose 02/04/18 02/04/18 02/03/18 11:27 06:44 22:50 POC Glucose 267 H 181 H 266 H 02/03/18 17:03 POC Glucose 312 H Clinical Impression(s) from Imaging Studies Lung Scan-VQ NM 02/02/18 12:13 IMPRESSION: 1. NORMAL 99m Tc DTPA aerosol ventilation/Tc 99m MAA pulmonary perfusion imaging examination, according to PIOPED II interpretive criteria. (Sotsman et al, Radiology 246: 941, 2008 Sotsman et al, J Nucl Med 49: 1741, 2008). Electronically Signed: Marcelo Bell DO at 14:47 EDT Tel , Service support , Chest X-Ray 02/02/18 14:03 IMPRESSION: No acute abnormality is seen. Electronically Signed: Rayo Fowler MD at 14:42 EDT Tel [phone], Service support , Chest CT 02/02/18 17:23 IMPRESSION: No acute abnormalities are seen on the chest CT. There is minimal dependent atelectasis in both lower lobes. There is no focal consolidation. There are no lung nodules. There is no pleural effusion or significant lymphadenopathy. Electronically Signed: Elba Jaimes MD at 19:47 EDT Tel Direct: [phone], Service support , Assessment/Plan All Active Problems Acute DVT (deep venous thrombosis) (Acute) RECOMMENDATIONS: 1. Discontinue supplemental IV fluids and continue baseline diuretic regimen. 2. Wean supplemental oxygen to maintain saturations at or above 90%. 3. Encourage aggressive incentive spirometer use and mobilize patient as tolerated. 4. Start empiric BiPAP therapy 12/6 cm of water with naps and nightly. 5. Recommend outpatient formal diagnostic polysomnogram. IMPRESSIONS: 1. Acute hypoxic respiratory insufficiency The patient is now overall 5 L positive for the admission, and given his underlying diastolic dysfunction, he may have a component of pulmonary edema contributing to his supplemental oxygen requirement. In addition, his presenting CT chest did reveal basilar atelectasis. Therefore, the patient may have a component of a VQ mismatch due to the aforementioned. Would recommend discontinuing supplemental IV fluids at this time. Continue baseline diuretic regimen. I have strongly advocated that the patient utilize his incentive spirometer and get up and be as mobile as possible. Wean supplemental oxygen to maintain saturations at or above 90%. I strongly suspect that the patient's increasing supplemental oxygen requirement is a reflux by nursing due to the patient's perceived dyspnea. There is no documentation in the vitals that indicate that the patient was more hypoxic, prior to his supplemental oxygen flow rate being increased. Although he is morbidly obese, his serum bicarbonate is normal. Therefore, I have low clinical index of suspicion for underlying alveolar hypoventilation. Additionally, the patient has symptoms concerning for sleep disordered breathing, for which she should ideally be followed up as an outpatient to undergo a diagnostic polysomnogram. In the interim, BiPAP can be utilized with naps and nightly. This will also aid in alveolar recruitment and decrease any potential VQ mismatching. 2. Questionable sleep disordered breathing The patient has symptoms concerning for underlying obstructive sleep apnea. Recommend formal outpatient polysomnogram. The patient can be started empirically on BiPAP with naps and nightly at a pressure support of 12/6 cm of water with humidification. 3. Heart failure with preserved ejection fraction Continue baseline diuretic regimen. 4. Lower extremity DVT status post IVC filter placement/morbid obesity/non-Hodgkin's lymphoma with brain metastases/diabetes Complicates care, management, recovery and prognosis. Continue to hold potential nephrotoxic medications. This note was generated with [employer] dictation software. It may contain incorrect words, spelling, and punctuation that were not noted in checking the note before signing. Code Visit Inpatient E&M: 63990 Init Hosp L3
--- NOTE | 2018-02-04 13:45 | CASEMGMT ---
JOELLE spoke with Antoinette at [facility] and they can take patient. JOELLE told her possible d/c over the weekend. JOELLE also told her about his treatments being a clinical trial and not through insurance. She said that is fine. JOELLE then received a call from Sasha with Dr Seymour's office. She confirmed information SW was told before by Susan. She gave SW all of the appointments and times. She said it is an experimental drug and it does not even have a name. JOELLE spoke with patient and his . JOELLE told them [facility] can take him. Patient's said she will transport patient to appointments. She wanted to know if he could spend the night in [place] Wednesday night after appt as it is a 12 hour appt and then he has to be back there the next day between 10a and noon. JOELLE told her SW will ask [facility]. JOELLE spoke with Antoinette at [facility] about above situation and after some phone calls she said that would be fine. JOELLE called patient's and let her know. SW completed convalescent on . Plan: [facility] under skilled level of care on a convalescent stay. Patient's will transport him via private vehicle. Susan PARADA
[2018-02-04 14:06] LABS: Allen Test POS; Base Excess -3 mmol/L (-2 to +2); Bicarbonate 20.9 mmol/L (22-26); Blood Gas Specimen Type ART; O2 Delivery Device Room Air; PO2 62 mmHG (75-100); SITE L Radial; SO2 92 % (95-99); Time Given 1340; Total Carbon Dioxide 22 mmol/L; pCO2 31.9 mmHg (35-45); pH 7.43 (7.35-7.45)
[2018-02-04 17:16] LABS: Bedside Glucose 258 mg/dL (70-110)
--- NOTE | 2018-02-04 20:30 | NURSING ---
CLINICAL INFORMATICS SPEC walked pt. in negrete . Walked only to room 123 from room 120 and pt. turned back. Pt. weak,Tolerated fair.
[2018-02-04] MEDS: traMADol 50 MG Tablet PO (21:16)
[2018-02-04 22:55] LABS: Bedside Glucose 230 mg/dL (70-110)
[2018-02-05] VITALS (20 sets, daily range): BP systolic 105–122; BP diastolic 55–69; PULSE 60–84; RESP 12–22; TEMP 36.7–37.1; O2SAT 94–98
--- NOTE | 2018-02-05 06:44 | PCM.PROGNOTE ---
Patient Problems: Active and Suspected Problems Acute DVT (deep venous thrombosis) (Acute) Subjective: The patient was seen and examined at the bedside this morning. Events from the last 24 hours have been reviewed. The patient is currently afebrile hemodynamically stable. He did tolerate BiPAP overnight with a pressure support of 12/6 cm of water. He is currently overall net +4.4 L for the admission. All of the patient's continuous supplemental IV fluids were discontinued yesterday per my recommendations, his Lasix regimen was never restarted. He does report interval improvement in his breathing quality this morning. Although per the patient's account, nursing was just at the bedside and checked his pulse ox, at which time it was noted to be 96%, there have been no attempts to wean his supplemental oxygen beyond 4 L/min. Objective: The patient's most recent lab work, culture data and imaging studies have all been personally reviewed. CT without contrast was completed on February 02 and revealed no acute cardiopulmonary process, with the exception of dependent atelectasis. Surface echocardiogram completed in November 2017 revealed evidence of stage I diastolic dysfunction with preserved ejection fraction. - Physical Exam General: Alert, Oriented x3, Cooperative, No apparent distress, - - Morbidly obese. Resting comfortably in bed. HEENT: Atraumatic, PERRLA, Normocephalic Oral: No Gingival or Mucosal Lesions/ Ulcerations Neck: Supple, No Nodes, Trachea Midline, - - Large neck circumference with redundant soft tissue. Lungs: No rhonchi, No wheeze, No rales, Diminished Cardiovascular: Regular rate, Regular Rhythm, Normal S1, Normal S2, No murmurs Abdomen: Bowel Sounds Present, Soft, Non Tender, Non-Distended, Obese Extremities: No clubbing, No cyanosis, No edema Skin: No breakdown Musculoskeletal: No Tenderness to Palpation of Joints or Extremities Lymphatic: No Cervical, Supraclavicular, or Inguinal Adenopathy Neurological: Neuro grossly intact Psych/Mental Status: Alert and oriented to time, place, person, mood and affect Vital Signs Temp Pulse Resp BP Pulse Ox 98.8 F 60 16 122/69 H 96 02/05/18 03:25 02/05/18 03:25 02/05/18 03:25 02/05/18 03:25 02/05/18 03:25 Oxygen Flow Rate (L/min) 4 Oxygen Delivery Method Bi-pap Weight: 309 lb 4.937 oz Body Mass Index (BMI) 43.1 Intake and Output for Last 24 Hours 02/03/18 02/04/18 02/05/18 23:59 23:59 23:59 Intake Total 2712 / 2712 3297 / 3297 Output Total 400 / 400 2513 / 2513 Balance 2312 / 2312 784 / 784 Laboratory Tests Past 24 Hrs 02/04/18 02/04/18 02/04/18 10:32 10:32 14:02 WBC 7.2 RBC 4.68 Hgb 12.8 L Hct 38.2 L MCV 81.6 MCH 27.4 MCHC 33.5 RDW 16.7 H RDW Differential 49.2 H Plt Count 85 L MPV 9.6 Immature Gran % (Auto) 1.400 H Neut % (Auto) 85.5 H Lymph % (Auto) 6.8 L [place] % (Auto) 6.1 Eos % (Auto) 0.1 Baso % (Auto) 0.1 Absolute Neuts (auto) 6.2 Absolute Lymphs (auto) 0.49 L Total Counted Not Reportable Differential Comment COMMENT Specimen Type ART Sample Site L Radial pH 7.43 Bicarbonate Actual 20.9 L POC Total CO2 22 Base Excess -3 L O2 Saturation 92 L ABG pCO2 31.9 L ABG pO2 62 L John Test POS O2 Delivery Device Room Air Blood Gas Notified Whom HOSP Blood Gas Notified Time 1340 Sodium 133 L Potassium 4.1 Chloride 100 Carbon Dioxide 25.0 Anion Gap 8 BUN 39 H Creatinine 1.93 H Estim Creat Clear Calc 39.02 Est GFR (MDRD) Af Amer 45 L Est GFR (MDRD) Non-Af 37 L BUN/Creatinine Ratio 20.2 H Glucose 344 H Calcium 7.7 L POC Glucose 02/04/18 02/04/18 02/04/18 21:15 17:10 11:27 POC Glucose 230 H 258 H 267 H 02/04/18 06:44 POC Glucose 181 H Clinical Impression(s) from Imaging Studies Lung Scan-VQ NM 02/02/18 12:13 IMPRESSION: 1. NORMAL 99m Tc DTPA aerosol ventilation/Tc 99m MAA pulmonary perfusion imaging examination, according to PIOPED II interpretive criteria. (Somayda et al, Radiology 246: 941, 2008 Sotsman et al, J Nucl Med 49: 1741, 2008). Electronically Signed: Marcelo Bell DO at 14:47 EDT Tel , Service support , Chest X-Ray 02/02/18 14:03 IMPRESSION: No acute abnormality is seen. Electronically Signed: Rayo Fowler MD at 14:42 EDT Tel [phone], Service support , Chest CT 02/02/18 17:23 IMPRESSION: No acute abnormalities are seen on the chest CT. There is minimal dependent atelectasis in both lower lobes. There is no focal consolidation. There are no lung nodules. There is no pleural effusion or significant lymphadenopathy. Electronically Signed: Elba Jaimes MD at 19:47 EDT Tel Direct: [phone], Service support , Medical Necessity - Tobacco Use Smoking Status: Former smoker Tobacco Use: Cigarettes, Cigars, Pipe Assessment/Plan All Active Problems Acute DVT (deep venous thrombosis) (Acute) RECOMMENDATIONS: 1. Restart baseline diuretic regimen. 2. Recheck BMP this morning. 3. Wean supplemental oxygen to maintain saturations at or above 90%. 4. Encourage aggressive incentive spirometer use and mobilize patient as tolerated. 5. Continue empiric BiPAP therapy 12/6 cm of water with naps and nightly. 6. Recommend outpatient formal diagnostic polysomnogram. IMPRESSIONS: 1. Acute hypoxic respiratory insufficiency The patient is now overall net positive for the admission, and given his underlying diastolic dysfunction, he may have a component of pulmonary edema contributing to his supplemental oxygen requirement. In addition, his presenting CT chest did reveal basilar atelectasis. Therefore, the patient may have a component of a VQ mismatch due to the aforementioned. Although supplemental IV fluids were discontinued per my recommendations, his baseline diuretic regimen was never restarted. Recommend restarting Lasix per home regimen. I have strongly advocated that the patient utilize his incentive spirometer and get up and be as mobile as possible. Wean supplemental oxygen to maintain saturations at or above 90%. Although the patient's oxygen saturations have been in the mid to high 90s, there have been no attempts by nursing to wean his supplemental oxygen. Although he is morbidly obese, his serum bicarbonate is normal. Therefore, I have low clinical index of suspicion for underlying alveolar hypoventilation. Additionally, the patient has symptoms concerning for sleep disordered breathing, for which she should ideally be followed up as an outpatient to undergo a diagnostic polysomnogram. In the interim, BiPAP will be utilized with naps and nightly. This will also aid in alveolar recruitment and decrease any potential VQ mismatching. 2. Questionable sleep disordered breathing The patient has symptoms concerning for underlying obstructive sleep apnea. Recommend formal outpatient polysomnogram. The patient can be started empirically on BiPAP with naps and nightly at a pressure support of 12/6 cm of water with humidification. 3. Heart failure with preserved ejection fraction Restart baseline diuretic regimen. 4. Lower extremity DVT status post IVC filter placement/morbid obesity/non-Hodgkin's lymphoma with brain metastases/diabetes Complicates care, management, recovery and prognosis. Continue to hold potential nephrotoxic medications. This note was generated with [employer] dictation software. It may contain incorrect words, spelling, and punctuation that were not noted in checking the note before signing. Code Visit Inpatient E&M: 68859 Subs Hosp L2
[2018-02-05] MEDS: Ipratropium/Albuterol Sulfate 3 ML AMPUL.NEB INHALATION ×4 (07:05→18:44)
[2018-02-05 07:21] LABS: Bedside Glucose 253 mg/dL (70-110)
[2018-02-05] MEDS: Glucerna Shake 120 ML LIQUID PO ×3 (08:24→16:38)
[2018-02-05] MEDS: Insulin Lispro 100 UNIT/ML INSULN.PEN 10 UNIT SC ×2 (08:24→11:20)
[2018-02-05] MEDS: Insulin Lispro 100 UNIT/ML INSULN.PEN SC ×4 (08:24→22:13)
[2018-02-05] MEDS: Multivitamins,Therapeutic Tablet 1 TABLET PO (08:24)
[2018-02-05] MEDS: Menthol/Lanolin/Calamine/Znox 113 GM Tube 1 APPLIC TOPICAL ×2 (08:25→22:50)
[2018-02-05] MEDS: amLODIPine 5 MG Tablet PO (08:25)
[2018-02-05] MEDS: Metoprolol Tartrate 25 MG Tablet 12.5 MG PO ×2 (08:25→22:10)
[2018-02-05] MEDS: Doxycycline 100 MG CAPSULE PO ×2 (08:25→22:10)
[2018-02-05] MEDS: Pantoprazole Sodium 40 MG Tablet PO (08:26)
[2018-02-05] MEDS: Allopurinol 100 MG Tablet PO (08:26)
[2018-02-05 09:13] LABS: Anion Gap 6 (5-15); BUN 31 mg/dL (7-18); BUN/Creat Ratio 18.5 RATIO (10-20); Calcium,Total 7.8 mg/dL (8.5-10.1); Chloride 101 mmol/L (98-107); Creatinine, Serum 1.68 mg/dL (0.70-1.30); EST Glomerular Filtration Rate 43 mL/min (>60); Est Glom Filt Rate - Afr Amer 52 mL/min (>60); Estimated Creatinine Clearance 44.82 ml/min; Glucose 302 mg/dL (74-106); Sodium Level 135 mmol/L (136-145)
[2018-02-05] MEDS: Ascorbic Acid 500 MG Tablet 1000 MG PO (11:19)
[2018-02-05] MEDS: Furosemide 40 MG Tablet PO (11:19)
[2018-02-05 11:31] LABS: Bedside Glucose 398 mg/dL (70-110)
--- NOTE | 2018-02-05 14:12 | PCM.PN.HOSP ---
Patient Problems: Active and Suspected Problems Acute DVT (deep venous thrombosis) (Acute) Subjective: Patient is sitting in the chair. Seen by Dr. Ivory. Patient was encouraged for incentive spirometry. He used BiPAP last night. Started on Lasix 40 mg daily. Discussed with the nurse and she is aware of titrating the oxygen to keep pulse ox 90-92%. Vitals/I&O's: Vital Signs Temp Pulse Resp BP Pulse Ox 98.0 F 72 20 H 105/62 94 02/05/18 09:25 02/05/18 11:12 02/05/18 11:12 02/05/18 09:25 02/05/18 11:12 Oxygen Flow Rate (L/min) 3 Oxygen Delivery Method Nasal Cannula Weight: 309 lb 4.937 oz Body Mass Index (BMI) 43.1 Intake and Output for Last 24 Hours 02/03/18 02/04/18 02/05/18 23:59 23:59 23:59 Intake Total 2712 / 2712 3297 / 3297 870 / 870 Output Total 400 / 400 2513 / 2513 1275 / 1275 Balance 2312 / 2312 784 / 784 -405 / -405 General: Alert, Oriented x3, Cooperative, - - Morbid obese HEENT: Atraumatic, PERRLA, EOMI, Normocephalic Neck: Supple, No JVD, Negative Carotid Bruits Lungs: Clear to auscultation, No rhonchi, No wheeze, Diminished Cardiovascular: Regular rate, Regular Rhythm, Normal S1, Normal S2, No murmurs Abdomen: Bowel Sounds Present, Soft, Non Tender, - - Large abdominal panniculus Extremities: Capillary Refill Less than 3 Seconds, Edema Skin: No rashes, No breakdown Musculoskeletal: No Tenderness to Palpation of Joints or Extremities Neurological: Cranial nerves II-XII grossly intact Psych/Mental Status: Normal Affect, Appropriate Laboratory Results 02/04/18 17:10: POC Glucose 258 H 02/04/18 21:15: POC Glucose 230 H 02/05/18 07:18: POC Glucose 253 H 02/05/18 08:52: Sodium 135 L, Potassium 4.0, Chloride 101, Carbon Dioxide 28.0, Anion Gap 6, BUN 31 H, Creatinine 1.68 H, Estim Creat Clear Calc 44.82, Est GFR (MDRD) Af Amer 52 L, Est GFR (MDRD) Non-Af 43 L, BUN/Creatinine Ratio 18.5, Glucose 302 H, Calcium 7.8 L 02/05/18 11:18: POC Glucose 398 H Current Medications Albuterol Sulfate (Ventolin Aerosols) 2.5 mg INHALATION Q2H PRN PRN PRN Reason: SOB &/OR WHEEZING Last Admin: 02/04/18 01:30 Dose: 2.5 mg Albuterol/Ipratropium (Duoneb) 3 ml INHALATION Q4HWA.RT [facility] Last Admin: 02/05/18 11:12 Dose: 3 ml Allopurinol (Zyloprim) 100 mg PO DAILY [facility] Last Admin: 02/05/18 08:26 Dose: 100 mg Amlodipine Besylate (Norvasc) 5 mg PO DAILY [facility] Last Admin: 02/05/18 08:25 Dose: 5 mg Ascorbic Acid (Vitamin C) 1,000 mg PO DAILY@0800 [facility] Last Admin: 02/05/18 11:19 Dose: 1,000 mg Calamine/Phenol (Calmoseptine Ointment) 1 applic TOPICAL BID [facility] PRN Reason: Protocol Last Admin: 02/05/18 08:25 Dose: 1 applic Docusate Sodium (Colace) 100 mg PO BID PRN PRN Reason: Constipation Doxycycline Monohydrate (Doxycycline) 100 mg PO BID [facility] Stop: 02/07/18 22:01 Last Admin: 02/05/18 08:25 Dose: 100 mg Furosemide (Lasix) 40 mg PO DAILY [facility] Last Admin: 02/05/18 11:19 Dose: 40 mg Insulin Glargine (Lantus (Bkc)) 50 units SC QHS [facility] Last Admin: 02/04/18 21:26 Dose: 50 units Insulin Human Lispro (Humalog Kwikpen (Bkc)) 0 unit SC ACHS [facility] PRN Reason: Protocol Last Admin: 02/05/18 11:20 Dose: 6 units Insulin Human Lispro (Humalog Kwikpen (Bkc)) 10 unit SC TIDCM [facility] Last Admin: 02/05/18 11:20 Dose: 10 u Metoprolol Tartrate (Lopressor (Beta Mandeep)) 12.5 mg PO BID [facility] Last Admin: 02/05/18 08:25 Dose: 12.5 mg Multivitamins (Multivitamin) 1 tablet PO DAILYCM [facility] Last Admin: 02/05/18 08:24 Dose: 1 tablet Nutritional Formula (Lactose Free) (Glucerna Shake) 120 ml PO TIDCM [facility] Last Admin: 02/05/18 11:20 Dose: 120 ml Nystatin (Mycostatin Powder) 1 applic TOPICAL BID PRN; Protocol PRN Reason: redness/yeast Pantoprazole Sodium (Protonix) 40 mg PO DAILY [facility] Last Admin: 02/05/18 08:26 Dose: 40 mg Paroxetine HCl (Paxil) 30 mg PO DAILY [facility] Last Admin: 02/05/18 08:26 Dose: 30 mg Polyethylene Glycol (Miralax) 17 gm PO BID PRN PRN Reason: Constipation Sodium Chloride () 5 - 30 ml IV UD PRN PRN Reason: SALINE FLUSH Last Admin: 02/02/18 18:08 Dose: 10 ml Tramadol HCl (Ultram) 50 mg PO Q6H PRN PRN PRN Reason: PAIN Last Admin: 02/04/18 21:16 Dose: 50 mg Medical Necessity - Tobacco Use Smoking Status: Former smoker Tobacco Use: Cigarettes, Cigars, Pipe Assessment/Plan All Active Problems Acute DVT (deep venous thrombosis) (Acute) This is a 67-year-old gentleman who is being admitted for shortness of breath and hypoxia over 3 days. Patient said shortness of breath getting worse for last 3 days even with minimal exertion. Workup in the ER is negative for the cause of hypoxia including chest x-ray and VQ scan. CT chest without IV contrast and did not really reveal much abnormality except dependent atelectasis. Patient also has morbid obesity the suspicion of obstructive sleep apnea 1. Acute hypoxic respiratory failure, likely from atelectasis, possible sleep apnea from morbid obesity, from chronic diastolic dysfunction: Pulmonary consult appreciated. Patient feels better after yesterday use of BiPAP to help in the recruitment of alveoli and reduce respiratory space. On Lasix, incentive spirometry. 2. Acute left leg DVT, history of intracerebral bleed 5 years ago, s/p IVC filter by vascular surgery. 3. MEGAN on CKD stage III, Cr is slightly elevated compared to prior, increase from 1.89 to 1.93, 1.68 4. Possible Sleep disordered breathing, recommended Bipap at night, sleep study in outpatient 5. History of CVA, on statin not on aspirin 6. NHL with brain metastases, following with oncology next week 7. Type II DM, poorly controlled probably secondary to increased insulin resistant due to morbid obesity: On high-dose of insulin; Lantus increased to 55 units subcu daily and NovoLog insulin dose increased to 15 units 3 times daily before meals. A1c tomorrow a.m. 8. Hypertension, controlled 9. DVT PPx- SCDs Laboratory Results 02/04/18 17:10: POC Glucose 258 H 02/04/18 21:15: POC Glucose 230 H 02/05/18 07:18: POC Glucose 253 H 02/05/18 08:52: Sodium 135 L, Potassium 4.0, Chloride 101, Carbon Dioxide 28.0, Anion Gap 6, BUN 31 H, Creatinine 1.68 H, Estim Creat Clear Calc 44.82, Est GFR (MDRD) Af Amer 52 L, Est GFR (MDRD) Non-Af 43 L, BUN/Creatinine Ratio 18.5, Glucose 302 H, Calcium 7.8 L 02/05/18 11:18: POC Glucose 398 H Code Visit Inpatient E&M: 10774 Subs Hosp L2
[2018-02-05] MEDS: Insulin Lispro 100 UNIT/ML INSULN.PEN 15 UNIT SC (16:39)
[2018-02-05 16:45] LABS: Bedside Glucose 235 mg/dL (70-110)
[2018-02-05] MEDS: traMADol 50 MG Tablet PO (17:55)
[2018-02-05 22:31] LABS: Bedside Glucose 294 mg/dL (70-110)
[2018-02-06] VITALS (21 sets, daily range): BP systolic 91–122; BP diastolic 38–60; PULSE 58–87; RESP 12–20; TEMP 36.5–37.1; O2SAT 93–97
[2018-02-06 06:36] LABS: Anion Gap 6 (5-15); BUN 30 mg/dL (7-18); BUN/Creat Ratio 20.5 RATIO (10-20); Calcium,Total 7.7 mg/dL (8.5-10.1); Chloride 101 mmol/L (98-107); Creatinine, Serum 1.46 mg/dL (0.70-1.30); EST Glomerular Filtration Rate 51 mL/min (>60); Est Glom Filt Rate - Afr Amer 62 mL/min (>60); Estimated Creatinine Clearance 51.58 ml/min; Glucose 203 mg/dL (74-106); Potassium 3.4 mmol/L (3.5-5.1); Sodium Level 136 mmol/L (136-145)
--- NOTE | 2018-02-06 07:14 | PCM.PROGNOTE ---
Patient Problems: Active and Suspected Problems Acute DVT (deep venous thrombosis) (Acute) Subjective: The patient was seen and examined at the bedside this morning. Events from the last 24 hours have been reviewed. The patient has been compliant with use of nocturnal BiPAP therapy. He is now overall net +3.4 L for the admission. Creatinine continues to improve. Potassium is low this morning at 3.4. Objective: The patient's most recent lab work, culture data and imaging studies have all been personally reviewed. CT without contrast was completed on February 02 and revealed no acute cardiopulmonary process, with the exception of dependent atelectasis. Surface echocardiogram completed in November 2017 revealed evidence of stage I diastolic dysfunction with preserved ejection fraction. - Physical Exam General: Alert, Cooperative, No apparent distress, - - Morbidly obese HEENT: Atraumatic, PERRLA, Normocephalic Oral: No Gingival or Mucosal Lesions/ Ulcerations Neck: Supple, No Nodes, Trachea Midline, - - Large neck circumference with redundant soft tissue. Lungs: No rhonchi, No wheeze, No rales, Diminished Cardiovascular: Regular rate, Regular Rhythm, Normal S1, Normal S2, No murmurs Abdomen: Bowel Sounds Present, Soft, Non Tender, Obese Extremities: No clubbing, No cyanosis, No edema Skin: No breakdown Musculoskeletal: No Tenderness to Palpation of Joints or Extremities Neurological: Neuro grossly intact Psych/Mental Status: Normal Affect, Appropriate Vital Signs Temp Pulse Resp BP Pulse Ox 98.7 F 59 L 19 H 91/53 L 96 02/06/18 06:42 02/06/18 06:42 02/06/18 06:42 02/06/18 06:42 02/06/18 06:42 Oxygen Flow Rate (L/min) 3 Oxygen Delivery Method Bi-pap Weight: 309 lb 4.937 oz Body Mass Index (BMI) 43.1 Intake and Output for Last 24 Hours 02/04/18 02/05/18 02/06/18 23:59 23:59 23:59 Intake Total 3297 / 3297 1815 / 1815 0 / 0 Output Total 2513 / 2513 2200 / 2200 650 / 650 Balance 784 / 784 -385 / -385 -650 / -650 Laboratory Tests Past 24 Hrs 02/05/18 02/06/18 08:52 05:30 Sodium 135 L 136 Potassium 4.0 3.4 L Chloride 101 101 Carbon Dioxide 28.0 29.0 Anion Gap 6 6 BUN 31 H 30 H Creatinine 1.68 H 1.46 H Estim Creat Clear Calc 44.82 51.58 Est GFR (MDRD) Af Amer 52 L 62 Est GFR (MDRD) Non-Af 43 L 51 L BUN/Creatinine Ratio 18.5 20.5 H Glucose 302 H 203 H Calcium 7.8 L 7.7 L POC Glucose 02/05/18 02/05/18 02/05/18 22:08 16:37 11:18 POC Glucose 294 H 235 H 398 H 02/05/18 07:18 POC Glucose 253 H Clinical Impression(s) from Imaging Studies Lung Scan-VQ NM 02/02/18 12:13 IMPRESSION: 1. NORMAL 99m Tc DTPA aerosol ventilation/Tc 99m MAA pulmonary perfusion imaging examination, according to PIOPED II interpretive criteria. (Somayda et al, Radiology 246: 941, 2008 Somayda et al, J Nucl Med 49: 1741, 2008). Electronically Signed: Marcelo Bell DO at 14:47 EDT Tel , Service support , Chest X-Ray 02/02/18 14:03 IMPRESSION: No acute abnormality is seen. Electronically Signed: Rayo Fowler MD at 14:42 EDT Tel [phone], Service support , Chest CT 02/02/18 17:23 IMPRESSION: No acute abnormalities are seen on the chest CT. There is minimal dependent atelectasis in both lower lobes. There is no focal consolidation. There are no lung nodules. There is no pleural effusion or significant lymphadenopathy. Electronically Signed: Elba Jaimes MD at 19:47 EDT Tel Direct: [phone], Service support , Medical Necessity - Tobacco Use Smoking Status: Former smoker Tobacco Use: Cigarettes, Cigars, Pipe Assessment/Plan All Active Problems Acute DVT (deep venous thrombosis) (Acute) RECOMMENDATIONS: 1. Continue baseline diuretic regimen. 2. Wean supplemental oxygen to maintain saturations at or above 90%. 3. Encourage aggressive incentive spirometer use and mobilize patient as tolerated. 4. Continue empiric BiPAP therapy 12/6 cm of water with naps and nightly. 5. Recommend outpatient formal diagnostic polysomnogram. 6. Perform walking oximetry study prior to consideration for discharge from the hospital. IMPRESSIONS: 1. Acute hypoxic respiratory insufficiency The patient is now overall net positive for the admission, and given his underlying diastolic dysfunction, he may have a component of pulmonary edema contributing to his supplemental oxygen requirement. In addition, his presenting CT chest did reveal basilar atelectasis. Therefore, the patient may have a component of a VQ mismatch due to the aforementioned. Although supplemental IV fluids were discontinued per my recommendations, his baseline diuretic regimen was not initially restarted. At this time, recommend continuing Lasix per home regimen. I have strongly advocated that the patient utilize his incentive spirometer and get up and be as mobile as possible. Wean supplemental oxygen to maintain saturations at or above 90%. Although the patient's oxygen saturations have been in the mid to high 90s, there have been no attempts by nursing to wean his supplemental oxygen. Although he is morbidly obese, his serum bicarbonate is normal. Therefore, I have low clinical index of suspicion for underlying alveolar hypoventilation. Additionally, the patient has symptoms concerning for sleep disordered breathing, for which she should ideally be followed up as an outpatient to undergo a diagnostic polysomnogram. In the interim, BiPAP will be utilized with naps and nightly. This will also aid in alveolar recruitment and decrease any potential VQ mismatching. 2. Questionable sleep disordered breathing The patient has symptoms concerning for underlying obstructive sleep apnea. Recommend formal outpatient polysomnogram. The patient can be started empirically on BiPAP with naps and nightly at a pressure support of 12/6 cm of water with humidification. 3. Heart failure with preserved ejection fraction Continue baseline diuretic regimen. 4. Lower extremity DVT status post IVC filter placement/morbid obesity/non-Hodgkin's lymphoma with brain metastases/diabetes Complicates care, management, recovery and prognosis. Continue to hold potential nephrotoxic medications. This note was generated with SUPRation software. It may contain incorrect words, spelling, and punctuation that were not noted in checking the note before signing. Code Visit Inpatient E&M: 93437 Subs Hosp L2
[2018-02-06] MEDS: Ipratropium/Albuterol Sulfate 3 ML AMPUL.NEB INHALATION ×3 (07:20→19:19)
[2018-02-06 07:56] LABS: Bedside Glucose 178 mg/dL (70-110)
[2018-02-06] MEDS: Insulin Lispro 100 UNIT/ML INSULN.PEN SC ×4 (09:06→21:40)
[2018-02-06] MEDS: Multivitamins,Therapeutic Tablet 1 TABLET PO (09:07)
[2018-02-06] MEDS: Insulin Lispro 100 UNIT/ML INSULN.PEN 15 UNIT SC ×3 (09:07→16:19)
[2018-02-06] MEDS: Metoprolol Tartrate 25 MG Tablet 12.5 MG PO ×2 (09:08→21:42)
[2018-02-06] MEDS: Doxycycline 100 MG CAPSULE PO ×2 (09:08→21:40)
[2018-02-06] MEDS: Menthol/Lanolin/Calamine/Znox 113 GM Tube 1 APPLIC TOPICAL ×2 (09:08→21:39)
[2018-02-06] MEDS: Pantoprazole Sodium 40 MG Tablet PO (09:09)
[2018-02-06] MEDS: amLODIPine 5 MG Tablet PO (09:09)
[2018-02-06] MEDS: Allopurinol 100 MG Tablet PO (09:09)
[2018-02-06] MEDS: Furosemide 40 MG Tablet PO (09:14)
[2018-02-06] MEDS: Ascorbic Acid 500 MG Tablet 1000 MG PO (09:14)
[2018-02-06] MEDS: Glucerna Shake 120 ML LIQUID PO ×2 (11:04→16:19)
[2018-02-06 11:15] LABS: Bedside Glucose 217 mg/dL (70-110)
--- NOTE | 2018-02-06 12:14 | PCM.PN.HOSP ---
Patient Problems: Active and Suspected Problems Acute DVT (deep venous thrombosis) (Acute) Subjective: The patient breathing is status seems improved with respiratory rate between 16-19/min. Patient tolerated well BiPAP for last 2 nights. Currently patient pulse ox documented as 93% on room air. Previously 95-96% on 3 L of oxygen through nasal cannula he still has physical deconditioning and gets easily short of breath on ambulation Vitals/I&O's: Vital Signs Temp Pulse Resp BP Pulse Ox 98.3 F 61 16 100/56 L 93 02/06/18 09:18 02/06/18 11:00 02/06/18 10:52 02/06/18 09:18 02/06/18 09:18 Oxygen Flow Rate (L/min) 3 Oxygen Delivery Method Room Air Weight: 309 lb 4.937 oz Body Mass Index (BMI) 43.1 Intake and Output for Last 24 Hours 02/04/18 02/05/18 02/06/18 23:59 23:59 23:59 Intake Total 3297 / 3297 1815 / 1815 0 / 0 Output Total 2513 / 2513 2200 / 2200 650 / 650 Balance 784 / 784 -385 / -385 -650 / -650 General: Alert, Oriented x3, Cooperative HEENT: Atraumatic, PERRLA, EOMI, Normocephalic Neck: Supple, No JVD, Negative Carotid Bruits Lungs: Clear to auscultation, No rhonchi, No wheeze, Diminished Cardiovascular: Regular rate, Regular Rhythm, Normal S1, Normal S2, No murmurs Abdomen: Bowel Sounds Present, Soft, Non Tender, Non-Distended Extremities: No edema, Capillary Refill Less than 3 Seconds Skin: No rashes, No breakdown Musculoskeletal: No Tenderness to Palpation of Joints or Extremities Neurological: Cranial nerves II-XII grossly intact Psych/Mental Status: Normal Affect, Appropriate Laboratory Results 02/05/18 16:37: POC Glucose 235 H 02/05/18 22:08: POC Glucose 294 H 02/06/18 05:30: Sodium 136, Potassium 3.4 L, Chloride 101, Carbon Dioxide 29.0, Anion Gap 6, BUN 30 H, Creatinine 1.46 H, Estim Creat Clear Calc 51.58, Est GFR (MDRD) Af Amer 62, Est GFR (MDRD) Non-Af 51 L, BUN/Creatinine Ratio 20.5 H, Glucose 203 H, Calcium 7.7 L 02/06/18 06:46: POC Glucose 178 H 02/06/18 11:05: POC Glucose 217 H Current Medications Albuterol Sulfate (Ventolin Aerosols) 2.5 mg INHALATION Q2H PRN PRN PRN Reason: SOB &/OR WHEEZING Last Admin: 02/04/18 01:30 Dose: 2.5 mg Albuterol/Ipratropium (Duoneb) 3 ml INHALATION Q4HWA.RT [facility] Last Admin: 02/06/18 10:52 Dose: 3 ml Allopurinol (Zyloprim) 100 mg PO DAILY [facility] Last Admin: 02/06/18 09:09 Dose: 100 mg Amlodipine Besylate (Norvasc) 5 mg PO DAILY [facility] Last Admin: 02/06/18 09:09 Dose: 5 mg Ascorbic Acid (Vitamin C) 1,000 mg PO DAILY@0800 [facility] Last Admin: 02/06/18 09:14 Dose: 1,000 mg Calamine/Phenol (Calmoseptine Ointment) 1 applic TOPICAL BID [facility] PRN Reason: Protocol Last Admin: 02/06/18 09:08 Dose: 1 applic Docusate Sodium (Colace) 100 mg PO BID PRN PRN Reason: Constipation Doxycycline Monohydrate (Doxycycline) 100 mg PO BID [facility] Stop: 02/07/18 22:01 Last Admin: 02/06/18 09:08 Dose: 100 mg Furosemide (Lasix) 40 mg PO DAILY [facility] Last Admin: 02/06/18 09:14 Dose: 40 mg Insulin Glargine (Lantus (Bkc)) 55 units SC QHS [facility] Last Admin: 02/05/18 22:12 Dose: 55 u Insulin Human Lispro (Humalog Kwikpen (Bkc)) 0 unit SC ACHS [facility] PRN Reason: Protocol Last Admin: 02/06/18 11:05 Dose: 4 units Insulin Human Lispro (Humalog Kwikpen (Bkc)) 15 unit SC TIDCM [facility] Last Admin: 02/06/18 11:06 Dose: 15 units Metoprolol Tartrate (Lopressor (Beta Mandeep)) 12.5 mg PO BID [facility] Last Admin: 02/06/18 09:08 Dose: 12.5 mg Multivitamins (Multivitamin) 1 tablet PO DAILYCM [facility] Last Admin: 02/06/18 09:07 Dose: 1 tablet Nutritional Formula (Lactose Free) (Glucerna Shake) 120 ml PO TIDCM [facility] Last Admin: 02/06/18 11:04 Dose: 120 ml Nystatin (Mycostatin Powder) 1 applic TOPICAL BID PRN; Protocol PRN Reason: redness/yeast Pantoprazole Sodium (Protonix) 40 mg PO DAILY [facility] Last Admin: 02/06/18 09:09 Dose: 40 mg Paroxetine HCl (Paxil) 30 mg PO DAILY [facility] Last Admin: 02/06/18 09:09 Dose: 30 mg Polyethylene Glycol (Miralax) 17 gm PO BID PRN PRN Reason: Constipation [facility] Stop: 02/07/18 08:01 Last Admin: 02/06/18 11:03 Dose: 40 meq Sodium Chloride () 5 - 30 ml IV UD PRN PRN Reason: SALINE FLUSH Last Admin: 02/02/18 18:08 Dose: 10 ml Tramadol HCl (Ultram) 50 mg PO Q6H PRN PRN PRN Reason: PAIN Last Admin: 02/05/18 17:55 Dose: 50 mg Medical Necessity - Tobacco Use Smoking Status: Former smoker Tobacco Use: Cigarettes, Cigars, Pipe Assessment/Plan All Active Problems Acute DVT (deep venous thrombosis) (Acute) This is a 67-year-old gentleman who is being admitted for shortness of breath and hypoxia over 3 days. Patient said shortness of breath getting worse for last 3 days even with minimal exertion. Workup in the ER is negative for the cause of hypoxia including chest x-ray and VQ scan. CT chest without IV contrast and did not really reveal much abnormality except dependent atelectasis. Patient also has morbid obesity the suspicion of obstructive sleep apnea 1. Acute hypoxic respiratory failure, likely from atelectasis, possible sleep apnea from morbid obesity, from chronic diastolic dysfunction: Pulmonary consult appreciated. Patient feels better after yesterday use of BiPAP to help in the recruitment of alveoli and reduce respiratory space. On Lasix, incentive spirometry. Patient oxygenation status/hypoxia has improved. Needs walking pulse oximetry before discharge to further assess the need of home oxygen. 2. Acute left leg DVT, history of intracerebral bleed 5 years ago, s/p IVC filter by vascular surgery. 3. MEGAN on CKD stage III, Cr is slightly elevated compared to prior, increase from 1.89 to 1.93, 1.68, 1.46 4. Possible Sleep disordered breathing, recommended Bipap at night, sleep study in outpatient 5. History of CVA, on statin not on aspirin 6. NHL with brain metastases, following with oncology next week 7. Type II DM, poorly controlled probably secondary to increased insulin resistant due to morbid obesity: On high-dose of insulin; Lantus increased to 55 units subcu daily and NovoLog insulin dose increased to 15 units 3 times daily before meals. A1c tomorrow a.m. 8. Hypertension, controlled 9. DVT PPx- SCDs Laboratory Results 02/05/18 16:37: POC Glucose 235 H 02/05/18 22:08: POC Glucose 294 H 02/06/18 05:30: Sodium 136, Potassium 3.4 L, Chloride 101, Carbon Dioxide 29.0, Anion Gap 6, BUN 30 H, Creatinine 1.46 H, Estim Creat Clear Calc 51.58, Est GFR (MDRD) Af Amer 62, Est GFR (MDRD) Non-Af 51 L, BUN/Creatinine Ratio 20.5 H, Glucose 203 H, Calcium 7.7 L 02/06/18 06:46: POC Glucose 178 H 02/06/18 11:05: POC Glucose 217 H Code Visit Inpatient E&M: 74066 Subs Hosp L2
[2018-02-06] MEDS: traMADol 50 MG Tablet PO (16:22)
[2018-02-06 16:36] LABS: Bedside Glucose 212 mg/dL (70-110)
[2018-02-06 22:30] LABS: Bedside Glucose 258 mg/dL (70-110)
[2018-02-07] VITALS (12 sets, daily range): BP systolic 98–102; BP diastolic 49–67; PULSE 54–73; RESP 12–20; TEMP 36.7–36.9; O2SAT 93–98
[2018-02-07 06:49] LABS: Anion Gap 7 (5-15); BUN 24 mg/dL (7-18); BUN/Creat Ratio 18.3 RATIO (10-20); Calcium,Total 7.8 mg/dL (8.5-10.1); Chloride 104 mmol/L (98-107); Creatinine, Serum 1.31 mg/dL (0.70-1.30); EST Glomerular Filtration Rate 58 mL/min (>60); Est Glom Filt Rate - Afr Amer 70 mL/min (>60); Estimated Creatinine Clearance 57.48 ml/min; Glucose 184 mg/dL (74-106); Sodium Level 138 mmol/L (136-145)
[2018-02-07 07:01] LABS: Bedside Glucose 163 mg/dL (70-110)
[2018-02-07] MEDS: Albuterol 2.5 MG/3 ML VIAL.NEB. INHALATION (07:03)
[2018-02-07] MEDS: Ipratropium/Albuterol Sulfate 3 ML AMPUL.NEB INHALATION ×2 (07:05→11:19)
[2018-02-07] MEDS: Insulin Lispro 100 UNIT/ML INSULN.PEN SC ×2 (08:28→11:13)
[2018-02-07] MEDS: Insulin Lispro 100 UNIT/ML INSULN.PEN 15 UNIT SC ×2 (08:28→11:13)
[2018-02-07] MEDS: Glucerna Shake 120 ML LIQUID PO ×2 (08:28→11:13)
[2018-02-07] MEDS: Ascorbic Acid 500 MG Tablet 1000 MG PO (08:29)
[2018-02-07] MEDS: Multivitamins,Therapeutic Tablet 1 TABLET PO (08:29)
[2018-02-07] MEDS: Furosemide 40 MG Tablet PO (08:30)
[2018-02-07] MEDS: Metoprolol Tartrate 25 MG Tablet 12.5 MG PO (08:30)
[2018-02-07] MEDS: Doxycycline 100 MG CAPSULE PO (08:30)
[2018-02-07] MEDS: Menthol/Lanolin/Calamine/Znox 113 GM Tube 1 APPLIC TOPICAL (08:30)
[2018-02-07] MEDS: amLODIPine 5 MG Tablet PO (08:31)
[2018-02-07] MEDS: Pantoprazole Sodium 40 MG Tablet PO (08:32)
[2018-02-07] MEDS: Allopurinol 100 MG Tablet PO (08:32)
--- NOTE | 2018-02-07 10:17 | CASEMGMT ---
JOELLE noted patient is now on bi-pap for naps and overnight. JOELLE faxed settings and progress notes to [facility]. JOELLE also called Antoinette at [facility] and left her a voice mail letting her know patient will now need a bi-pap and that SW faxed this information. Plan: [facility] under skilled level of care Susan PARADA
--- NOTE | 2018-02-07 11:24 | PN_ITS ---
Patient Problems: Active and Suspected Problems Acute DVT (deep venous thrombosis) (Acute) Subjective: Patient did well overnight. No acute issues were reported. Patient reports subjective improvement in sleep following initiation of BiPAP therapy. Patient denies any chest pain. Patient does have some dyspnea on exertion noted. - Physical Exam General: Alert, Oriented x3, Cooperative, No apparent distress, - - Morbidly obese. Speaking in full sentences. HEENT: Atraumatic, PERRLA, EOMI, Normocephalic, - - No scleral icterus or injection noted. Oral: Moist Mucosa, No Gingival or Mucosal Lesions/ Ulcerations Neck: Supple, No JVD, No Nodes, Trachea Midline Lungs: No rhonchi, No wheeze, Diminished, Rales - Improved with deep inhalation Cardiovascular: Regular rate, Regular Rhythm, Normal S1, Normal S2, No murmurs, No rub noted, No Gallop Abdomen: Bowel Sounds Present, Soft, Non Tender, Non-Distended, Obese Extremities: No clubbing, No cyanosis, Capillary Refill Less than 3 Seconds, Edema - 1+ lower extremity Skin: - - Venous stasis changes of the lower extremities Musculoskeletal: No Tenderness to Palpation of Joints or Extremities, No Muscle Wasting Lymphatic: No Cervical, Supraclavicular, or Inguinal Adenopathy Neurological: Cranial nerves II-XII grossly intact, Neuro grossly intact, Motor Exam 5/5 strength throughout Psych/Mental Status: Alert and oriented to time, place, person, mood and affect Vital Signs Temp Pulse Resp BP Pulse Ox 36.7 C 69 14 100/49 L 93 02/07/18 09:15 02/07/18 09:15 02/07/18 09:15 02/07/18 09:15 02/07/18 10:38 Oxygen Flow Rate (L/min) 1 Oxygen Delivery Method Room Air Weight: 140.3 kg Body Mass Index (BMI) 43.1 Intake and Output for Last 24 Hours 02/05/18 02/06/18 02/07/18 23:59 23:59 23:59 Intake Total 1815 / 1815 1340 / 1340 0 / 0 Output Total 2200 / 2200 1625 / 1625 625 / 625 Balance -385 / -385 -285 / -285 -625 / -625 Laboratory Tests Past 24 Hrs 02/07/18 05:45 Sodium 138 Potassium 4.0 Chloride 104 Carbon Dioxide 27.0 Anion Gap 7 BUN 24 H Creatinine 1.31 H Estim Creat Clear Calc 57.48 Est GFR (MDRD) Af Amer 70 Est GFR (MDRD) Non-Af 58 L BUN/Creatinine Ratio 18.3 Glucose 184 H Calcium 7.8 L POC Glucose 02/07/18 02/06/18 02/06/18 06:45 21:33 16:17 POC Glucose 163 H 258 H 212 H Medical Necessity - Tobacco Use Smoking Status: Former smoker Tobacco Use: Cigarettes, Cigars, Pipe Assessment/Plan All Active Problems Acute DVT (deep venous thrombosis) (Acute) RECOMMENDATIONS: 1. Continue baseline diuretic regimen. 2. Continue empiric BiPAP therapy at ECF 3. Recommend outpatient formal diagnostic polysomnogram. 4. No supplemental oxygen indicated for discharge 5. Okay to discharge from my perspective IMPRESSIONS: 1. Acute hypoxic respiratory insufficiency Patient is significantly improved compared to previous. Patient responded well to diuretic therapy over the last 24 hours. Patient is reporting subjective improvement with the use of BiPAP therapy. Walking oximetry does not show any significant desaturation. Okay to be discharged to an ECF from my perspective. Patient should continue on BiPAP 12/6 cm of water empirically. Upon discharge from ECF, formal polysomnogram would be indicated. 2. Questionable sleep disordered breathing The patient has symptoms concerning for underlying obstructive sleep apnea. Recommend formal outpatient polysomnogram. The patient can be started empirically on BiPAP with naps and nightly at a pressure support of 12/6 cm of water with humidification. 3. Heart failure with preserved ejection fraction Continue baseline diuretic regimen with medical management 4. Lower extremity DVT status post IVC filter placement/morbid obesity/non- Hodgkin's lymphoma with brain metastases/diabetes Complicates care, management, recovery and prognosis. Continue to hold potential nephrotoxic medications. This note was generated with [employer] software. It may contain incorrect words, spelling, and punctuation that were not noted in checking the note before signing. Code Visit Inpatient E&M: 71602 Subs Hosp L2
[2018-02-07 11:56] LABS: Bedside Glucose 295 mg/dL (70-110)
--- NOTE | 2018-02-07 14:50 | PCM.TXEXTCAR ---
- Diet 02/03/18 17:10 Diet: Cardiac: Calorie-Controlled Is pt able to select menu?: Yes How many daily calories?: 1800 calorie - Routine Orders/Code Status O2 Liters per Minute: BiPAP QHS and with naps. O2 Frequency: PRN Keep PO Greater than or Equal to (%): 90 Routine Lab Work: CBC, BMP Code Status: Full Code - Wound(s) right buttock Wound Type: Pressure Injury RIGHT NECK Wound Type: Surgical Incision - Therapies Physical Therapy: Eval and Treat Occupational Therapy: Eval and Treat - Allergies/Procedures Done in Hospital Allergies/Adverse Reactions: Allergies niacin Allergy (Verified 02/02/18 10:58) Hives piroxicam [From Feldene] Adverse Reaction (Verified 02/02/18 10:58) Upset Stomach rivaroxaban [From Xarelto] Adverse Reaction (Verified 02/02/18 10:58) BRAIN BLEED Procedures: None - Type of Care/Length of Stay Estimated LOS: Convalescent Care Less Than 30 days Type of Care Needed: Skilled Rehab Potential: Fair Prognosis: Fair - Additional Orders/Day of Discharge Day of Discharge: 02/07/18 - Dietary and Speech Recommendations Dietitian Recommendations/Changes: Rec CHO controlled, low sodium diet when medically appropriate. May benefit from 1 packet Gurdeep BID for wound healing. - Follow Up Care Primary Care Physician: Jorge Dao DO [Primary Care Provider] - Within 2 Weeks Please Follow Up With: Michele Landeros MD When: 1 month
--- NOTE | 2018-02-07 14:54 | PCM.DC.SUM ---
Discharge Date and Diagnosis - Problem List Patient Problems: Active and Suspected Problems Acute respiratory failure with hypoxia (Acute) Acute DVT (deep venous thrombosis) (Acute) Date of Admission: 02/02/18 Date of Discharge: 02/07/18 - Primary Discharge Diagnosis Active and Suspected Problems Acute DVT (deep venous thrombosis) (Acute) - Secondary Discharge Diagnosis Chronic Problems CKD (chronic kidney disease), stage III (Chronic) Weakness (Chronic) CVA (cerebral vascular accident) (Chronic) Brain metastases (Chronic) Pancytopenia (Chronic) Non Hodgkin's lymphoma (Chronic) Hypertension (Chronic) Morbid obesity (Chronic) History of DVT (deep vein thrombosis) (Chronic) Diabetes mellitus (Chronic) Hyperlipidemia (Chronic) Hospital Course and Treatment Imaging Results: Clinical Impression(s) from Imaging Studies Lung Scan-VQ NM 02/02/18 12:13 IMPRESSION: 1. NORMAL 99m Tc DTPA aerosol ventilation/Tc 99m MAA pulmonary perfusion imaging examination, according to PIOPED II interpretive criteria. (Sojeanetteman et al, Radiology 246: 941, 2008 Somayda et al, J Nucl Med 49: 1741, 2008). Electronically Signed: Marcelo Bell DO at 14:47 EDT Tel , Service support , Chest X-Ray 02/02/18 14:03 IMPRESSION: No acute abnormality is seen. Electronically Signed: Rayo Fowler MD at 14:42 EDT Tel [phone], Service support , Chest CT 02/02/18 17:23 IMPRESSION: No acute abnormalities are seen on the chest CT. There is minimal dependent atelectasis in both lower lobes. There is no focal consolidation. There are no lung nodules. There is no pleural effusion or significant lymphadenopathy. Electronically Signed: Elba Jaimes MD at 19:47 EDT Tel Direct: [phone], Service support , Michele Landeros Operations: None Procedures: IVC filter placement Summary of Care Provided: The patient is a 67 year old M since with shortness of breath. Patient diagnosed with acute hypoxic respiratory failure though no objective evidence was noted for hypoxia and patient being short of breath. Patient underwent a workup. Patient had a normal VQ scan but did have a right soleal DVT. Given patient's history of intracranial hemorrhage, is felt best the patient be a candidate for inferior vena cava filter. Vision underwent an IVC filter on the . Was felt bipolars patient's respiratory issues were due to atelectasis but also sleep-disordered breathing. Patient has been set up for BiPAP at his facility. Patient will need follow-up with pulmonology regards to obtaining a outpatient polysomnogram. Patient is otherwise doing well on room air air. Patient will have his BiPAP with naps but also at night. Patient will be discharged back to a [facility] facility. [] Discharge Diet: Low fat/ Low Cholesterol Discharge Activity: Return to Normal Activity Call your doctor if you observe: Fever of 101 or Higher, Shortness of breath Home Medications: Medications to take at Discharge Ascorbic Acid [Vitamin C] 1,000 mg PO DAILY@0800 05/30/13 Paroxetine HCl [Paxil] 30 mg PO DAILY 12/04/14 Multivitamins,Therapeutic [Multivitamin] 1 tablet PO DAILYCM tablet 03/12/16 Amlodipine [Norvasc] 5 mg PO DAILY 07/08/17 Insulin Glargine [Lantus SoloStar Pen] 50 units SC QHS 07/08/17 Insulin Glargine/Lixisenatide [Soliqua 100 Unit-33 Mcg/ml Pen] 50 unit SQ DAILY 12/15/17 Pantoprazole Sodium 40 mg PO DAILY 12/15/17 Allopurinol [Zyloprim] 300 mg PO DAILY 02/02/18 Atorvastatin Calcium [Lipitor] 80 mg PO QHS 02/02/18 Docusate Sodium [Dok] 100 mg PO BID PRN 02/02/18 Doxycycline Hyclate 100 mg PO BID 02/02/18 Furosemide 40 mg PO DAILY 02/02/18 Insulin Lispro [Humalog KwikPen] 5 units SC TIDCM 02/02/18 Insulin Lispro [Humalog KwikPen] See Protocol SC TIDCM 02/02/18 Metoprolol Tartrate [Lopressor (beta jacoby)] 12.5 mg PO BID 02/02/18 Nystatin Powder [Mycostatin Powder] 1 applicatio TOPICAL BID PRN 02/02/18 Polyethylene Glycol 3350 [Miralax] 17 gm PO BID PRN 02/02/18 Albuterol Aerosols [Ventolin Aerosols] 2.5 mg INHALATION Q2H PRN PRN vial.neb. 02/07/18 traMADol [Ultram] 50 mg PO Q6H PRN PRN 2 Days #8 tab 02/07/18 Following Prescrptions Were Given to Patient: traMADol [Ultram] 50 mg PO Q6H PRN PRN 2 Days #8 tab PRN Reason: Pain Primary Care Physician: Jorge Dao DO [Primary Care Provider] - Within 2 Weeks Please Follow Up With: Michele Landeros MD When: 1 month Disposition: [facility] facility Minutes spent on discharge:: 36 Patient Condition:: Fair Medical Necessity - Tobacco Use Smoking Status: Former smoker Tobacco Use: Cigarettes, Cigars, Pipe Meaningful Use Info Meaningful Use Diagnoses (Choose all that apply): None applicable Code Visit Inpatient E&M: 67459 Disch Hosp
--- NOTE | 2018-02-07 15:24 | NURSING ---
report called to Natacha at [facility]
== END 2018-02-07 15:38 | disposition skilled nursing facility (03) | DRG 167 ==
LOC: ED 13:30 → PCU 15:23
PROVIDERS: Internal Medicine; Internal Medicine Critical Care Medicine; Physician Assistant; Admitting Provider Internal Medicine; Emergency Provider Emergency Medicine; Family Provider Family Medicine; PCP Family Medicine
DX: J96.01 Acute respiratory failure with hypoxia (principal); C85.99 Non-Hodgkin lymphoma, unspecified, extranodal and solid organ sites; I82.511 Chronic embolism and thrombosis of right femoral vein; I82.4Z2 Acute embolism and thrombosis of unspecified deep veins of left distal lower extremity; Z68.41 Body mass index [BMI] 40.0-44.9, adult; I13.0 Hypertensive heart and chronic kidney disease with heart failure and stage 1 through stage 4 chronic kidney disease, or unspecified chronic kidney disease; I50.30 Unspecified diastolic (congestive) heart failure; N17.9 Acute kidney failure, unspecified; E11.22 Type 2 diabetes mellitus with diabetic chronic kidney disease; N18.3 Chronic kidney disease, stage 3 (moderate); E78.5 Hyperlipidemia, unspecified; E66.01 Morbid (severe) obesity due to excess calories; Z87.891 Personal history of nicotine dependence; Z79.4 Long term (current) use of insulin; Z86.73 Personal history of transient ischemic attack (TIA), and cerebral infarction without residual deficits
CPT/HCPCS: 36415; 36600; 37191; 71045; 71250; 76937; 78582; 80048; 82009; 82803; 82962; 83880; 84484; 85025; 93005; 93970; 94002; 94003; 94640; 97110; 97116; 97162; 97165; 97530; 99283; A9540; A9567; J7030; Q9967; A4216; C1769; C1880